=== PATIENT | female | born 1935 | race Caucasian/White ===

== ENCOUNTER 2017-03-20 20:10 | Emergency (ER) | payer OTHER, MEDICARE ==
[~2017-03-20] VITALS: Ht 152.4 cm; Wt 96.7 kg
[~2017-03-20 20:10] MED LIST: ASPI81TA28 PO; CARB100C2 PO; CARV25TA2 PO; CYAN10005 PO; FURO80TA63 PO; LOSA1TAB38 PO; METO5TAB25 PO; MULT-190 PO; NTRGSL/4 SL; ROSU5TAB PO; vit D3
[2017-03-20 20:16] VITALS: TEMP 36.7; Ht 152.4 cm; Wt 96.7 kg
[2017-03-20] MEDS ORDERED: MULT-610 PO (21:08)
[2017-03-20] MEDS ORDERED: COEN90TA PO (21:08)
[2017-03-20] MEDS ORDERED: BIOT1CAP4 PO (21:08)
--- NOTE | 2017-03-20 21:34 | DIAGNOSTIC IMAGING REPORT ---
RIGHT HUMERUS 2 VIEWS CLINICAL HISTORY: Unspecified trauma. FINDINGS: AP and lateral views of the right humerus are obtained. No prior studies are available for comparison at the time of dictation. The skeletal structures are osteopenic. There is no radiographic evidence of humeral fracture. 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 There is superior subluxation of the humeral head with loss of the subacromial space suggesting chronic rotator cuff injury. There is degenerative spurring along the humeral head. The elbow joint is grossly maintained. The overlying soft tissues are normal as imaged. IMPRESSION: Osteopenia and degenerative change as above. There is no radiographic evidence of right humeral fracture. Electronically signed by: Leo Trujillo M.D. 03/20/2017 9:32 PM Dictated Date/Time: 03/20/2017 9:31 PM
--- NOTE | 2017-03-20 21:38 | DIAGNOSTIC IMAGING REPORT ---
RIGHT KNEE 2 VIEWS CLINICAL HISTORY: Unspecified trauma. FINDINGS: AP and crosstable lateral views of the right knee are obtained. No prior studies are available for comparison at the time of dictation. The skeletal structures are osteopenic. No fracture is seen. A hinged right knee arthroplasty is in near anatomic alignment. No periprosthetic lucency is identified. There has been undersurface remodeling of the patella. No joint effusion is identified. Mild prepatellar soft tissue swelling is noted. IMPRESSION: Mild prepatellar soft tissue sign. No right knee fracture is identified. Electronically signed by: Leo Trujillo M.D. 03/20/2017 9:37 PM Dictated Date/Time: 03/20/2017 9:35 PM
--- NOTE | 2017-03-20 21:40 | DIAGNOSTIC IMAGING REPORT ---
LEFT SHOULDER 3 VIEWS CLINICAL HISTORY: Unspecified trauma. FINDINGS: 3 views of the left shoulder are obtained. No prior studies are available for comparison at the time of dictation. The skeletal structures are osteopenic. There is no radiographic evidence of fracture or dislocation. Advanced arthritic change is seen at the acromioclavicular joint as well as the glenohumeral joint. Large spurs arise from the humeral head. There is superior subluxation of the humeral head with near complete loss of the subacromial space suggesting chronic rotator cuff injury. The overlying soft tissues are within normal limits. Surgical clips are noted in the left axilla. The partially imaged left upper lobe lung parenchyma appears clear. There is advanced atherosclerotic calcification of the thoracic aorta. IMPRESSION: Osteopenia and advanced arthritic change as above. No fracture or dislocation is seen in the left shoulder. Electronically signed by: Leo Trujillo M.D. 03/20/2017 9:38 PM Dictated Date/Time: 03/20/2017 9:37 PM
[2017-03-20 22:52] VITALS: BP 153/88; PULSE 76; O2SAT 94
--- NOTE | 2017-03-20 23:01 | EMERGENCY ROOM VISIT NOTE ---
History Report prepared by Vinay: Alexandra Shaikh Under the Supervision of: Dr. Frank Rodriguez M.D. First contact with patient: 20:33 Chief Complaint: FALL Stated Complaint: FALL/ RT KNEE PAIN History of Present Illness The patient is an 81 year old female who presents to the Emergency Room with complaints of a fall EMERGENCY MEDICAL TECH. The patient went to sit on the toilet, but missed and fell forwards. She fell onto her right knee on the concrete floor and hit her right arm on a piece of furniture. She states that she just lost her balance and was not dizzy before the fall. She is having pain in her left shoulder. She denies any head injury or LOC. She denies any neck pain, chest pain, abdominal pain, or any bleeding. She has some SOB which is not new for her. She denies any recent illness. She has been eating well. She is not on any blood thinners. She lives at home with her and uses a walker to get around. She has a history of back pain which was not the cause of her fall today. She has a history of COPD, right knee replacement, and hypertension. She denies any history of heart problems. Source of History: patient Onset: EMERGENCY MEDICAL TECH Position: other (global) Quality: other (fall) Timing: other (episodic) Associated Symptoms: No LOC, No neck pain, No chest pain, No abdominal pain Note: Pt reports right knee pain, bilateral shoulder pain. Pt denies head injury, dizziness. Review of Systems See HPI for pertinent positives & negatives. A total of 10 systems reviewed and were otherwise negative. Past Medical & Surgical Medical Problems: (1) COPD (chronic obstructive pulmonary disease) Surgical Problems: (1) Status post right knee replacement Old medical records were reviewed. Nurse's notes were reviewed and I agree with. Family History Noncontributory secondary to age. Social History Smoking Status: Former Smoker Marital Status: Housing Status: lives with significant other Current/Historical Medications Scheduled Aspirin (Aspirin Ec), 81 MG PO DAILY Biotin (Biotin), 1 CAP PO DAILY Carvedilol (Coreg), 1 TAB PO BID Coenzyme Q10 (Ubidecarenone) (Co Q10), 1 TAB PO DAILY Cyanocobalamin (Vitamin B-12), 1,000 MCG PO DAILY Furosemide (Lasix), 1 TAB PO BID Losartan Potassium (Cozaar), 1 TAB PO DAILY Metolazone (Zaroxolyn), 5 MG PO DAILY Multiple Vitamins W/ Minerals (Centrum Adults), 1 TAB PO DAILY Nitroglycerin (Nitrostat), 1 TAB SL UD Ocuvite Preservision (Ocuvite Preservision), 1 TAB PO DAILY Rosuvastatin Calcium (Crestor), 1 TAB PO DAILY Miscellaneous Medications Carbamazepine (Tegretol), 100 MG PO Allergies Coded Allergies: Hydromorphone (Verified Allergy, Severe, SHORTNESS OF BREATH, 03/20/17) Physical Exam Vital Signs Date Time Temp Pulse Resp B/P (MAP) Pulse Ox O2 Delivery O2 Flow Rate FiO2 03/20/17 22:52 76 18 153/88 94 Room Air 03/20/17 21:55 61 18 137/50 93 Room Air 03/20/17 20:29 68 03/20/17 20:16 36.7 67 18 194/71 97 Room Air Physical Exam General: Non ill appearing older female in no acute distress. Well developed well nourished, breathing comfortably on room air. Normal speech HEENT: Normal cephalic atraumatic. Pupils are equal round and reactive to light. Sclerae anicteric. Extraocular movements are intact. Oropharynx is pink with moist mucous membranes. No swelling of the mouth lips or tongue. Neck: Supple with a midline trachea. No meningeal signs or stiffness, no JVD or bruits. No Stridor. Chest: Clear to auscultation bilaterally. No wheezes or rhonchi. No increased work of breathing. Heart: regular rate and rhythm. Abdomen: Soft nontender, nondistended without rebound guarding or rigidity. Extremities: Minimal pain in right humerus, but full ROM of shoulder and elbow. Pain with abduction of the left shoulder with some limitation, normal motor and sensory. Right knee able to flex and extend with a bruise that has pain with doing so. Spine/Back. Non tender to palpation. No CVA tenderness Skin: Good turgor without rashes. Neurologic exam: Cranial nerves two through 12 are intact. Motor and sensation are intact and symmetrical throughout. Medical Decision & Procedures ER Provider Diagnostic Interpretation: X-ray results as stated below per interpretation by me and the radiologist: RIGHT HUMERUS 2 VIEWS CLINICAL HISTORY: Unspecified trauma. FINDINGS: AP and lateral views of the right humerus are obtained. No prior studies are available for comparison at the time of dictation. The skeletal structures are osteopenic. There is no radiographic evidence of humeral fracture. 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 There is superior subluxation of the humeral head with loss of the subacromial space suggesting chronic rotator cuff injury. There is degenerative spurring along the humeral head. The elbow joint is grossly maintained. The overlying soft tissues are normal as imaged. IMPRESSION: Osteopenia and degenerative change as above. There is no radiographic evidence of right humeral fracture. Electronically signed by: Leo Trujillo M.D. 03/20/2017 9:32 PM Dictated Date/Time: 03/20/2017 9:31 PM RIGHT KNEE 2 VIEWS CLINICAL HISTORY: Unspecified trauma. FINDINGS: AP and crosstable lateral views of the right knee are obtained. No prior studies are available for comparison at the time of dictation. The skeletal structures are osteopenic. No fracture is seen. A hinged right knee arthroplasty is in near anatomic alignment. No periprosthetic lucency is identified. There has been undersurface remodeling of the patella. No joint effusion is identified. Mild prepatellar soft tissue swelling is noted. IMPRESSION: Mild prepatellar soft tissue sign. No right knee fracture is identified. Electronically signed by: Leo Trujillo M.D. 03/20/2017 9:37 PM Dictated Date/Time: 03/20/2017 9:35 PM LEFT SHOULDER 3 VIEWS CLINICAL HISTORY: Unspecified trauma. FINDINGS: 3 views of the left shoulder are obtained. No prior studies are available for comparison at the time of dictation. The skeletal structures are osteopenic. There is no radiographic evidence of fracture or dislocation. Advanced arthritic change is seen at the acromioclavicular joint as well as the glenohumeral joint. Large spurs arise from the humeral head. There is superior subluxation of the humeral head with near complete loss of the subacromial space suggesting chronic rotator cuff injury. The overlying soft tissues are within normal limits. Surgical clips are noted in the left axilla. The partially imaged left upper lobe lung parenchyma appears clear. There is advanced atherosclerotic calcification of the thoracic aorta. IMPRESSION: Osteopenia and advanced arthritic change as above. No fracture or dislocation is seen in the left shoulder. Electronically signed by: Leo Trujillo M.D. 03/20/2017 9:38 PM Dictated Date/Time: 03/20/2017 9:37 PM ED Course 2040: Past medical records reviewed. The patient was evaluated in room C3, and a complete history and physical examination were performed. 6: Upon reevaluation, the patient is resting comfortably. I discussed the results and treatment plan with her and her family. They verbalized agreement of the treatment plan. The patient was discharged home after ambulatory trial. Medical Decision Differentials include, but are not limited to; orthopedic injury, syncope, dislocation, contusion, fracture. This patient comes in as described above. She suffered mechanical fall and injured her right knee left shoulder and right humerus. She looks well otherwise there is no syncope. There is no head trauma. She's had no chest pain or shortness of breath. She's not any blood thinners. X-rays are obtained of the left shoulder as well as the right humerus and the right knee, there are no fractures or dislocations seen. She was able ambulate and feels up to going home. I did have an Burton wrap placed and she was encouraged to use her walker. Her left shoulder has some pain and limitation with abduction but does not appear to be dislocated. She could've had a rotator cuff injury. She does not feel she will do well with a sling given the walker use. She is going to use [id number] Tylenol and/or ibuprofen but do not exceed over-the- counter recommended dosages. She was encouraged to follow-up with her regular doctor tomorrow for recheck and return to ER if: increasing pain, worsening of symptoms, any new problems or concerns. She is happy with plan discharged to home. Medication Reconcilliation Current Medication List: was personally reviewed by me Blood Pressure Screening Patient's blood pressure: Elevated blood pressure Blood pressure disposition: Elevated BP felt to be situational Impression Primary Impression: Contusion of right knee Additional Impressions: Left shoulder strain Contusion of right arm Scribe Attestation The scribe's documentation has been prepared under my direction and personally reviewed by me in its entirety. I confirm that the note above accurately reflects all work, treatment, procedures, and medical decision making performed by me. Departure Information Dispostion Home / Self-Care Referrals Bettie Wyman D.O. (PCP) Forms HOME CARE DOCUMENTATION FORM, IMPORTANT VISIT INFORMATION Patient Instructions My [facility] Additional Instructions Rest. May use [id number] Tylenol and/or ibuprofen if needed. Do not exceed the [id number] recommended dosages Use Burton wrap if needed Use your walker when you are walking and getting up and down Return if: Increasing pain, worsening symptoms, fever or chills, any new problems or concerns Problem Qualifiers
== END 2017-03-20 23:07 | disposition home or self-care (01) ==
LOC: EDBD 20:10 → C.EDC 20:12
DX: S80.01XA Contusion of right knee, initial encounter (principal); S40.021A Contusion of right upper arm, initial encounter; S46.912A Strain of unspecified muscle, fascia and tendon at shoulder and upper arm level, left arm, initial encounter; W19.XXXA Unspecified fall, initial encounter; J44.9 Chronic obstructive pulmonary disease, unspecified; Z96.651 Presence of right artificial knee joint; Z87.891 Personal history of nicotine dependence; Z79.82 Long term (current) use of aspirin; Z79.899 Other long term (current) drug therapy; Z88.5 Allergy status to narcotic agent

== ENCOUNTER 2017-07-07 18:51 | Emergency (ER) | payer OTHER, MEDICARE ==
[~2017-07-07] VITALS: Ht 152.4 cm; Wt 97.0 kg
[~2017-07-07 18:51] MED LIST changes: +BIOT1CAP4 PO; +COEN90TA PO; +MULT-610 PO; -vit D3
[2017-07-07 18:55] VITALS: TEMP 37; Ht 152.4 cm; Wt 97.0 kg
[2017-07-07] MEDS ORDERED: OXYCODONE/ACETAMINOPHEN 5-325 TAB PO STA (19:11)
--- NOTE | 2017-07-07 19:35 | EMERGENCY ROOM VISIT NOTE ---
History First contact with patient: 18:53 Chief Complaint: LEG PAIN,LEG INJURY Stated Complaint: L KNEE PAIN History of Present Illness The patient is a 81 year old female who presents to the Emergency Room with complaints of left knee pain for approximately 1 month. The patient did sustain a mechanical fall and landed on the knee. She has had trouble with it since. She has tried Tylenol with no relief of the pain. She is having difficulty ambulating at home. She typically ambulates with a walker. She lives with her elderly . She denies any other injuries. No chest pain or difficulty breathing. Review of Systems 6 system review negative. Please see pertinent positives in the history of present illness section. Past Medical/Surgical History Medical Problems: (1) COPD (chronic obstructive pulmonary disease) Surgical Problems: (1) Status post right knee replacement Social History Smoking Status: Former Smoker Marital Status: Housing Status: lives with significant other Current/Historical Medications Scheduled Aspirin (Aspirin Ec), 81 MG PO HS Biotin (Biotin), 1 CAP PO DAILY Carbamazepine (Tegretol), 600 MG PO HS Carvedilol (Coreg), 1 TAB PO BID Cholecalciferol (Vitamin D3), 1,000 UNITS PO DAILY Coenzyme Q10 (Ubidecarenone) (Co Q-10), 200 MG PO QAM Cyanocobalamin (B-12), 2,500 MCG PO QAM Furosemide (Lasix), 80 TAB PO BID Losartan Potassium (Cozaar), 1 TAB PO DAILY Multiple Vitamins W/ Minerals (Centrum Adults), 1 TAB PO DAILY Ocuvite Preservision (Ocuvite Preservision), 1 TAB PO DAILY Rosuvastatin Calcium (Crestor), 1 TAB PO DAILY Sertraline (Zoloft), 25 MG PO QAM Scheduled PRN Nitroglycerin (Nitrostat), 1 TAB SL UD PRN for Chest Pain Oxycodone/Acetaminophen 5MG/325MG (Percocet 5MG/325MG), 1 TAB PO Q4H PRN for Pain Physical Exam Vital Signs Date Time Temp Pulse Resp B/P (MAP) Pulse Ox O2 Delivery O2 Flow Rate FiO2 07/07/17 20:48 58 18 159/64 94 Room Air 07/07/17 18:55 37.0 59 18 176/67 95 Room Air Physical Exam GENERAL: 81-year-old female, in no acute distress, nondiaphoretic, well- developed well-nourished. SKIN: The skin was HEAD: Normocephalic atraumatic. MUSCULOSKELETAL: LEFT LEG: Soft tissue swelling noted to the left knee. Flexion is limited secondary to pain. No ligamentous instability appreciated. Well-healed incisional scar over the patella noted. DP pulses +2 bilaterally. NEURO: Patient was alert and oriented to person place and time. Normal sensation to touch. No focal neurological deficits. Medical Decision & Procedures ER Provider Diagnostic Interpretation: Left knee x-ray IMPRESSION: 1. Small knee joint effusion without acute fracture or dislocation. 2. Left knee arthroplasty and prior patellar resurfacing without evidence of hardware complication. The above report was generated using voice recognition software. It may contain grammatical, syntax or spelling errors. Electronically signed by: Carlos Lewis M.D. 07/07/2017 8:19 PM Dictated Date/Time: 07/07/2017 8:18 PM The status of this report is Signed. Draft = Not yet reviewed or approved by Radiologist. Signed = Reviewed and approved by Radiologist. <AttendingPhy></AttendingPhy> <FamilyPhy>Bettie Wyman D.O.</FamilyPhy> < PrimaryPhy>Bettie Wyman D.O.</PrimaryPhy> <UnitNumber>[id number]</UnitNumber> <VisitNumber>[id number]</VisitNumber> Medications Administered Medications (Trade) Dose Ordered Sig/Tony Route Start Time Stop Time Status Last Admin Dose Admin Oxycodone/ Acetaminophen (Percocet 5-325mg Tab) 1 tab NOW STAT PO 07/07/17 19:11 07/07/17 19:12 DC 07/07/17 19:32 1 TAB ED Course The patient was seen and examined She was given 1 Percocet for pain Imaging was performed and reviewed The patient was reassessed. She was much more comfortable. We discussed the results of her x-rays. She was understanding. The patient was also seen and examined by myself supervising physician who is in agreement with my plan. She was given a knee immobilizer. She ambulated with a walker. Discharge instructions were reviewed, and she was discharged in good condition Medical Decision Differential diagnosis: Contusion, effusion, ligamentous injury, fracture This patient is an 81-year-old female that presents to emergency department with left knee pain after a mechanical fall approximately 1 month ago. On exam , she did have soft tissue swelling. She had limited range of motion of the knee. An x-ray shows a small joint effusion. No fracture. We discussed disposition options. She was offered a stay at [facility]. The patient was concerned about her demented at home. She would like to be discharged home. She was given information about home health. She was also given a prescription for Percocet as this helped with her pain. She was encouraged to return to the emergency department with any worsening symptoms or new concerns. She was in agreement with this plan. This chart was completed in part utilizing [employer] Speech Voice Recognition software. Attempts were made to minimize the grammatical errors, random word insertions, pronoun errors and incomplete sentences. Any formal questions or concerns about the content, text or information contained within the body of this dictation should be directly addressed to the provider for clarification. Medication Reconcilliation Current Medication List: was personally reviewed by me Blood Pressure Screening Patient's blood pressure: Elevated blood pressure Blood pressure disposition: Did not require urgent referral Impression Primary Impression: Left knee pain Departure Information Dispostion Home / Self-Care Condition GOOD Prescriptions Oxycodone/Acetaminophen 5MG/325MG (PERCOCET 5MG/325MG) Tab 1 TAB PO Q4H Y for Pain, #15 TAB For Initial Treatment Prov: Sarah Garcia PA-C 07/07/17 Referrals Bettie Wyman D.O. (PCP) Manuel Alcantara D.O. Patient Instructions My [facility] Additional Instructions You were evaluated in the emergency department for knee pain. There is a small amount of fluid on the knee consistent with an injury. No fractures were seen on the x-ray. Please use the knee immobilizer and a walker while up moving around. Please elevate the leg and apply ice for 20 minute intervals Please take one Percocet every 4 hours as needed for pain. Do not drink alcohol or drive with taking this medication. Please take a stool softener such as Colace with this medication as it may cause constipation. Please follow-up with your primary care physician this week for a recheck. Of note, your blood pressure was elevated at this visit. It should be rechecked. If this is not improving, please see an orthopedic doctor. A number has been provided for Dr. Alcantara Do not hesitate to return to the emergency department with any new or concerning symptoms
--- NOTE | 2017-07-07 20:21 | DIAGNOSTIC IMAGING REPORT ---
L KNEE 3 VIEWS HISTORY: 81 years-old Female l knee pain acute left knee pain with recent fall COMPARISON: None available TECHNIQUE: AP, lateral and sunrise views of the left knee FINDINGS: Left knee arthroplasty with prior patellar resurfacing noted. Bones are mildly demineralized. No evidence of hardware complication. No acute fracture or dislocation identified. Small knee joint effusion. Patella is well seated within the trochlear groove. Prominent marginal spurring of the patella. IMPRESSION: 1. Small knee joint effusion without acute fracture or dislocation. 2. Left knee arthroplasty and prior patellar resurfacing without evidence of hardware complication. The above report was generated using voice recognition software. It may contain grammatical, syntax or spelling errors. Electronically signed by: Carlos Lewis M.D. 07/07/2017 8:19 PM Dictated Date/Time: 07/07/2017 8:18 PM
--- NOTE | 2017-07-07 20:34 | EMERGENCY ROOM VISIT NOTE ---
ED Visit Note First contact with patient: 18:53 This Patient was discussed with the physician Tow Motor Driver, Sarah Garcia PA-C. The pertinent historical and physical exam findings were confirmed. I agree with the studies ordered and with the interpretations of these studies. I agree with the disposition and care plan.
[2017-07-07] MEDS ORDERED: CARB200T PO (20:42)
[2017-07-07] MEDS ORDERED: CHOL1000 PO (20:42)
[2017-07-07] MEDS ORDERED: COEN1CAP37 PO (20:42)
[2017-07-07] MEDS ORDERED: SERT25TA PO (20:42)
[2017-07-07] MEDS ORDERED: CYAN1TAB17 PO (20:42)
[2017-07-07] MEDS ORDERED: OXYC-57 PO (20:47)
[2017-07-07 21:40] VITALS: BP 158/61; PULSE 58; O2SAT 92
== END 2017-07-07 21:40 | disposition home or self-care (01) ==
LOC: C.EDC 18:51 → EDBD 18:51 → C.EDC 21:40
DX: M25.562 Pain in left knee (principal); J44.9 Chronic obstructive pulmonary disease, unspecified; Z91.81 History of falling; Z96.651 Presence of right artificial knee joint; Z87.891 Personal history of nicotine dependence; Z79.82 Long term (current) use of aspirin

== ENCOUNTER 2018-02-26 17:04 | Emergency (ER) | payer OTHER, MEDICARE ==
[~2018-02-26] VITALS: Ht 152.4 cm; Wt 82.0 kg
[~2018-02-26 17:04] MED LIST changes: -CARB100C2 PO; +CARB200T PO; +CHOL1000 PO; +COEN1CAP37 PO; -COEN90TA PO; -CYAN10005 PO; +CYAN1TAB17 PO; -METO5TAB25 PO; +SERT25TA PO
[2018-02-26 17:06] VITALS: TEMP 37; Ht 152.4 cm; Wt 82.0 kg
[2018-02-26] MEDS ORDERED: OXYCODONE/ACETAMINOPHEN 5-325 TAB PO STA (17:21)
--- NOTE | 2018-02-26 18:32 | DIAGNOSTIC IMAGING REPORT ---
ULTRASOUND L VENOUS DOPP LOWER EXT UNILAT CLINICAL HISTORY: Left leg pain COMPARISON STUDY: No previous studies for comparison. FINDINGS: Real-time and color flow Doppler imaging were performed. Flow was seen within the femoral, popliteal and calf veins with no intraluminal thrombus demonstrated. The saphenous vein is patent. IMPRESSION: No evidence of left lower extremity DVT. Electronically signed by: Gilles Walters M.D. 02/26/2018 6:31 PM Dictated Date/Time: 02/26/2018 6:31 PM
--- NOTE | 2018-02-26 18:43 | EMERGENCY ROOM VISIT NOTE ---
History First contact with patient: 17:13 Chief Complaint: BACK PAIN Stated Complaint: SCIATIC PAIN History of Present Illness The patient is a 82 year old female who presents to the Emergency Room via private vehicle accompanied by male with complaints of "sciatic pain". The patient states he has a history of sciatica. She notes that it originates in the left buttock region and extends down to her left leg. She is felt this way numerous times before and usually is alleviated by an injection in this region by Dr. Evans. Patient states that she came here today with the hope she would have an injection in this region. She denies any dysuria, chest pain, shortness of breath, fever, falls or trauma to the injury. Her pain is a 10/ 10. It is worse with sitting or movements. No abdominal pain. No lower extremity weakness, bowel or bladder incontinence, numbness or tingling in the genital region. Review of Systems A complete 10-point Review of Systems was discussed with the patient, with pertinent positives and negatives listed in the History of Present Illness. All remaining Review of Systems questions can be considered negative unless otherwise specified. Past Medical/Surgical History Medical Problems: (1) COPD (chronic obstructive pulmonary disease) Surgical Problems: (1) Status post right knee replacement Social History Smoking Status: Former Smoker Marital Status: Housing Status: lives with significant other Current/Historical Medications Scheduled Aspirin (Aspirin Ec), 81 MG PO HS Biotin (Biotin), 1 CAP PO DAILY Carbamazepine (Tegretol), 600 MG PO HS Carvedilol (Coreg), 1 TAB PO BID Cholecalciferol (Vitamin D3), 1,000 UNITS PO DAILY Coenzyme Q10 (Ubidecarenone) (Co Q-10), 200 MG PO QAM Cyanocobalamin (B-12), 2,500 MCG PO QAM Furosemide (Lasix), 80 TAB PO BID Losartan Potassium (Cozaar), 1 TAB PO DAILY Multiple Vitamins W/ Minerals (Centrum Adults), 1 TAB PO DAILY Ocuvite Preservision (Ocuvite Preservision), 1 TAB PO DAILY Rosuvastatin Calcium (Crestor), 1 TAB PO DAILY Sertraline (Zoloft), 25 MG PO QAM Scheduled PRN Nitroglycerin (Nitrostat), 1 TAB SL UD PRN for Chest Pain Oxycodone Ir (Roxicodone Ir), 1 TAB PO Q8 PRN for Pain Physical Exam Vital Signs Date Time Temp Pulse Resp B/P (MAP) Pulse Ox O2 Delivery O2 Flow Rate FiO2 02/26/18 20:16 80 20 186/67 98 02/26/18 18:44 54 18 170/57 99 Room Air 02/26/18 17:06 37.0 68 20 176/73 95 Room Air Physical Exam VITAL SIGNS - Vital signs and nursing notes were reviewed. Stable. Afebrile. Hypertensive. GENERAL -82-year-old female appearing her stated age who is in no acute distress. Communicates well with provider and answers questions appropriately. SKIN - Without rashes. No meningeal or petechial rash. Left lower extremity unremarkable to inspection. HEAD - NC/AT. EYES - PERRL with EOMI bilaterally. Sclera anicteric. Palpebral conjunctiva pink and moist with no injection noted. CARDIAC - RRR with S1/S2. No murmur, rubs, or gallops appreciated. ABDOMEN - Abdominal contour normal without pulsations or visible masses. BS normoactive all four quadrants. No tenderness, palpable masses, hepatosplenomegaly, or ascites noted. EXTREMITIES - No clubbing or peripheral cyanosis. No pretibial edema present. Tenderness of the left gluteal region extending down to the left foot. +5/5 strength noted in UE/LE bilaterally. NEUROLOGIC - Cranial nerves II through XII grossly intact. Sensory intact to light touch throughout. She is neurovascularly intact in left lower extremity. No bony tenderness. PSYCH - A&O, and cooperates fully with examiner. Pt is very pleasant and interacts well with examiner. Medical Decision & Procedures ER Provider Diagnostic Interpretation: ULTRASOUND L VENOUS DOPP LOWER EXT UNILAT CLINICAL HISTORY: Left leg pain COMPARISON STUDY: No previous studies for comparison. FINDINGS: Real-time and color flow Doppler imaging were performed. Flow was seen within the femoral, popliteal and calf veins with no intraluminal thrombus demonstrated. The saphenous vein is patent. IMPRESSION: No evidence of left lower extremity DVT. Electronically signed by: Gilles Walters M.D. 02/26/2018 6:31 PM Dictated Date/Time: 02/26/2018 6:31 PM LUMBAR SPINE for VIEWS CLINICAL HISTORY: Back pain with left leg radiculopathy. COMPARISON STUDY: No previous studies for comparison. FINDINGS: There is a mild spinal curvature convex to the left. There are postsurgical changes from right hip arthroplasty. 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 The study is limited from a technical standpoint. A true lateral view was not obtained. There are multilevel degenerative changes. No acute fractures are visualized. IMPRESSION: 1. Moderately limited study from a technical standpoint 2. Multilevel degenerative change. No acute fractures identified. Electronically signed by: Gilles Walters M.D. 02/26/2018 7:18 PM Dictated Date/Time: 02/26/2018 7:16 PM Medications Administered Medications (Trade) Dose Ordered Sig/Tony Route Start Time Stop Time Status Last Admin Dose Admin Oxycodone/ Acetaminophen (Percocet 5-325mg Tab) 1 tab NOW STAT PO 02/26/18 17:21 02/26/18 17:24 DC 02/26/18 17:53 1 TAB Oxycodone HCl (Roxicodone Immediate Rel Tab) 5 mg NOW STAT PO 02/26/18 18:51 02/26/18 18:53 DC 02/26/18 18:57 5 MG Medical Decision Patient was seen and evaluated as above in room D9. Review was performed of nursing notes and vital signs. After obtaining a thorough history and physical examination the above work up was performed. She presents to us today with left lower extremity pain. She has had this before. She came here with hopes of receiving an injection in this region of which she is received in the past by Dr. Evans. I informed her that the emergency department here does not perform anesthetic type injections into the specific regions. I did offer her though however imaging of the back and ultrasound of the lower extremity to rule out DVT. These were both negative with results as above. No fracture or dislocation. She was given Percocet here as she has had this before as well as an oxycodone tablet. She is reevaluated and feeling slightly better. I did enlist the help of our case management team to help establish a follow-up as soon as possible with Dr. evans so she could have the injection. Patient seemed very happy about this. I also informed her she could use lidocaine patches. At this time I suspect this truly is sciatic nerve pain and do not suspect any fracture, dislocation, abdominal injury or emergent process. Vital signs are stable. She is hypertensive I believe secondary to her amount of pain. She will be given a short prescription of oxycodone, as I was going to provide her Moira but the Tylenol will interact with her other meds. She was thoroughly educated upon risk of this medication. She already ambulates at home with a walker. The patient was educated upon management, had questions answered prior to discharge, and was discharged home in good condition. No red flags in the [place] drug monitoring system. Case was discussed with the attending physician. I attest that I have personally reviewed the patient medication list. I attest that I have reviewed the patient's blood pressure and it was found to be likely elevated secondary to situation In the evaluation and treatment of this patient the following differential diagnoses were entertained: Fracture, dislocation, cauda equina syndrome, UTI, acute abdominal process, DVT, among others. Impression Primary Impression: Sciatica Departure Information Dispostion Home / Self-Care Condition GOOD Prescriptions Oxycodone Ir (Roxicodone Ir) 5 Mg Tab 1 TAB PO Q8 Y for Pain, #9 TAB For Initial Treatment Prov: Homero Hoffman PA-C 02/26/18 Referrals Bettie Wyman D.O. (PCP) Patient Instructions My [facility] Additional Instructions You have been treated in the Emergency Department for Back Pain. You have received pain medicine in the emergency department which impairs your ability to operate a vehicle. It is illegal for you to drive after receiving these medicines. You have been prescribed oxycodone immediate release to be used for pain control. Please only take this for severe pain. This is a narcotic medication. You cannot drive or consume alcohol while on this medicine. This medicine should only be used for pain that cannot be controlled with over-the- counter pain medicines. If this is an acute injury, ice can be applied to the area of pain for the first 3 days to help decrease pain and inflammation. After the first 3 days, a heating pad can be used over the area for continued soothing relief. You should schedule a follow-up appointment in 2-3 days with your Primary Care Provider for further evaluation and treatment of your back pain. Please expect a phone call from Dr. pulido's office or from here regarding follow-up with Dr. evans. Return to the Emergency Department if your current symptoms worsen despite treatment course outlined above, or if you develop any of the following symptoms : intractable pain despite aforementioned treatment course, loss of control of your bowel or bladder, numbness or tingling in your groin, or development of a fever.
[2018-02-26] MEDS ORDERED: OXYCODONE HCL IR 5 MG TAB (IMMEDIATE RELEASE) PO STA (18:51)
--- NOTE | 2018-02-26 19:19 | DIAGNOSTIC IMAGING REPORT ---
LUMBAR SPINE for VIEWS CLINICAL HISTORY: Back pain with left leg radiculopathy. COMPARISON STUDY: No previous studies for comparison. FINDINGS: There is a mild spinal curvature convex to the left. There are postsurgical changes from right hip arthroplasty. 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 The study is limited from a technical standpoint. A true lateral view was not obtained. There are multilevel degenerative changes. No acute fractures are visualized. IMPRESSION: 1. Moderately limited study from a technical standpoint 2. Multilevel degenerative change. No acute fractures identified. Electronically signed by: Gilles Walters M.D. 02/26/2018 7:18 PM Dictated Date/Time: 02/26/2018 7:16 PM
[2018-02-26] MEDS ORDERED: OXYC-90 PO (19:57)
[2018-02-26 20:16] VITALS: BP 186/67; PULSE 80; O2SAT 98
== END 2018-02-26 20:18 | disposition home or self-care (01) ==
LOC: C.EDB 17:06 → C.EDD 20:18
DX: M54.32 Sciatica, left side (principal); J44.9 Chronic obstructive pulmonary disease, unspecified; Z87.891 Personal history of nicotine dependence; Z79.82 Long term (current) use of aspirin; Z79.899 Other long term (current) drug therapy

== ENCOUNTER 2019-02-25 08:49 | Inpatient (IN) ==
[2019-02-25] MEDS ORDERED: ACETAMINOPHEN 1,000 MG/100 ML VIAL IV STA (09:19)
[2019-02-25] MEDS ORDERED: SODIUM CHLORIDE 0.9% 500 ML IV SCH (09:30)
[2019-02-25 09:52] LABS: Basophils # (auto) 0.02 K/uL (0-0.2); Basophils % (auto) 0.2 %; Hematocrit (blood only) 41.8 % (37-47); Immature Granulocytes # (auto) 0.03 K/uL (0.00-0.02); Immature Granulocytes % (auto) 0.2 %; Lymphocytes # (auto) 2.08 K/uL (1.2-3.4); Lymphocytes % (auto) 17.1 %; Mean Corpuscular Hgb Conc 33.5 g/dL (32-36); Mean Corpuscular Volume 89.3 fL (80-100); Mean Platelet Volume 9.6 fL (7.4-10.4); Monocytes # (auto) 0.92 K/uL (0.11-0.59); Monocytes % (auto) 7.6 %; Neutrophils # (auto) 9.13 K/uL (1.4-6.5); Neutrophils % (auto) 74.9 %; Platelet Count 228 K/uL (130-400); RDW Coefficient of Variation 16.7 % (11.5-14.5); RDW Standard Deviation 54.5 fL (36.4-46.3); Red Blood Count 4.68 M/uL (4.2-5.4); White Blood Count 12.18 K/uL (4.8-10.8)
[2019-02-25 09:59] LABS: Alanine Aminotransferase 23 U/L (12-78); Albumin Level 3.8 gm/dl (3.4-5.0); Aspartate Aminotransferase 48 U/L (15-37); BUN Creatinine Ratio 23.9 (10-20); Bilirubin Direct < 0.1 mg/dl (0-0.2); Blood Urea Nitrogen 18 mg/dl (7-18); Calcium 9.4 mg/dl (8.5-10.1); Carbon Dioxide 29 mmol/L (21-32); Chloride 105 mmol/L (98-107); Est GFR (African American) 83.5; Glucose 101 mg/dl (70-99); Magnesium 2.2 mg/dl (1.8-2.4); Potassium 3.1 mmol/L (3.5-5.1); Sodium 142 mmol/L (136-145)
--- NOTE | 2019-02-25 10:04 | XRay Report ---
XR chest 1V portable CLINICAL HISTORY: Atypical chest pain COMPARISON STUDY: 01/26/2019 FINDINGS: The cardiac and mediastinal contours are normal. There is no evidence of focal pulmonary co nsolidation. There is no evidence of failure. No pleural effusions are visualized.[Advanced arthritic changes are present within the shoulders with evidence of bilateral rotator cuff tear. IMPRESSION: No active disease in the chest. Electronically signed by: Gilles Walters M.D. 02/25/2019 10:02 AM
--- NOTE | 2019-02-25 10:05 | XRay Report ---
XR knee LT 3V, XR tibia fibula LT 2V HISTORY: 83 years-old Female pain fall,down 24hrs acute left lower extremity pain status post fall COMPARISON: None available TECHNIQUE: 3 views of the left knee and 2 views of the left tibia and fibula FINDINGS: KNEE: Demineralized appearance of the bones. Total joint arthroplasty and patellar resurfacing. No acute fr acture, dislocation or evidence of hardware complication. Patellar bernadine. TIBIA/FIBULA: Soft tissue prominence of the mid to lower leg and ankle. Degenerative changes of the tibiotalar join t without acute fracture, dislocation or opaque foreign body identified. Peripheral arterial calcific ations are noted. Ill-defined sclerosis about the calcaneal body. IMPRESSION: Soft tissue swelling without acute fracture or dislocation identified. The above report was generated using voice recognition software. It may contain grammatical, syntax o r spelling errors. Electronically signed by: Carlos Lewis M.D. 02/25/2019 10:04 AM
[2019-02-25 10:14] LABS: INR 1.1 (0.9-1.1); Prothrombin Time 11.2 Seconds (9.0-12.0)
[2019-02-25 10:21] LABS: Albumin Globulin Ratio 0.8 (0.9-2); Alkaline Phosphatase 134 U/L (45-117); Bilirubin,Total 0.6 mg/dl (0.2-1); Creatine Kinase 1028 U/L (26-192); Globulin 4.8 gm/dl (2.5-4.0); Phosphorus 3.8 mg/dl (2.5-4.9); Total Protein 8.6 gm/dl (6.4-8.2); Troponin I 0.097 ng/ml (0-0.045)
--- NOTE | 2019-02-25 11:46 | Emergency Department Note ---
Entered by Pao Menjivar acting as a scribe for Blake Castillo MD History of Present Illness General Chief complaint: Fall Stated complaint: Fall. Prolonged down time. Time Seen by Provider: 02/25/19 08:53 Source: patient History of Present Illness Onset (ago): day(s) (yesterday) Location: head Pain Consistency: + other (episode) Quality: + other (fall) Associated symptoms: + denies other symptoms (fever, chills, cough, congestion, nausea, or vomiting) and + other (left leg pain, intermittent diarrhea) The patient is a 83 year old female that is presenting to the Emergency Room with complaints of an episode of a fall that occurred yesterday around 1030. The patient states that she lost her balance and fell onto to her bottom. She reports that she rolled onto her back to lie down. She denies any head trauma. She states that she was unable to stand up on her own. The patient reports that she uses a walker at baseline but notes that she was not using the walker when she fell. She notes that she was standing beside her walker and was able to push it out of the way during the fall. She denies any pain currently. She states that she was on the floor for 22 hours until she was found by her visiting nurse aide this morning. She notes that her nurse visits 3 days a week. The patient reports some left leg pain following the fall. She notes that her left ankle is turned inwards at baseline. She states that she has a wound on her left heel and notes that the dressing is changed by her nurse aide. She denies any fever, chills, cough, congestion, nausea, or vomiting. She notes that she has had diarrhea once or twice recently. She denies any other recent illnesses. Home Medications Home Medications Medication Instructions Recorded Confirmed Type Breo Ellipta 1 inh INHALATION HS 09/22/18 02/25/19 History Centrum 1 tab PO QAM 09/22/18 02/25/19 History Ocuvite with Lutein 1 tab PO QAM 09/22/18 02/25/19 History aspirin [Aspir-81] 81 mg PO HS 09/22/18 02/25/19 History biotin 1 mg PO PM 09/22/18 02/25/19 History carbamazepine [Tegretol] 600 mg PO HS 09/22/18 02/25/19 History cholecalciferol (vitamin D3) 1,000 unit PO PM 09/22/18 02/25/19 History [Vitamin D3] coQ10 (ubiquinol) 200 mg PO QAM 09/22/18 02/25/19 History cyanocobalamin (vitamin B-12) 2,000 mcg PO QAM 09/22/18 02/25/19 History [Vitamin B-12] gabapentin 100 mg PO BID 09/22/18 02/25/19 History losartan 100 mg PO QAM 09/22/18 02/25/19 History nitroglycerin [Nitrostat] 0.4 mg SUBLINGUAL DIRECTED PRN 09/22/18 02/25/19 History rosuvastatin [Crestor] 5 mg PO QPM 09/22/18 02/25/19 History acetaminophen [Tylenol] 650 mg PO HS 01/26/19 02/25/19 History donepezil 5 mg PO QAM 01/26/19 02/25/19 History furosemide 80 mg PO BID 01/26/19 02/25/19 History sertraline 150 mg PO QAM 01/26/19 02/25/19 History carvedilol 12.5 mg tablet 12.5 mg PO BID 02/16/19 02/25/19 History lorazepam 0.5 mg PO HS PRN 02/25/19 02/25/19 History Allergies Allergy/AdvReac Type Severity Reaction Status Date / Time hydromorphone Allergy Severe SHORTNESS Verified 02/16/19 10:27 OF BREATH Past Med/Surg History Medical History COPD (chronic obstructive pulmonary disease) (Chronic) Chronic diastolic heart failure Chronic pulmonary hypertension Depression Epilepsy Macular degeneration Obstructive sleep apnea Rheumatoid arthritis Arthritis (Chronic) COPD (chronic obstructive pulmonary disease) (Chronic) Depression (Chronic) HTN (hypertension) (Chronic) H/O: hysterectomy Surgical History Status post right knee replacement (Chronic) Status post Achilles tendon repair Status post appendectomy Status post cholecystectomy Status post hysterectomy History of S/P hip replacement Family History Father Hypertension Mother Breast cancer Other Family history non-contributory Social History Preferred Language: Northern Irish Communication Ability: Effective Precast Molder Required: No Beliefs That Will Affect Care: None marital status: Current Living Situation: Alone current occupational status: retired Other Information That Helps Us Care for You: No Feels Safe at Home: Yes Safety Concerns: Feels Safe At This Time Smoking Status: Former smoker Cigarettes Per Day: 40 Second Hand Exposure: No Tobacco Cessation Education Requested by Patient: No Hx Alcohol Use: Yes Alcohol type: wine Hx Substance Use: No Review of Systems See HPI for pertinent positives & negatives. and A total of 10 systems reviewed and were otherwise negative Physical Exam Vital Signs Vital Signs - 24 hr 02/25/19 08:45 02/25/19 11:22 Temperature 36.8 C Temperature Source Oral Sepsis Recent Fever Within 48 Hours No Sepsis New/Unexplained Change in Mental Status No Sepsis Action Taken by Nursing No Action Required Pulse Rate 75 Pulse Rate [Right Finger] 64 Respiratory Rate 18 19 Respiratory Effort / Characteristics Non-Labored Respiratory Depth Normal Respiratory Pattern Regular Blood Pressure 132/76 Blood Pressure [Right Arm] 148/56 H Blood Pressure Mean 94 Blood Pressure Mean [Right Arm] 86 Blood Pressure Position Sitting Pulse Oximetry 96 96 Oxygen Delivery Method Room Air Room Air GENERAL: Awake, alert, chronically ill-appearing, in no distress HENT: Normocephalic, atraumatic. Oropharynx with dry mucous membranes and otherwise unremarkable. EYES: Normal conjunctiva. Sclera non-icteric. EOMI. No nystamgus. PEARRL. NECK: Supple. No nuchal rigidity. FROM. No JVD. RESPIRATORY: Clear to auscultation bilaterally. CARDIAC: Regular rate, normal rhythm. Extremities warm and well perfused. Pulses equal. ABDOMEN: Soft, non-distended. No tenderness to palpation. No rebound or guarding. No masses. RECTAL: Deferred. MUSCULOSKELETAL: Chest examination reveals no tenderness. The back is symmetrical on inspection without obvious abnormality. There is no CVA tenderness to palpation. No joint edema. LOWER EXTREMITIES: Calves are equal size bilaterally. No edema. No discoloration. Tenderness to left lower leg with mild pre-tibial ecchymosis. No bony crepitus. Pain with ROM of left hip and knee active > passive. Distal PMS intact. Left ankle with chronic medial ankle rotation and chronic lateral heel ulcer underneath dressing. NEURO: Normal sensorium. No sensory or motor deficits noted. SKIN: No rash or jaundice noted. Course 0910:The patient was evaluated in room B07. A complete history and physical examination was performed. 1248: I discussed the patient's case with Markus Michel, who will evaluate the patient for further management and care. 1250: Upon reevaluation, the patient is resting comfortably. I discussed laboratory and radiographic results with the patient. She verbalized agreement of the treatment plan. The patient will be evaluated for further management and care. Consultations Consultation #1: I discussed the patient's case with Markus Michel, who will evaluate the patient for further management and care. Time: 12:48 Administered Medications Aspirin (Ecotrin Ectab) 81 mg PO HS MIKE Stop: 03/27/19 20:59 Last Admin: 02/25/19 20:53 Dose: 81 mg Documented by: [id number] Carbamazepine (Tegretol) 600 mg PO HS MIKE Stop: 03/27/19 20:59 Last Admin: 02/25/19 20:53 Dose: 600 mg Documented by: [id number] Carvedilol (Coreg) 12.5 mg PO BID MIKE Stop: 03/27/19 20:59 Last Admin: 02/25/19 20:54 Dose: 12.5 mg Documented by: [id number] Gabapentin (Neurontin) 100 mg PO BID MIKE Stop: 03/27/19 20:59 Last Admin: 02/25/19 20:53 Dose: 100 mg Documented by: [id number] Sodium Chloride (Nss 1000ml) 1,000 mls @ 125 mls/hr IV .Q8H MIKE Stop: 02/25/19 22:40 Last Admin: 02/25/19 15:17 Dose: 125 mls/hr Documented by: [id number] Ioversol (Optiray 320 100ml) 94 ml IV ONCE PRN PRN Reason: Interaction Checking Stop: 03/01/19 12:12 Last Admin: 02/25/19 12:14 Dose: 94 ml Documented by: [id number] Miscellaneous (Order Awaiting Action) 1 ea N/A QS MIKE Stop: 03/27/19 15:59 Last Admin: 02/25/19 15:39 Dose: Not Given Documented by: [id number] Sertraline HCl (Zoloft) 150 mg PO QAM MIKE Stop: 03/27/19 14:34 Last Admin: 02/25/19 16:16 Dose: 150 mg Documented by: [id number] Vitamin D (Vitamin D3) 1,000 units PO QPM MIKE Stop: 03/27/19 20:59 Last Admin: 02/25/19 20:54 Dose: 1,000 units Documented by: [id number] Discontinued Medications Sodium Chloride (Nss) 500 mls @ 999 mls/hr IV .Q31M MIKE Stop: 02/25/19 10:00 Last Infusion: 02/25/19 10:52 Dose: 0 mls/hr Documented by: [id number] Admin: 02/25/19 09:42 Dose: 999 mls/hr Documented by: [id number] Acetaminophen (Ofirmev) 1,000 mg in 100 mls @ 400 mls/hr IV NOW STA Stop: 02/25/19 09:33 Last Infusion: 02/25/19 10:52 Dose: 0 mls/hr Documented by: [id number] Admin: 02/25/19 09:48 Dose: 400 mls/hr Documented by: [id number] Potassium Chloride (Klor-Con M20) 40 meq PO NOW ONE Stop: 02/25/19 21:01 Last Admin: 02/25/19 20:52 Dose: 40 meq Documented by: [id number] Medical Decision Making Differential Diagnosis Differential diagnosis: Etiologies such as fracture, dislocation, intra-abdominal, pneumothorax, intrathoracic , intracranial, neurologic, as well as other traumatic pathologies were entertained. Medical Records Attestation: I reviewed the patient's medical records. Home Medications Current Medication List: was personally reviewed by me Laboratory Data Attestation: I reviewed the patient's lab results. Result diagrams: 02/25/19 09:13 02/25/19 09:13 Lab Results 02/25/19 02/25/19 02/25/19 Range/Units 09:13 09:13 09:13 WBC 12.18 H (4.8-10.8) K/uL RBC 4.68 (4.2-5.4) M/uL Hgb 14.0 (12.0-16.0) g/dL Hct 41.8 (37-47) % MCV 89.3 (80-100) fL MCH 29.9 (25-34) pg MCHC 33.5 (32-36) g/dL RDW Std Deviation 54.5 H (36.4-46.3) fL RDW Coeff of Marco 16.7 H (11.5-14.5) % Plt Count 228 (130-400) K/uL MPV 9.6 (7.4-10.4) fL Immature Gran % (Auto) 0.2 % Neut % (Auto) 74.9 % Lymph % (Auto) 17.1 % [place] % (Auto) 7.6 % Eos % (Auto) 0.0 % Baso % (Auto) 0.2 % Immature Gran # (Auto) 0.03 H (0.00-0.02) K/uL Neut # (Auto) 9.13 H (1.4-6.5) K/uL Lymph # (Auto) 2.08 (1.2-3.4) K/uL [place] # (Auto) 0.92 H (0.11-0.59) K/uL Eos # (Auto) 0.00 (0-0.5) K/uL Baso # (Auto) 0.02 (0-0.2) K/uL PT 11.2 (9.0-12.0) Seconds INR 1.1 (0.9-1.1) Sodium 142 (136-145) mmol/L Potassium 3.1 L (3.5-5.1) mmol/L Chloride 105 (98-107) mmol/L Carbon Dioxide 29 (21-32) mmol/L Anion Gap 8.0 (3-11) BUN 18 (7-18) mg/dl Creatinine 0.76 (0.6-1.2) mg/dl Est Cr Clr Drug Dosing Not Reportable Est GFR ( Amer) 83.5 Est GFR (Non-Af Amer) 72.0 BUN/Creatinine Ratio 23.9 H (10-20) Glucose 101 H (70-99) mg/dl Calcium 9.4 (8.5-10.1) mg/dl Phosphorus 3.8 (2.5-4.9) mg/dl Magnesium 2.2 (1.8-2.4) mg/dl Total Bilirubin 0.6 (0.2-1) mg/dl Direct Bilirubin < 0.1 (0-0.2) mg/dl AST 48 H (15-37) U/L ALT 23 (12-78) U/L Alkaline Phosphatase 134 H (45-117) U/L Total Creatine Kinase 1028 H (26-192) U/L Troponin I 0.097 H* (0-0.045) ng/ml Total Protein 8.6 H (6.4-8.2) gm/dl Albumin 3.8 (3.4-5.0) gm/dl Globulin 4.8 H (2.5-4.0) gm/dl Albumin/Globulin Ratio 0.8 L (0.9-2) Lipase 69 L (73-393) U/L Imaging Data Radiologist's Impression: Radiology results as stated below per my review and the radiologist's interpretation: XR chest 1V portable CLINICAL HISTORY: Atypical chest pain COMPARISON STUDY: 01/26/2019 FINDINGS: The cardiac and mediastinal contours are normal. There is no evidence of focal pulmonary consolidation. There is no evidence of failure. No pleural effusions are visualized.[Advanced arthritic changes are present within the shoulders with evidence of bilateral rotator cuff tear. IMPRESSION: No active disease in the chest. Electronically signed by: Gilles Walters M.D. 02/25/2019 10:02 AM XR knee LT 3V, XR tibia fibula LT 2V HISTORY: 83 years-old Female pain fall,down 24hrs acute left lower extremity pain status post fall COMPARISON: None available TECHNIQUE: 3 views of the left knee and 2 views of the left tibia and fibula FINDINGS: KNEE: Demineralized appearance of the bones. Total joint arthroplasty and patellar resurfacing. No acute fracture, dislocation or evidence of hardware complication. Patellar bernadine. TIBIA/FIBULA: Soft tissue prominence of the mid to lower leg and ankle. Degenerative changes of the tibiotalar joint without acute fracture, dislocation or opaque foreign body identified. Peripheral arterial calcifications are noted. Ill-defined sclerosis about the calcaneal body. IMPRESSION: Soft tissue swelling without acute fracture or dislocation identified. The above report was generated using voice recognition software. It may contain grammatical, syntax or spelling errors. Electronically signed by: Carlos Lewis M.D. 02/25/2019 10:04 AM ABDOMEN AND PELVIS CT WITH IV CONTRAST HISTORY: Acute generalized abdominal pain status post fall pain fall,down 24hrs TECHNIQUE: Multiaxial CT images of the abdomen and pelvis were performed following the use of intravenous contrast. A dose lowering technique was utilized adhering to the principles of ALARA. COMPARISON STUDY: Chest CT of same day, CTA abdomen and pelvis 12/18/2018 FINDINGS: The lung bases are generally clear. No pneumatosis or pneumoperitoneum. Imaged inferior cardiac chambers are upper limits of normal in size. Trace pericardial effusion. Liver is unremarkable. Cholecystectomy. Indeterminate 4 mm hypodense lesion of the inferior spleen, too small to characterize. Mild generalized pancreatic atro phy. Enlargement of the bilateral adrenal glands suggestive of hyperplastic changes, left greater than right. There are a few subcentimeter hypodense foci about the bilateral kidneys suggestive of probable cysts. No renal or ureteral calculi or obstructive uropathy identified. Ureters and urinary bladder are unremarkable. Uterus appears surgically absent. No adnexal mass lesions. Extensive calcified plaque of the abdominal aorta and branch vessels with bilateral renal arterial stenosis. Complete occlusion of the right common iliac artery with reconstitution of flow about the right external iliac artery redemonstrated. Multifocal areas of stenoses again noted about the left common iliac artery. Multifocal stenoses about the right common femoral artery. There is no adenopathy identified. Small hiatal hernia. Mild nonspecific wall thickening about the distal stomach. 7 mm fatty attenuating focus of the gastric lumen compatible with lipoma. No bowel obstruction. Mild nonspecific wall thickening about the rectum. Colonic diverticulosis without acute diverticulitis. Terminal ileum is unremarkable. Postoperative changes about the anterior abdominal wall. Atrophy of the rectus musculature. Streak artifact from right hip total joint arthroplasty. Grade 1 anterolisthesis L4 on L5, likely degenerative. No acute fracture or subluxation identified. Lumbar levoscoliosis. IMPRESSION: 1. No evidence of acute posttraumatic solid organ injury or acute fracture. 2. Mild nonspecific wall thickening about the distal stomach and rectum. 3. Colonic diverticulosis without acute diverticulitis. 4. Extensive calcified plaque about the abdominal aorta with multifocal luminal narrowing redemonstrated. Complete occlusion of the right common iliac artery with reconstitution of flow within the right external iliac artery is again noted. 5. Additional findings as above. Electronically signed by: Carlos Lewis M.D. 02/25/2019 12:[address] DOSE: 362.78 mGycm HISTORY: Neck pain fall,down 24hrs TECHNIQUE: Multiaxial CT images of the cervical spine were performed and reformatted in the sagittal and coronal plane without the use of contrast. A dose lowering technique was utilized adhering to the principles of ALARA. COMPARISON: None. FINDINGS: No fractures. No subluxation. Prevertebral soft tissues and the C1-C2 interval are intact. No pneumothorax. A few small bilateral thyroid nodules. Posterior fusion defect at C1. Moderate disc space narrowing at C5-C6. Severe disc space narrowing at C3-C4 and C4-C5 with endplate osteophytes. Moderate facet degenerative changes throughout the cervical spine. There is straightening of the cervical spine. IMPRESSION: No fractures within the cervical spine. Electronically signed by: Esvin Cardenas M.D. 02/25/2019 12:[address] OF THE CHEST WITH IV CONTRAST CLINICAL HISTORY: Chest pain status post trauma COMPARISON STUDY: No previous studies for comparison. TECHNIQUE: Following the IV administration of 94 mL of Optiray-320, CT of the thorax was performed from the thoracic inlet to the lung bases. Images are reviewed in the axial, sagittal, and coronal planes. IV contrast was administered without complication. A dose lowering technique was utilized adhering to the principles of ALARA. CT DOSE: 1015.59 mGycm FINDINGS: Thyroid: There is an 8 mm left lobe thyroid nodule. Thoracic aorta: There are no findings to indicate acute thoracic aortic injury descending thoracic aorta measures 35 mm. Pulmonary vasculature: The pulmonary trunk is normal in caliber. There are no central filling defects identified to suggest pulmonary embolus. Note that this examination was not protocoled for the evaluation of pulmonary emboli. HEART: The heart is borderline enlarged. There are mild coronary artery calcifications. Lungs and pleural spaces: There is no pneumothorax. There are no pleural effusions. There are mild dependent atelectatic changes. There is no focal pulmonary consolidation. There is an irregular marginated 6 mm left upper lobe pulmonary nodule (image #[id number]). There is a solid 10 mm left upper lobe pulmonary nodule (image #[id number]). Mediastinum: There is no mediastinal lymphadenopathy. Leelee: There is no evidence of pathologic hilar adenopathy Axilla: There is no evidence pathologic axillary lymphadenopathy Upper abdomen: There is bilateral low density adrenal thickening likely second lupe to adrenal hyperplasia. Skeletal structures: No acute fractures are visualized. There are multilevel degenerative changes present within the spine. There is bridging calcification of the anterior longitudinal ligament. There are advanced arthritic changes present within the shoulders. IMPRESSION: 1. No evidence of acute intrathoracic injury 2. 10 mm and 6 mm left upper lobe pulmonary nodules. A 3 month follow-up CT scan is recommended. Please refer to below summary of Fleischner criteria recommendations for follow- up of incidental CT nodules (Laura Ardon, Guidelines for management of small pulmonary nodules detected on CT scans: A statement from the Fleischner Society, Radiology 237: [phone].) SOLID NODULES Solitary nodule size: <6 mm * low risk patients: no follow-up needed * high risk patients: optional CT at 12 months Solitary nodule size: 6-8 mm * low risk patients: follow-up at 6-12 months, then consider further follow-up at 18-24 months * high risk patients: initial follow-up CT at 6-12 months and then at 18-24 months if no change Solitary nodule size: >8 mm * either low or high risk patients - consider follow-up CT at 3 months, and/or CT-PET, and/or biopsy Multiple nodules size: <6 mm * low risk patients: no routine follow-up * high risk patients: optional CT at 12 months Multiple nodules size: 6-8 mm * low risk patients: follow-up at 3-6 months, then consider further follow-up at 18-24 months * high risk patients: follow-up at 3-6 months, then at 18-24 months if no change Multiple nodules size: >8 mm * low risk patients: follow-up at 3-6 months, then consider further follow-up at 18-24 months * high risk patients: follow-up at 3-6 months, then at 18-24 months if no change Note: newly detected indeterminate nodule in persons 35 years of age or older. * low risk patients: minimal or absent history of smoking and/or other known risk factors * high risk patients: history of smoking or of other known risk factors (e.g. first degree relative with lung cancer, or exposure to asbestos, radon, uranium) * if a nodule up to 8 mm is partly solid or is ground glass further follow-up is required after 24 months to exclude possible slow growing adenocarcinoma (VARGAS) SUBSOLID NODULES Solitary pure ground-glass nodule * nodule size <6 mm - no CT follow-up required * nodule size >=6 mm - follow-up CT at 6-12 months, then every 2 years until 5 years Solitary part-solid nodule * nodule size <6 mm - no CT follow-up required * nodule size >=6 mm - follow-up CT at 3-6 months. If unchanged, and solid component remains <6 mm, then annual follow-up for 5 years Multiple subsolid nodules * nodule size <6 mm - follow-up CT at 3-6 months, consider further follow-up at 2 and 4 years if stable * nodule size >=6 mm - follow-up CT at 3-6 months, subsequent management based on the most suspicious nodule(s) Electronically signed by: Gilles Walters M.D. 02/25/2019 12:[address] head/brain wo con CLINICAL HISTORY: 83 years-old Female with pain fall,down 24hrs. Acute head injury status post fall TECHNIQUE: Multiple axial CT images of the head were obtained without contrast. A dose lowering technique was utilized adhering to the principles of ALARA. CT DOSE: 638.56 mGycm COMPARISON: CT cervical spine of same day FINDINGS: No acute intracranial hemorrhage, midline shift, intracranial mass, hydrocephalus, territorial ischemia or abnormal extra-axial collection. Mild age-related involutional changes. Patchy white matter hypodensities are paige ggestive of chronic microvascular ischemic disease. Cerebral vascular calcifications are also noted. The calvarium is intact. The paranasal sinuses, mastoid air cells, and middle ear cavities are clear. IMPRESSION: No acute intracranial abnormality or calvarial fracture. The above report was generated using voice recognition software. It may contain grammatical, syntax or spelling errors. Electronically signed by: Carlos Lewis M.D. 02/25/2019 12:20 PM ECG Data Attestation: I personally reviewed and interpreted this ECG as follows: Indication: weakness Rate (beats per minute): 61 Rhythm: normal sinus Findings: + other (normal axis); no ST depression, no ST elevation and no acute ischemic change Blood Pressure Blood Pressure Findings: Normal blood pressure MDM Narrative The patient is a pleasant 83-year-old woman with a past medical history of dementia, diastolic heart failure, hypertension, PAD, MARION, hypertension, COPD who presents emergency department after having a mechanical fall yesterday when she let go of her walker and was on the ground for almost 24 hours per hpi. On arrival the patient is in no acute distress, afebrile stable vital signs. On exam patient has mild tenderness of her left lower leg with mild ecchymosis but no bony crepitus. Patient has no for focal neurologic deficits. EKG without overt acute ischemia. Troponin slightly elevated at 0.097 which may be related to demand secondary to her fall. CPK 1000. However, creatinine within normal limits. Chemistry without acidosis. LFTs unremarkable. WBC 12, nonspecific. H/H and platelets within normal limits. Plain films of the left knee and tib-fi b negative for acute fracture. Chest x-ray negative for acute process. CT head, C-spine, chest, abdomen pelvis performed given prolonged down time and unreliable exam given patient's dementia and was negative for acute traumatic findings. Previous findings PAD of aorta and right common iliac are again seen. Considering the patient's mild rhabdomyolysis in the setting of her mechanical fall with prolonged downtime reasonable to admit this elderly patient for further management. Case was discussed with Dr. Cotto, [facility] hospitalist, who will evaluate the patient for admission. Impression & Plan Rhabdomyolysis, Elevated troponin, Contusion of left lower leg Discharge Plan Visit Data *Final* Discharge Date/Time: 02/25/19 13:52 Chief Complaint: Fall Stated Complaint: Fall. Prolonged down time. ED Provider: Blake Castillo Discharge Problem: Rhabdomyolysis, Elevated troponin, Contusion of left lower leg Patient Disposition: Admitted As Inpatient Discharge Instructions Interventions: ED Discharge Assessment Last Done: 02/25/19 13:52 The scribe's documentation has been prepared under my direction and personally reviewed by me in its entirety. I confirm that the note above accurately reflects all work, treatment, procedures, and medical decision making performed by me.
[2019-02-25] MEDS ORDERED: IOVERSOL 100ml IV PRN (12:13)
--- NOTE | 2019-02-25 12:21 | CT Scan Report ---
CT head/brain wo con CLINICAL HISTORY: 83 years-old Female with pain fall,down 24hrs. Acute head injury status post fall TECHNIQUE: Multiple axial CT images of the head were obtained without contrast. A dose lowering tech nique was utilized adhering to the principles of ALARA. CT DOSE: 638.56 mGycm COMPARISON: CT cervical spine of same day FINDINGS: No acute intracranial hemorrhage, midline shift, intracranial mass, hydrocephalus, territorial ischem ia or abnormal extra-axial collection. Mild age-related involutional changes. Patchy white matter hyp odensities are suggestive of chronic microvascular ischemic disease. Cerebral vascular calcifications are also noted. The calvarium is intact. The paranasal sinuses, mastoid air cells, and middle ear cavities are clear . IMPRESSION: No acute intracranial abnormality or calvarial fracture. The above report was generated using voice recognition software. It may contain grammatical, syntax o r spelling errors. Electronically signed by: Carlos Lewis M.D. 02/25/2019 12:20 PM
--- NOTE | 2019-02-25 12:37 | CT Scan Report ---
CT OF THE CHEST WITH IV CONTRAST CLINICAL HISTORY: Chest pain status post trauma COMPARISON STUDY: No previous studies for comparison. TECHNIQUE: Following the IV administration of 94 mL of Optiray-320, CT of the thorax was performed f rom the thoracic inlet to the lung bases. Images are reviewed in the axial, sagittal, and coronal melita jackeline. IV contrast was administered without complication. A dose lowering technique was utilized adher ing to the principles of ALARA. CT DOSE: 1015.59 mGycm FINDINGS: Thyroid: There is an 8 mm left lobe thyroid nodule. Thoracic aorta: There are no findings to indicate acute thoracic aortic injury descending thoracic ao rta measures 35 mm. Pulmonary vasculature: The pulmonary trunk is normal in caliber. There are no central filling defects identified to suggest pulmonary embolus. Note that this examination was not protocoled for the evalu ation of pulmonary emboli. HEART: The heart is borderline enlarged. There are mild coronary artery calcifications. Lungs and pleural spaces: There is no pneumothorax. There are no pleural effusions. There are mild de pendent atelectatic changes. There is no focal pulmonary consolidation. There is an irregular margina carly 6 mm left upper lobe pulmonary nodule (image #[id number]). There is a solid 10 mm left upper lobe pul monary nodule (image #[id number]). Mediastinum: There is no mediastinal lymphadenopathy. Leelee: There is no evidence of pathologic hilar adenopathy Axilla: There is no evidence pathologic axillary lymphadenopathy Upper abdomen: There is bilateral low density adrenal thickening likely secondary to adrenal hyperpl moses. Skeletal structures: No acute fractures are visualized. There are multilevel degenerative changes pre sent within the spine. There is bridging calcification of the anterior longitudinal ligament. There a re advanced arthritic changes present within the shoulders. IMPRESSION: 1. No evidence of acute intrathoracic injury 2. 10 mm and 6 mm left upper lobe pulmonary nodules. A 3 month follow-up CT scan is recommended. Please refer to below summary of Fleischner criteria recommendations for follow-up of incidental CT n odules (Laura Ardon, Guidelines for management of small pulmonary nodules detected on CT scans: A sta tement from the Fleischner Society, Radiology 237: [phone].) SOLID NODULES Solitary nodule size: <6 mm * low risk patients: no follow-up needed * high risk patients: optional CT at 12 months Solitary nodule size: 6-8 mm * low risk patients: follow-up at 6-12 months, then consider further follow-up at 18-24 months * high risk patients: initial follow-up CT at 6-12 months and then at 18-24 months if no change Solitary nodule size: >8 mm * either low or high risk patients - consider follow-up CT at 3 months, and/or CT-PET, and/or biopsy Multiple nodules size: <6 mm * low risk patients: no routine follow-up * high risk patients: optional CT at 12 months Multiple nodules size: 6-8 mm * low risk patients: follow-up at 3-6 months, then consider further follow-up at 18-24 months * high risk patients: follow-up at 3-6 months, then at 18-24 months if no change Multiple nodules size: >8 mm * low risk patients: follow-up at 3-6 months, then consider further follow-up at 18-24 months * high risk patients: follow-up at 3-6 months, then at 18-24 months if no change Note: newly detected indeterminate nodule in persons 35 years of age or older. * low risk patients: minimal or absent history of smoking and/or other known risk factors * high risk patients: history of smoking or of other known risk factors (e.g. first degree relative with lung cancer, or exposure to asbestos, radon, uranium) * if a nodule up to 8 mm is partly solid or is ground glass further follow-up is required after 24 m onths to exclude possible slow growing adenocarcinoma (VARGAS) SUBSOLID NODULES Solitary pure ground-glass nodule * nodule size <6 mm - no CT follow-up required * nodule size >=6 mm - follow-up CT at 6-12 months, then every 2 years until 5 years Solitary part-solid nodule * nodule size <6 mm - no CT follow-up required * nodule size >=6 mm - follow-up CT at 3-6 months. If unchanged, and solid component remains <6 mm, then annual follow-up for 5 years Multiple subsolid nodules * nodule size <6 mm - follow-up CT at 3-6 months, consider further follow-up at 2 and 4 years if sta ble * nodule size >=6 mm - follow-up CT at 3-6 months, subsequent management based on the most suspiciou s nodule(s) Electronically signed by: Gilles Walters M.D. 02/25/2019 12:35 PM
--- NOTE | 2019-02-25 12:37 | CT Scan Report ---
CERVICAL SPINE CT CT DOSE: 362.78 mGycm HISTORY: Neck pain fall,down 24hrs TECHNIQUE: Multiaxial CT images of the cervical spine were performed and reformatted in the sagittal and coronal plane without the use of contrast. A dose lowering technique was utilized adhering to th e principles of ALARA. COMPARISON: None. FINDINGS: No fractures. No subluxation. Prevertebral soft tissues and the C1-C2 interval are intact. No pneumothorax. A few small bilateral thyroid nodules. Posterior fusion defect at C1. Moderate disc space narrowing at C5-C6. Severe disc space narrowing at C3-C4 and C4-C5 with endplate osteophytes. M oderate facet degenerative changes throughout the cervical spine. There is straightening of the cervi daryl spine. IMPRESSION: No fractures within the cervical spine. Electronically signed by: Esvin Cardenas M.D. 02/25/2019 12:35 PM
--- NOTE | 2019-02-25 12:40 | CT Scan Report ---
ABDOMEN AND PELVIS CT WITH IV CONTRAST HISTORY: Acute generalized abdominal pain status post fall pain fall,down 24hrs TECHNIQUE: Multiaxial CT images of the abdomen and pelvis were performed following the use of intrave nous contrast. A dose lowering technique was utilized adhering to the principles of ALARA. COMPARISON STUDY: Chest CT of same day, CTA abdomen and pelvis 12/18/2018 FINDINGS: The lung bases are generally clear. No pneumatosis or pneumoperitoneum. Imaged inferior cardiac chamb ers are upper limits of normal in size. Trace pericardial effusion. Liver is unremarkable. Cholecystectomy. Indeterminate 4 mm hypodense lesion of the inferior spleen, t oo small to characterize. Mild generalized pancreatic atrophy. Enlargement of the bilateral adrenal g lands suggestive of hyperplastic changes, left greater than right. There are a few subcentimeter hypo dense foci about the bilateral kidneys suggestive of probable cysts. No renal or ureteral calculi or obstructive uropathy identified. Ureters and urinary bladder are unremarkable. Uterus appears surgica lly absent. No adnexal mass lesions. Extensive calcified plaque of the abdominal aorta and branch ves sels with bilateral renal arterial stenosis. Complete occlusion of the right common iliac artery with reconstitution of flow about the right external iliac artery redemonstrated. Multifocal areas of kristie noses again noted about the left common iliac artery. Multifocal stenoses about the right common femo ral artery. There is no adenopathy identified. Small hiatal hernia. Mild nonspecific wall thickening about the distal stomach. 7 mm fatty attenuatin g focus of the gastric lumen compatible with lipoma. No bowel obstruction. Mild nonspecific wall thic kening about the rectum. Colonic diverticulosis without acute diverticulitis. Terminal ileum is unrem arkable. Postoperative changes about the anterior abdominal wall. Atrophy of the rectus musculature. Streak artifact from right hip total joint arthroplasty. Grade 1 anterolisthesis L4 on L5, likely deg enerative. No acute fracture or subluxation identified. Lumbar levoscoliosis. IMPRESSION: 1. No evidence of acute posttraumatic solid organ injury or acute fracture. 2. Mild nonspecific wall thickening about the distal stomach and rectum. 3. Colonic diverticulosis without acute diverticulitis. 4. Extensive calcified plaque about the abdominal aorta with multifocal luminal narrowing redemonstra carly. Complete occlusion of the right common iliac artery with reconstitution of flow within the right external iliac artery is again noted. 5. Additional findings as above. Electronically signed by: Carlos Lewis M.D. 02/25/2019 12:39 PM
--- NOTE | 2019-02-25 13:14 | History & Physical Report ---
Date of Service February 25, 2019 Assessment & Plan (1) Status post fall: 2/2 ambulatory dysfunction and tripping, no subsequent fracture seen on initial workup in ER. PT/OT to evaluate for safety to return home. (2) Rhabdomyolysis: Elevated CK 2/2 prolonged immobilization. 1L IVF now and then hold further IVF in setting of chronic diastolic heart failure. Cont good unrestricted PO intake and encouraged oral hydration. Hold diuretics at this ti me. Trend CK. (3) Elevated troponin: Likely 2/2 elevated CK above. Trend, consider TTE. No chest pain at this time and EKG reveals no evidence of active ischemia. (4) Ambulatory dysfunction: PT/OT to assess her safety to return home. Ambulates with a walker at baseline. (5) Epilepsy: chronic, stable, no seizure activity since age 47. Cont AEDs. (6) Chronic diastolic heart failure: euvolemic on exam. Holding diuretics as above. (7) Abnormal CT of the abdomen: Nonspecific gastric thickening and rectal wall changes. Appreciate GI recommendations for further workup of this if indicated. (8) HTN (hypertension): stable, cont home meds. (9) Dementia: Present, some hallucinations per daughter this morning, which is expected. May become more disoriented as hospitalization continues. Cont good day/night cycles and early ambulation. Minimize sedating medications or narcotics. Cont Namenda and Aricept. (10) Pulmonary nodule: Repeat CT scan in 3 months. (11) DVT prophylaxis: Lovenox Full Code confirmed on admission with daughter present for the conversation. Dispo-to floor Radha Cotto DO [facility] Hospitalist History of Present Illness Chief Complaint: Fall at home with prolonged immobilization Primary Care Provider: Bettie Wyman DO 83-year-old female with dementia who ambulates with a walker at baseline tripped and fell at home while doing laundry. She remembers the fall and denies hitting her head but was unable to get up and seek help via phone or other method. She subsequently laid on the floor for approximately 22 hours before being found by nurses aide. She reports no pain at this time, and daughter is at the bedside and states that she has a small red chantel on her back. This was evaluated and there was no tenderness to palpation or open sore. She denies any recent infection. She denies any chest pain, shortness of breath, abdominal pain. She reports increased frequency of urination with her diuretics, but denies any urinary tract infection symptoms such as dysuria, incomplete voiding, flank pain or other fevers or chills or other symptoms. Daughter is present at the bedside and confirms medications and the patient's story. Daughter separately told me she feels like her mother's mental status is somewhat off from her baseline as she has been asking why her late was not helping her get off the floor last night. Allergies Allergy/AdvReac Type Severity Reaction Status Date / Time hydromorphone Allergy Severe SHORTNESS Verified 02/16/19 10:27 OF BREATH Home Medications Home Medications Medication Instructions Recorded Confirmed Type Breo Ellipta 1 inh INHALATION HS 09/22/18 02/25/19 History Centrum 1 tab PO QAM 09/22/18 02/25/19 History Ocuvite with Lutein 1 tab PO QAM 09/22/18 02/25/19 History aspirin [Aspir-81] 81 mg PO HS 09/22/18 02/25/19 History biotin 1 mg PO PM 09/22/18 02/25/19 History carbamazepine [Tegretol] 600 mg PO HS 09/22/18 02/25/19 History cholecalciferol (vitamin D3) 1,000 unit PO PM 09/22/18 02/25/19 History [Vitamin D3] coQ10 (ubiquinol) 200 mg PO QAM 09/22/18 02/25/19 History cyanocobalamin (vitamin B-12) 2,000 mcg PO QAM 09/22/18 02/25/19 History [Vitamin B-12] gabapentin 100 mg PO BID 09/22/18 02/25/19 History losartan 100 mg PO QAM 09/22/18 02/25/19 History nitroglycerin [Nitrostat] 0.4 mg SUBLINGUAL DIRECTED PRN 09/22/18 02/25/19 History rosuvastatin [Crestor] 5 mg PO QPM 09/22/18 02/25/19 History acetaminophen [Tylenol] 650 mg PO HS 01/26/19 02/25/19 History donepezil 5 mg PO QAM 01/26/19 02/25/19 History furosemide 80 mg PO BID 01/26/19 02/25/19 History sertraline 150 mg PO QAM 01/26/19 02/25/19 History carvedilol 12.5 mg tablet 12.5 mg PO BID 02/16/19 02/25/19 History lorazepam 0.5 mg PO HS PRN 02/25/19 02/25/19 History Past Med/Surg History Medical History COPD (chronic obstructive pulmonary disease) (Chronic) Chronic diastolic heart failure Chronic pulmonary hypertension Depression Epilepsy Macular degeneration Obstructive sleep apnea Rheumatoid arthritis Arthritis (Chronic) COPD (chronic obstructive pulmonary disease) (Chronic) Depression (Chronic) HTN (hypertension) (Chronic) H/O: hysterectomy Surgical History Status post right knee replacement (Chronic) Status post Achilles tendon repair Status post appendectomy Status post cholecystectomy Status post hysterectomy History of S/P hip replacement Family History Father Hypertension Mother Breast cancer Other Family history non-contributory Social History Preferred Language: Dominican Communication Ability: Effective 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 Beliefs That Will Affect Care: None marital status: Current Living Situation: Alone current occupational status: retired Other Information That Helps Us Care for You: No Feels Safe at Home: Yes Safety Concerns: Feels Safe At This Time Smoking Status: Former smoker Cigarettes Per Day: 40 Second Hand Exposure: No Tobacco Cessation Education Requested by Patient: No Hx Alcohol Use: Yes Alcohol type: wine Hx Substance Use: No Review of Systems Review of Systems: All systems reviewed & are unremarkable except as noted in HPI & below Physical Exam Physical Exam: CONSTITUTIONAL: WNWD, vitals as above, generally well- appearing EYES: EOMI bilaterally, PERRL, normal conjunctivae, no scleral icterus ENT: MMM, lips are chapped RESPIRATORY: clear to auscultation bilaterally, no crackles, rales or wheezes, normal respiratory effort CARDIOVASCULAR: regular rate and rhythm, S1 and 2 heard without murmurs, gallops or rubs, no JVD, no peripheral edema, no carotid bruits, +abdominal bruit on L GASTROINTESTINAL: normal bowel sounds, soft, nontender, nondistended MUSCULOSKELETAL: strength 5/5 throughout, head is normocephalic and atraumatic SKIN: warm and dry NEUROLOGIC: No facial palsy, no dysarthria. CN 2-12 grossly intact, no sensory deficit, normal cognition, normal speech, no tremor, no gross focal deficits. PSYCHIATRIC: alert cooperative Results & Data Vital Signs (Past 12 Hours) Vital Signs Temp Pulse Pulse Resp BP BP Pulse Ox 02/25/19 11:22 64 19 148/56 H 96 02/25/19 08:45 36.8 C 75 18 132/76 96 Laboratory Results Short CBC 02/25/19 Range/Units 09:13 WBC 12.18 H (4.8-10.8) K/uL Hgb 14.0 (12.0-16.0) g/dL Hct 41.8 (37-47) % Plt Count 228 (130-400) K/uL BMP 02/25/19 09:13 Sodium 142 Potassium 3.1 L Chloride 105 Carbon Dioxide 29 BUN 18 Creatinine 0.76 Glucose 101 H Calcium 9.4 Cardiac Enzymes 02/25/19 Range/Units 09:13 Total Creatine Kinase 1028 H (26-192) U/L Troponin I 0.097 H* (0-0.045) ng/ml Liver Function 02/25/19 Range/Units 09:13 Total Bilirubin 0.6 (0.2-1) mg/dl Direct Bilirubin < 0.1 (0-0.2) mg/dl AST 48 H (15-37) U/L ALT 23 (12-78) U/L Alkaline Phosphatase 134 H (45-117) U/L Albumin 3.8 (3.4-5.0) gm/dl Medications Administered Current Inpatient Medications Ioversol (Optiray 320 100ml) 94 ml IV ONCE PRN PRN Reason: Interaction Checking Stop: 03/01/19 12:12 Last Admin: 02/25/19 12:14 Dose: 94 ml Documented by: Code Status & VTE Plan Code Status Full VTE Prophylaxis Plan VTE Prophylaxis will be ordered: Yes (1) Rhabdomyolysis Rhabdomyolysis type: non-traumatic Qualified Code(s): M62.82 - Rhabdomyolysis
[2019-02-25] MEDS ORDERED: NITROGLYCERIN SL 0.4 MG/TAB TAB SL PRN (14:33)
[2019-02-25] MEDS ORDERED: POLYETHYLENE (MIRALAX) 17 GM PACK PO PRN (14:41)
[2019-02-25] MEDS ORDERED: ONDANSETRON INJ 2 MG/ML 2 ML VIAL IV PRN (14:41)
[2019-02-25] MEDS ORDERED: SODIUM CHLORIDE 0.9% 1000ML 1,000 ML IV SCH (14:41)
[2019-02-25] MEDS ORDERED: PATIENT'S HEIGHT AND/OR WEIGHT NEEDED SCH (15:00)
[2019-02-25] MEDS ORDERED: POTASSIUM CHLORIDE 20 MEQ TABCR PO SCH (15:45)
[2019-02-25] MEDS: SERTRALINE HCL 50 MG TABLET PO SCH (16:16)
[2019-02-25] MEDS: GABAPENTIN 100 MG CAP PO SCH (20:53)
[2019-02-25] MEDS: ASPIRIN 81 MG ECTAB PO SCH (20:53)
[2019-02-25] MEDS: carBAMazepine 200 MG TABLET PO SCH (20:53)
[2019-02-25] MEDS: CARVEDILOL 12.5 MG TAB PO SCH (20:54)
[2019-02-25] MEDS: CHOLECALCIFEROL 1,000 UNITS TAB PO SCH (20:54)
[2019-02-25] MEDS ORDERED: POTASSIUM CHLORIDE 20 MEQ TABCR PO ONE (21:00)
[2019-02-26 06:17] LABS: Hematocrit (blood only) 35.7 % (37-47); Hemoglobin 11.3 g/dL (12.0-16.0); Mean Corpuscular Hgb Conc 31.7 g/dL (32-36); Mean Corpuscular Volume 90.4 fL (80-100); Mean Platelet Volume 9.3 fL (7.4-10.4); Platelet Count 183 K/uL (130-400); RDW Coefficient of Variation 17.3 % (11.5-14.5); RDW Standard Deviation 57.5 fL (36.4-46.3); Red Blood Count 3.95 M/uL (4.2-5.4); White Blood Count 7.99 K/uL (4.8-10.8)
[2019-02-26 06:54] LABS: BUN Creatinine Ratio 23.6 (10-20); Calcium 8.2 mg/dl (8.5-10.1); Creatinine Clr Calc Pharmacy 64.4 ml/min; Est GFR (African American) 98.1; Est GFR (Non-African American) 84.6; Potassium 3.3 mmol/L (3.5-5.1)
[2019-02-26] MEDS: DONEPEZIL HCL 5 MG TAB PO SCH (09:07)
[2019-02-26] MEDS: GABAPENTIN 100 MG CAP PO SCH ×2 (09:08→20:57)
[2019-02-26] MEDS: ACETAMINOPHEN 325 MG TAB PO PRN (09:08)
[2019-02-26] MEDS: SERTRALINE HCL 50 MG TABLET PO SCH (09:09)
[2019-02-26] MEDS: CARVEDILOL 12.5 MG TAB PO SCH ×2 (09:10→20:57)
[2019-02-26] MEDS: ENOXAPARIN INJ 40 MG/0.4 ML SYR SQ SCH (09:10)
--- NOTE | 2019-02-26 11:36 | Gastrointestinal Consultation ---
Date of Consultation February 26, 2019 Assessment & Plan (1) Abnormal CT of the abdomen: Patient has very mild epigastric tenderness on physical exam, but no complaints of abdominal pain without palpation. She has had diarrhea over the past month, but with BMs only 1-2 times daily and this has been since she started eating a lot more fresh fruit at home. I am not sure I would put her through any endoscopic procedures at this time, and she would prefer not to have any endoscopic intervention. Recommend a once daily fiber supplement and trial of a small amount of Imodium, if needed additionally. If diarrhea does not improve, or if epigastric discomfort progresses, would consider further work up. Supervising Physician Co-Signing Physician Notes I have seen and examined the patient with Bainca Almendarez PA-C whose note reflects our findings and plan. Patient admitted s/p fall and period of time on the ground resulting in rhabdo. On trauma CT found to have mild gastric and rectal thickening. Some loose stool over the past few weeks. Mild epig tenderness since the fall. WOuld defer any endoscopic evaluation for several weeks as an outpatient. Exam is benign. History of Present Illness Reason for Consultation: Gastric/rectal thickening on imaging Requesting Physician: Radha Cotto DO Attending Physician: Radha Cotto DO History of Present Illness 83 year old female with a hx of HTN, diastolic heart failure, PAD, COPD, epilepsy, and dementia, with others listed below, admitted following a fall at home, where she was down approximately 22 hrs before being found. She has evidence of rhabdomyolosis and an elevated troponin. We have been asked to see her for recommendations, as imaging showed thickening of the gastric wall and the rectum. She denies any abdominal pain, n/v, heartburn. Does not take any PPI or H2 carter at home. Bowels moving 1-2 times daily with liquid stool for the past month, but she feels this is secondary to eating a lot of fresh fruit at home. She states that her bowel pattern has not changed in the recent past. Denies any BRB or melena. Labs as below. She has not ever had an EGD or colonoscopy in the past. No known family hx of GI issues. Allergies Allergy/AdvReac Type Severity Reaction Status Date / Time hydromorphone Allergy Severe SHORTNESS Verified 02/16/19 10:27 OF BREATH Home Medications Home Medications Medication Instructions Recorded Confirmed Type Breo Ellipta 1 inh INHALATION HS 09/22/18 02/25/19 History Centrum 1 tab PO QAM 09/22/18 02/25/19 History Ocuvite with Lutein 1 tab PO QAM 09/22/18 02/25/19 History aspirin [Aspir-81] 81 mg PO HS 09/22/18 02/25/19 History biotin 1 mg PO PM 09/22/18 02/25/19 History carbamazepine [Tegretol] 600 mg PO HS 09/22/18 02/25/19 History cholecalciferol (vitamin D3) 1,000 unit PO PM 09/22/18 02/25/19 History [Vitamin D3] coQ10 (ubiquinol) 200 mg PO QAM 09/22/18 02/25/19 History cyanocobalamin (vitamin B-12) 2,000 mcg PO QAM 09/22/18 02/25/19 History [Vitamin B-12] gabapentin 100 mg PO BID 09/22/18 02/25/19 History losartan 100 mg PO QAM 09/22/18 02/25/19 History nitroglycerin [Nitrostat] 0.4 mg SUBLINGUAL DIRECTED PRN 09/22/18 02/25/19 History rosuvastatin [Crestor] 5 mg PO QPM 09/22/18 02/25/19 History acetaminophen [Tylenol] 650 mg PO HS 01/26/19 02/25/19 History donepezil 5 mg PO QAM 01/26/19 02/25/19 History furosemide 80 mg PO BID 01/26/19 02/25/19 History sertraline 150 mg PO QAM 01/26/19 02/25/19 History carvedilol 12.5 mg tablet 12.5 mg PO BID 02/16/19 02/25/19 History lorazepam 0.5 mg PO HS PRN 02/25/19 02/25/19 History Patient History Medical History COPD (chronic obstructive pulmonary disease) (Chronic) Chronic diastolic heart failure Chronic pulmonary hypertension Depression Epilepsy Macular degeneration Obstructive sleep apnea Rheumatoid arthritis Arthritis (Chronic) COPD (chronic obstructive pulmonary disease) (Chronic) Depression (Chronic) HTN (hypertension) (Chronic) H/O: hysterectomy Surgical History Status post right knee replacement (Chronic) Status post Achilles tendon repair Status post appendectomy Status post cholecystectomy Status post hysterectomy History of S/P hip replacement Family History Father Hypertension Mother Breast cancer Other Family history non-contributory Social History Preferred Language: Indonesian Communication Ability: Effective Histotechnologist Required: No Beliefs That Will Affect Care: None marital status: Current Living Situation: Alone current occupational status: retired Other Information That Helps Us Care for You: No Feels Safe at Home: Yes Safety Concerns: Feels Safe At This Time Smoking Status: Former smoker Cigarettes Per Day: 40 Second Hand Exposure: No Tobacco Cessation Education Requested by Patient: No Hx Alcohol Use: Yes Alcohol type: wine Hx Substance Use: No Review of Systems Constitutional: no fever, no chills, no fatigue and no weight loss Eyes: no eye pain and no worsening vision Ear, Nose, Mouth, Throat: no ear pain, no hearing loss, no nasal congestion and no sore throat Respiratory: + dyspnea and + dyspnea on exertion; no cough, no chest congestion and no wheezing Cardiovascular: no chest pain Gastrointestinal: as per Subjective / HPI Genitourinary: no dysuria and no urinary incontinence Musculoskeletal: + back pain Integumentary: no rash and no pruritus Neurologic: no tingling, no numbness and no dizziness Psychiatric: no suicidal ideation and no confusion Endocrine: no cold intolerance and no heat intolerance Hematologic / Lymphatic: no easy bleeding and no easy bruising Allergy / Immunological: no problem reported Physical Exam Constitutional: no acute distress Eyes: + anicteric sclerae ENMT: external ear and nose normal, oropharynx normal Neck: normal visual inspection Respiratory: normal respiratory effort, lungs clear to auscultation Cardiovascular: Rate/Rhythm: regular rate and regular rhythm Gastrointestinal (Abdomen): Inspection/Auscultation: normal bowel sounds; abdomen not distended Percussion/Palpation: + abdomen tender (mild epigastric tenderness) and abdomen soft Musculoskeletal: Head/Neck/Chest: normocephalic and head atraumatic Skin: no rashes, warm and dry Neurologic: moves all extremities; no focal motor deficits Psychiatric: Orientation: alert and oriented x 3 Results & Data Vital Signs (Past 12 Hours) Vital Signs Temp Pulse Resp BP BP Pulse Ox 02/26/19 07:46 36.6 C 77 18 137/67 100 02/26/19 04:46 37.1 C 62 18 110/58 L 97 Laboratory Results - last 24 hr 02/25/19 02/25/19 02/26/19 14:58 20:30 05:40 WBC 7.99 RBC 3.95 L Hgb 11.3 L Hct 35.7 L MCV 90.4 MCH 28.6 MCHC 31.7 L RDW Std Deviation 57.5 H RDW Coeff of Marco 17.3 H Plt Count 183 MPV 9.3 Sodium Potassium Chloride Carbon Dioxide Anion Gap BUN Creatinine Est Cr Clr Drug Dosing Est GFR ( Amer) Est GFR (Non-Af Amer) BUN/Creatinine Ratio Glucose Calcium Total Creatine Kinase Troponin I 0.097 H* 0.075 H* 02/26/19 05:40 WBC RBC Hgb Hct MCV MCH MCHC RDW Std Deviation RDW Coeff of Marco Plt Count MPV Sodium 145 Potassium 3.3 L Chloride 111 H Carbon Dioxide 29 Anion Gap 5.0 BUN 14 Creatinine 0.58 L Est Cr Clr Drug Dosing 64.4 Est GFR ( Amer) 98.1 Est GFR (Non-Af Amer) 84.6 BUN/Creatinine Ratio 23.6 H Glucose 83 Calcium 8.2 L Total Creatine Kinase 763 H Troponin I CTAP: IMPRESSION: 1. No evidence of acute posttraumatic solid organ injury or acute fracture. 2. Mild nonspecific wall thickening about the distal stomach and rectum. 3. Colonic diverticulosis without acute diverticulitis. 4. Extensive calcified plaque about the abdominal aorta with multifocal luminal narrowing redemonstrated. Complete occlusion of the right common iliac artery with reconstitution of flow within the right external iliac artery is again noted. 5. Additional findings as above.
--- NOTE | 2019-02-26 12:10 | Hospitalist Progress Note ---
Date of Service February 26, 2019 Assessment & Plan (1) Status post fall: 2/2 ambulatory dysfunction and tripping, no subsequent fracture seen on initial workup in ER. PT/OT to evaluate for safety to return home. (2) Rhabdomyolysis: Elevated CK 2/2 prolonged immobilization. Fluid given carefully with 1 L yesterday and subsequent improvement in CK to 730. Will give an additional 1 L now with cautious fluid bolusing in the setting of chronic diastolic heart failure. Cont good unrestricted PO intake and encouraged oral hydration. Continue to hold diuretics at this time. Trend CK. (3) Elevated troponin: Likely 2/2 elevated CK above. Trend was flat with no elevation highly suggestive of rhabdomyolysis as a cause. No echocardiogram is indicated at this time. Also of note, she continues to have no chest pain at this time and EKG reveals no evidence of active ischemia. (4) Ambulatory dysfunction: PT/OT to assess her safety to return home. Ambulates with a walker at baseline. (5) Epilepsy: chronic, stable, no seizure activity since age 47. Cont AEDs. (6) Chronic diastolic heart failure: euvolemic on exam. Holding diuretics as above. (7) Abnormal CT of the abdomen: Nonspecific gastric thickening and rectal wall changes. Per gastroenterology team, they would not work this up while the patient is hospitalized with rhabdomyolysis. Outpatient evaluation can be further considered when she is feeling better if her epigastric tenderness progresses or there is further concern regarding her diarrhea, which at this point is not impressive. (8) HTN (hypertension): slightly hypotensive. Hold Losartan. (9) Dementia: Mental status appears improved. Cont Namenda and Aricept. (10) Pulmonary nodule: Repeat CT scan in 3 months. (11) DVT prophylaxis: Lovenox Full Code confirmed on admission with daughter present for the conversation. Dispo-to floor Radha Cotto DO [facility] Hospitalist Subjective She is feeling much better today and is sitting up in her chair eating mentating at baseline. She denies any issues with muscle aches but does report one area in her back that is painful consistent with a golf ball size lump where she was laying on her prolonged period of time. Erythema is present in this area but no open wound and the area is tender to palpation. She otherwise denies any fevers, chills, chest pain, shortness of breath and is tolerating p.o. with ease. She is yet to see therapy today. Review of Systems Review of Systems: All systems reviewed & are unremarkable except as noted in HPI & below Physical Exam Physical Exam: CONSTITUTIONAL: WNWD, vitals as above, generally well- appearing, sitting in bedside chair and eating EYES: normal conjunctivae, no scleral icterus ENT: MMM RESPIRATORY: clear to auscultation bilaterally, no crackles, rales or wheezes, normal respiratory effort CARDIOVASCULAR: regular rate and rhythm, 2/6 CORNELL heard, no JVD, no peripheral edema GASTROINTESTINAL: normal bowel sounds, soft, nontender, nondistended MUSCULOSKELETAL: strength 5/5 throughout, head is normocephalic and atraumatic, small erythematous lump that is golf-ball sized over spinous process in upper thoracic area, no open wound present and this is TTP. SKIN: warm and dry and area on back as above. Small L heel wound NEUROLOGIC: conversational, oriented, no gross focal deficits. PSYCHIATRIC: alert cooperative Results & Data Vital Signs (Past 12 Hours) Vital Signs Temp Pulse Resp BP BP Pulse Ox 02/26/19 11:46 36.9 C 59 L 16 93/44 L 97 02/26/19 07:46 36.6 C 77 18 137/67 100 02/26/19 04:46 37.1 C 62 18 110/58 L 97 Laboratory Results Short CBC 02/26/19 Range/Units 05:40 WBC 7.99 (4.8-10.8) K/uL Hgb 11.3 L (12.0-16.0) g/dL Hct 35.7 L (37-47) % Plt Count 183 (130-400) K/uL BMP 02/26/19 05:40 Sodium 145 Potassium 3.3 L Chloride 111 H Carbon Dioxide 29 BUN 14 Creatinine 0.58 L Glucose 83 Calcium 8.2 L Cardiac Enzymes 02/25/19 02/26/19 Range/Units 20:30 05:40 Total Creatine Kinase 763 H (26-192) U/L Troponin I 0.075 H* (0-0.045) ng/ml Medications Administered Current Inpatient Medications Acetaminophen (Tylenol) 650 mg PO Q4H PRN PRN Reason: Pain or Fever Stop: 03/27/19 14:40 Last Admin: 02/26/19 09:08 Dose: 650 mg Documented by: Aspirin (Ecotrin Ectab) 81 mg PO HS [facility] Stop: 03/27/19 20:59 Last Admin: 02/25/19 20:53 Dose: 81 mg Documented by: Carbamazepine (Tegretol) 600 mg PO HS [facility] Stop: 03/27/19 20:59 Last Admin: 02/25/19 20:53 Dose: 600 mg Documented by: Carvedilol (Coreg) 12.5 mg PO BID [facility] Stop: 03/27/19 20:59 Last Admin: 02/26/19 09:10 Dose: 12.5 mg Documented by: Donepezil HCl (Aricept) 5 mg PO QAM [facility] Stop: 03/28/19 08:59 Last Admin: 02/26/19 09:07 Dose: 5 mg Documented by: Enoxaparin Sodium (Lovenox) 40 mg SQ QAM [facility] Stop: 03/28/19 08:59 Last Admin: 02/26/19 09:10 Dose: 40 mg Documented by: Fluticasone/Vilanterol (Breo Ellipta) 1 puffs [facility] Stop: 03/28/19 20:59 Gabapentin (Neurontin) 100 mg PO BID [facility] Stop: 03/27/19 20:59 Last Admin: 02/26/19 09:08 Dose: 100 mg Documented by: Sodium Chloride (Nss) 500 mls @ 125 mls/hr IV .Q4H [facility] Stop: 02/26/19 20:44 Last Admin: 02/26/19 13:05 Dose: 125 mls/hr Documented by: Ioversol (Optiray 320 100ml) 94 ml IV ONCE PRN PRN Reason: Interaction Checking Stop: 03/01/19 12:12 Last Admin: 02/25/19 12:14 Dose: 94 ml Documented by: Nitroglycerin (Nitrostat) 0.4 mg SL UD PRN PRN Reason: Chest Pain Stop: 03/27/19 14:32 Ondansetron HCl (Zofran) 4 mg IV Q6H PRN PRN Reason: Nausea Stop: 03/27/19 14:40 Polyethylene Glycol (Miralax Powder Packet) 17 gm PO DAILY PRN PRN Reason: Constipation Stop: 03/27/19 14:40 Sertraline HCl (Zoloft) 150 mg PO QAM [facility] Stop: 03/27/19 14:34 Last Admin: 02/26/19 09:09 Dose: 150 mg Documented by: Vitamin D (Vitamin D3) 1,000 units PO QPM [facility] Stop: 03/27/19 20:59 Last Admin: 02/25/19 20:54 Dose: 1,000 units Documented by: (1) Rhabdomyolysis Rhabdomyolysis type: non-traumatic Qualified Code(s): M62.82 - Rhabdomyolysis
[2019-02-26] MEDS: SODIUM CHLORIDE 0.9% 500 ML IV SCH ×2 (13:05→20:56)
[2019-02-26] MEDS: ASPIRIN 81 MG ECTAB PO SCH (20:57)
[2019-02-26] MEDS: carBAMazepine 200 MG TABLET PO SCH (20:57)
[2019-02-26] MEDS: CHOLECALCIFEROL 1,000 UNITS TAB PO SCH (20:57)
[2019-02-26] MEDS ORDERED: FLUTICASONE INH SCH (21:00)
[2019-02-26] MEDS ORDERED: VILANTEROL INH SCH (21:00)
[2019-02-27] MEDS: ACETAMINOPHEN 325 MG TAB PO PRN (00:11)
[2019-02-27 05:57] LABS: Hematocrit (blood only) 31.1 % (37-47); Hemoglobin 9.8 g/dL (12.0-16.0); Mean Corpuscular Hgb Conc 31.5 g/dL (32-36); Mean Corpuscular Volume 91.2 fL (80-100); Mean Platelet Volume 9.2 fL (7.4-10.4); Platelet Count 160 K/uL (130-400); RDW Standard Deviation 57.1 fL (36.4-46.3); Red Blood Count 3.41 M/uL (4.2-5.4); White Blood Count 5.64 K/uL (4.8-10.8)
[2019-02-27 06:38] LABS: BUN Creatinine Ratio 35.5 (10-20); Calcium 8.1 mg/dl (8.5-10.1); Est GFR (Non-African American) 88.9; Potassium 3.7 mmol/L (3.5-5.1)
[2019-02-27] MEDS: DONEPEZIL HCL 5 MG TAB PO SCH (08:15)
[2019-02-27] MEDS: SERTRALINE HCL 50 MG TABLET PO SCH (08:15)
[2019-02-27] MEDS: GABAPENTIN 100 MG CAP PO SCH (08:15)
[2019-02-27] MEDS: CARVEDILOL 12.5 MG TAB PO SCH (08:15)
[2019-02-27] MEDS: ENOXAPARIN INJ 40 MG/0.4 ML SYR SQ SCH (08:16)
--- NOTE | 2019-02-27 12:01 | Hospitalist Progress Note ---
Date of Service February 27, 2019 Assessment & Plan (1) Ambulatory dysfunction: (2) Status post fall: 2/2 ambulatory dysfunction and tripping Imaging showed no fracture seen Continue PT/OT Fall precaution (3) Rhabdomyolysis: Elevated CK 2/2 prolonged immobilization due to mechanical fall CK on admission 1028 Received IV Fluid, then CK improved to 373 Monitor BMP (4) Elevated troponin: Likely 2/2 elevated due to elevate CK EKG showed no ischemia changes Denies any chest pain (5) Epilepsy: chronic, stable, no seizure activity since age 47. Cont AEDs. (6) Chronic diastolic heart failure: euvolemic on exam. Will resume diuretic on discharge (7) Abnormal CT of the abdomen: Nonspecific gastric thickening and rectal wall changes. Per gastroenterology team, they would not work this up while the patient is hospitalized with rhabdomyolysis. Outpatient evaluation can be further considered when she is feeling better if her epigastric tenderness progresses or there is further concern regarding her diarrhea, which at this point is not impressive. (8) HTN (hypertension): BP stable Will resume Losartan. (9) Dementia: Mental status appears improved. Cont Namenda and Aricept. (10) Pulmonary nodule: CT chest showed 10 mm and 6 mm left upper lobe pulmonary nodules. Repeat CT scan in 3 months. (11) DVT prophylaxis: Lovenox CODE STATUS Full Code Disposition Discharge to rehab today Subjective Pt was seen and examined Lying in bed with no distress Pt said that she feels a little weak Denies any chest pain, palpitation, dizziness and SOB Physical Exam Physical Exam: General- No acute distress Head- atraumatic Eyes- PERRL, EOMI, ENT- oropharynx clear Neck- supple, no JVD Lungs- clear to auscultation Heart- regular rhythm, 2/6 CORNELL heard Abdomen- normal bowel sounds, soft, nontender Extremities- no calf tenderness Neuro- alert, oriented x 3; PERRL, EOMI; no facial palsy; no dysarthria Skin- warm & dry Results & Data Vital Signs (Past 12 Hours) Vital Signs Temp Pulse Pulse Resp BP BP Pulse Ox 02/27/19 11:37 37.0 C 60 20 150/66 H 97 02/27/19 07:39 36.9 C 58 L 20 105/49 L 98 02/27/19 04:00 36.5 C 59 L 20 115/65 97 02/27/19 01:19 64 02/27/19 01:06 Pulse Ox 02/27/19 11:37 02/27/19 07:39 02/27/19 04:00 02/27/19 01:19 02/27/19 01:06 98 (1) Rhabdomyolysis Rhabdomyolysis type: non-traumatic Qualified Code(s): M62.82 - Rhabdomyolysis
--- NOTE | 2019-02-27 12:44 | Discharge Summary ---
Date of Service February 27, 2019 Admission HPI Per Admitting Provider 83-year-old female with dementia who ambulates with a walker at baseline tripped and fell at home while doing laundry. She remembers the fall and denies hitting her head but was unable to get up and seek help via phone or other method. She subsequently laid on the floor for approximately 22 hours before being found by nurses aide. She reports no pain at this time, and daughter is at the bedside and states that she has a small red chantel on her back. This was evaluated and there was no tenderness to palpation or open sore. She denies any recent infection. She denies any chest pain, shortness of breath, abdominal pain. She reports increased frequency of urination with her diuretics, but denies any urinary tract infection symptoms such as dysuria, incomplete voiding, flank pain or other fevers or chills or other symptoms. Daughter is present at the bedside and confirms medications and the patient's story. Daughter separately told me she feels like her mother's mental status is somewhat off from her baseline as she has been asking why her late was not helping her get off the floor last night. Admission Exam Per Admitting Provider CONSTITUTIONAL: WNWD, vitals as above, generally well-appearing EYES: EOMI bilaterally, PERRL, normal conjunctivae, no scleral icterus ENT: MMM, lips are chapped RESPIRATORY: clear to auscultation bilaterally, no crackles, rales or wheezes, normal respiratory effort CARDIOVASCULAR: regular rate and rhythm, S1 and 2 heard without murmurs, gallops or rubs, no JVD, no peripheral edema, no carotid bruits, +abdominal bruit on L GASTROINTESTINAL: normal bowel sounds, soft, nontender, nondistended MUSCULOSKELETAL: strength 5/5 throughout, head is normocephalic and atraumatic SKIN: warm and dry NEUROLOGIC: No facial palsy, no dysarthria. CN 2-12 grossly intact, no sensory deficit, normal cognition, normal speech, no tremor, no gross focal deficits. PSYCHIATRIC: alert cooperative Principal Diagnosis Ambulatory dysfunction Status post fall Rhabdomyolysis Elevated troponin Epilepsy Lung Nodule Chronic diastolic heart failure Dementia Discharge Exam General- No acute distress Head- atraumatic Eyes- PERRL, EOMI, ENT- oropharynx clear Neck- supple, no JVD Lungs- clear to auscultation Heart- regular rhythm, 2/6 CORNELL heard Abdomen- normal bowel sounds, soft, nontender Extremities- no calf tenderness Neuro- alert, oriented x 3; PERRL, EOMI; no facial palsy; no dysarthria Skin- warm & dry Discharge Data Allergies Allergy/AdvReac Type Severity Reaction Status Date / Time hydromorphone Allergy Severe SHORTNESS Verified 02/16/19 10:27 OF BREATH Consultations 02/25/19 11:40 ED Decision to Admit Stat 02/25/19 14:41 Consult Case Management - Discharge Planning Routine 02/25/19 18:50 Consult Gastroenterology Routine Ordered Studies 02/25/19 09:16 CT abd pelvis IV con only Stat CT cervical spine wo con Stat CT chest w con Stat CT head/brain wo con Stat ABDOMEN AND PELVIS CT WITH IV CONTRAST HISTORY: Acute generalized abdominal pain status post fall pain fall,down 24hrs TECHNIQUE: Multiaxial CT images of the abdomen and pelvis were performed following the use of intravenous contrast. A dose lowering technique was utilized adhering to the principles of ALARA. COMPARISON STUDY: Chest CT of same day, CTA abdomen and pelvis 12/18/2018 FINDINGS: The lung bases are generally clear. No pneumatosis or pneumoperitoneum. Imaged inferior cardiac chambers are upper limits of normal in size. Trace pericardial effusion. Liver is unremarkable. Cholecystectomy. Indeterminate 4 mm hypodense lesion of the inferior spleen, too small to characterize. Mild generalized pancreatic atrophy. Enlargement of the bilateral adrenal glands suggestive of hyperplastic changes, left greater than right. There are a few subcentimeter hypodense foci a bout the bilateral kidneys suggestive of probable cysts. No renal or ureteral calculi or obstructive uropathy identified. Ureters and urinary bladder are unremarkable. Uterus appears surgically absent. No adnexal mass lesions. Extensive calcified plaque of the abdominal aorta and branch vessels with bilateral renal arterial stenosis. Complete occlusion of the right common iliac artery with reconstitution of flow about the right external iliac artery redemonstrated. Multifocal areas of stenoses again noted about the left common iliac artery. Multifocal stenoses about the right common femoral artery. There is no adenopathy identified. Small hiatal hernia. Mild nonspecific wall thickening about the distal stomach. 7 mm fatty attenuating focus of the gastric lumen compatible with lipoma. No b owel obstruction. Mild nonspecific wall thickening about the rectum. Colonic diverticulosis without acute diverticulitis. Terminal ileum is unremarkable. Postoperative changes about the anterior abdominal wall. Atrophy of the rectus musculature. Streak artifact from right hip total joint arthroplasty. Grade 1 anterolisthesis L4 on L5, likely degenerative. No acute fracture or subluxation identified. Lumbar levoscoliosis. IMPRESSION: 1. No evidence of acute posttraumatic solid organ injury or acute fracture. 2. Mild nonspecific wall thickening about the distal stomach and rectum. 3. Colonic diverticulosis without acute diverticulitis. 4. Extensive calcified plaque about the abdominal aorta with multifocal luminal narrowing redemonstrated. Complete occlusion of the right common iliac artery with reconstitution of flow within the right external iliac artery is again noted. 5. Additional findings as above. Electronically signed by: Carlos Lewis M.D. 02/25/2019 12:39 PM Dictated: 02/25/19 1229 Transcribed: 02/25/[address] DOSE: 362.78 mGycm HISTORY: Neck pain fall,down 24hrs TECHNIQUE: Multiaxial CT images of the cervical spine were performed and re formatted in the sagittal and coronal plane without the use of contrast. A dose lowering technique was utilized adhering to the principles of ALARA. COMPARISON: None. FINDINGS: No fractures. No subluxation. Prevertebral soft tissues and the C1-C2 interval are intact. No pneumothorax. A few small bilateral thyroid nodules. Posterior fusion defect at C1. Moderate disc space narrowing at C5-C6. Severe disc space narrowing at C3-C4 and C4-C5 with endplate osteophytes. Moderate facet degenerative changes throughout the cervical spine. There is straightening of the cervical spine. IMPRESSION: No fractures within the cervical spine. Electronically signed by: Esvin Cardenas M.D. 02/25/2019 12:35 PM Dictated: 02/25/19 1230 Transcribed: 02/25/[address] OF THE CHEST WITH IV CONTRAST CLINICAL HISTORY: Chest pain status post trauma COMPARISON STUDY: No previous studies for comparison. TECHNIQUE: Following the IV administration of 94 mL of Optiray-320, CT of the thorax was performed from the thoracic inlet to the lung bases. Images are reviewed in the axial, sagittal, and coronal planes. IV contrast was administered without complication. A dose lowering technique was utilized adhering to the principles of ALARA. CT DOSE: 1015.59 mGycm FINDINGS: Thyroid: There is an 8 mm left lobe thyroid nodule. Thoracic aorta: There are no findings to indicate acute thoracic aortic injury descending thoracic aorta measures 35 mm. Pulmonary vasculature: The pulmonary trunk is normal in caliber. There are no central filling defects identified to suggest pulmonary embolus. Note that this examination was not protocoled for the evaluation of pulmonary emboli. HEART: The heart is borderline enlarged. There are mild coronary artery calcifications. Lungs and pleural spaces: There is no pneumothorax. There are no pleural effusions. There are mild dependent atelectatic changes. There is no focal pulmonary consolidation. There is an irregular marginated 6 mm left upper lobe pulmonary nodule (image #[id number]). There is a solid 10 mm left upper lobe pulmonary nodule (image #[id number]). Mediastinum: There is no mediastinal lymphadenopathy. Leelee: There is no evidence of pathologic hilar adenopathy Axilla: There is no evidence pathologic axillary lymphadenopathy Upper abdomen: There is bilateral low density adrenal thickening likely secondary to adrenal hyperplasia. Skeletal structures: No acute fractures are visualized. There are multilevel degenerative changes present within the spine. There is bridging calcification of the anterior longitudinal ligament. There are advanced arthritic changes present within the shoulders. IMPRESSION: 1. No evidence of acute intrathoracic injury 2. 10 mm and 6 mm left upper lobe pulmonary nodules. A 3 month follow-up CT s can is recommended. Please refer to below summary of Fleischner criteria recommendations for follow- up of incidental CT nodules (Laura Ardon, Guidelines for management of small pulmonary nodules detected on CT scans: A statement from the Fleischner Society, Radiology 237: [phone].) SOLID NODULES Solitary nodule size: <6 mm * low risk patients: no follow-up needed * high risk patients: optional CT at 12 months Solitary nodule size: 6-8 mm * low risk patients: follow-up at 6-12 months, then consider further follow-up at 18-24 months * high risk patients: initial follow-up CT at 6-12 months and then at 18-24 months if no change Solitary nodule size: >8 mm * either low or high risk patients - consider follow-up CT at 3 months, and/or CT-PET, and/or biopsy Multiple nodules size: <6 mm * low risk patients: no routine follow-up * high risk patients: optional CT at 12 months Multiple nodules size: 6-8 mm * low risk patients: follow-up at 3-6 months, then consider further follow-up at 18-24 months * high risk patients: follow-up at 3-6 months, then at 18-24 months if no change Multiple nodules size: >8 mm * low risk patients: follow-up at 3-6 months, then consider further follow-up at 18-24 months * high risk patients: follow-up at 3-6 months, then at 18-24 months if no change Note: newly detected indeterminate nodule in persons 35 years of age or older. * low risk patients: minimal or absent history of smoking and/or other known risk factors * high risk patients: history of smoking or of other known risk factors (e.g. first degree relative with lung cancer, or exposure to asbestos, radon, uranium) * if a nodule up to 8 mm is partly solid or is ground glass further follow-up is required after 24 months to exclude possible slow growing adenocarcinoma (VARGAS) SUBSOLID NODULES Solitary pure ground-glass nodule * nodule size <6 mm - no CT follow-up required * nodule size >=6 mm - follow-up CT at 6-12 months, then every 2 years until 5 years Solitary part-solid nodule * nodule size <6 mm - no CT follow-up required * nodule size >=6 mm - follow-up CT at 3-6 months. If unchanged, and solid component remains <6 mm, then annual follow-up for 5 years Multiple subsolid nodules * nodule size <6 mm - follow-up CT at 3-6 months, consider further follow-up at 2 and 4 years if stable * nodule size >=6 mm - follow-up CT at 3-6 months, subsequent management based on the most suspicious nodule(s) Electronically signed by: Gilles Walters M.D. 02/25/2019 12:35 PM Dictated: 02/25/19 1226 Transcribed: 02/25/[address] head/brain wo con CLINICAL HISTORY: 83 years-old Female with pain fall,down 24hrs. Acute head injury status post fall TECHNIQUE: Multiple axial CT images of the head were obtained without contrast. A dose lowering technique was utilized adhering to the principles of ALARA. CT DOSE: 638.56 mGycm COMPARISON: CT cervical spine of same day FINDINGS: No acute intracranial hemorrhage, midline shift, intracranial mass, hydrocephalus, territorial ischemia or abnormal extra-axial collection. Mild age-related involutional changes. Patchy white matter hypodensities are suggestive of chronic microvascular ischemic disease. Cerebral vascular calcifications are also noted. The calvarium is intact. The paranasal sinuses, mastoid air cells, and middle ear cavities are clear. IMPRESSION: No acute intracranial abnormality or calvarial fracture. The above report was generated using voice recognition software. It may contain grammatical, syntax or spelling errors. Electronically signed by: Carlos Lewis M.D. 02/25/2019 12:20 PM Dictated: 02/25/19 1218 Transcribed: 02/25/19 1218 XR chest 1V portable CLINICAL HISTORY: Atypical chest pain COMPARISON STUDY: 01/26/2019 FINDINGS: The cardiac and mediastinal contours are normal. There is no evidence of focal pulmonary consolidation. There is no evidence of failure. No pleural effusions are visualized.[Advanced arthritic changes are present within the shoulders with evidence of bilateral rotator cuff tear. IMPRESSION: No active disease in the chest. Electronically signed by: Gilles Walters M.D. 02/25/2019 10:02 AM Dictated: 02/25/19 1002 Transcribed: 02/25/19 1002 XR knee LT 3V, XR tibia fibula LT 2V HISTORY: 83 years-old Female pain fall,down 24hrs acute left lower extremity pain status post fall COMPARISON: None available TECHNIQUE: 3 views of the left knee and 2 views of the left tibia and fibula FINDINGS: KNEE: Demineralized appearance of the bones. Total joint arthroplasty and patellar resurfacing. No acute fracture, dislocation or evidence of hardware complication. Patellar bernadine. TIBIA/FIBULA: Soft tissue prominence of the mid to lower leg and ankle. Degenerative changes of the tibiotalar joint without acute fracture, dislocation or opaque foreign body identified. Peripheral arterial calcifications are noted. Ill-defined sclerosis about the calcaneal body. IMPRESSION: Soft tissue swelling without acute fracture or dislocation identified. The above report was generated using voice recognition software. It may contain grammatical, syntax or spelling errors. Electronically signed by: Carlos Lewis M.D. 02/25/2019 10:04 AM Dictated: 02/25/19 1001 Transcribed: 02/25/19 1001 XR knee LT 3V, XR tibia fibula LT 2V HISTORY: 83 years-old Female pain fall,down 24hrs acute left lower extremity pain status post fall COMPARISON: None available TECHNIQUE: 3 views of the left knee and 2 views of the left tibia and fibula FINDINGS: KNEE: Demineralized appearance of the bones. Total joint arthroplasty and patellar resurfacing. No acute fracture, dislocation or evidence of hardware complication. Patellar bernadine. TIBIA/FIBULA: Soft tissue prominence of the mid to lower leg and ankle. Degenerative changes of the tibiotalar joint without acute fracture, dislocation or opaque foreign body identified. Peripheral arterial calcifications are noted. Ill-defined s clerosis about the calcaneal body. IMPRESSION: Soft tissue swelling without acute fracture or dislocation identified. The above report was generated using voice recognition software. It may contain grammatical, syntax or spelling errors. Electronically signed by: Carlos Lewis M.D. 02/25/2019 10:04 AM Dictated: 02/25/19 1001 Transcribed: 02/25/19 1001 Hospital Course (1) Ambulatory dysfunction: PT/OT to assess her safety to return home. Ambulates with a walker at baseline. (2) Status post fall: 2/2 ambulatory dysfunction and tripping Imaging showed no fracture seen Continue PT/OT Fall precaution (3) Rhabdomyolysis: Elevated CK 2/2 prolonged immobilization due to mechanical fall CK on admission 1028 Received IV Fluid, then CK improved to 373 Monitor BMP (4) Elevated troponin: Likely 2/2 elevated due to elevate CK EKG showed no ischemia changes Denies any chest pain (5) Epilepsy: chronic, stable, no seizure activity since age 47. Cont AEDs. (6) Chronic diastolic heart failure: euvolemic on exam. Will resume diuretic on discharge (7) Abnormal CT of the abdomen: Nonspecific gastric thickening and rectal wall changes. Per gastroenterology team, they would not work this up while the patient is hospitalized with rhabdomyolysis. Outpatient evaluation can be further considered when she is feeling better if her epigastric tenderness progresses or there is further concern regarding her diarrhea, which at this point is not impressive. (8) HTN (hypertension): BP stable Will resume Losartan. (9) Dementia: Mental status appears improved. Cont Namenda and Aricept. (10) Pulmonary nodule: CT chest showed 10 mm and 6 mm left upper lobe pulmonary nodules. Repeat CT scan in 3 months. (11) DVT prophylaxis: Lovenox CODE STATUS Full Code Disposition Discharge to rehab today Total Time Total Time Spent Total Time Spent (In Minutes): 35 minutes Total Time Includes: Examination of the Patient, Discharge Planning, Medication Reconciliation, Communication With Other Providers and Other Discharge Plan Discharge Items Patient Disposition: Transfer Inpatient Rehab Fac Reason For Visit: FALL Discharge Diagnosis: Ambulatory dysfunction Status post fall Rhabdomyolysis Elevated troponin Epilepsy Lung Nodule Chronic diastolic heart failure Dementia Discharge Goals: Decrease discomfort, Improve disease control, Improve function and Increase independence Activity: Resume your previous activity Activity Comment: As tolerated Non-emergency contact: Primary Care Provider Call non-emergency contact if: you have any medication questions Follow-up/Referrals: Bettie Wyman DO [Primary Care Provider] - Diet: Heart Healthy Addtl Provider Instructions: Follow up with your primary care provider once discharge from rehab Continue physical and occupational therapy Fall precaution (Use walker to ambulate) Your physician will monitor your lung nodule that was seen on CAT scan Continue oxygen supplement Prescriptions: Continued carvedilol 12.5 mg tablet 12.5 mg PO BID RF: 0 lorazepam 0.5 mg tablet 0.5 mg PO HS PRN (Reason: Anxiety) RF: 0 aspirin [Aspir-81] 81 mg Tablet,Delayed Release (Dr/Ec) 81 mg PO HS RF: 0 carbamazepine [Tegretol] 200 mg Tablet 600 mg PO HS RF: 0 nitroglycerin [Nitrostat] 0.4 mg Tablet, Sublingual 0.4 mg Sublingual DIRECTED PRN (Reason: Chest Pain) RF: 0 cyanocobalamin (vitamin B-12) [Vitamin B-12] 2,000 mcg Tablet Extended Release 2,000 mcg PO QAM RF: 0 losartan 100 mg Tablet 100 mg PO QAM RF: 0 cholecalciferol (vitamin D3) [Vitamin D3] 1,000 unit Capsule 1,000 unit PO PM RF: 0 rosuvastatin [Crestor] 5 mg Tablet 5 mg PO QPM RF: 0 biotin 1 mg Tablet 1 mg PO PM RF: 0 Ocuvite with Lutein 1,000 unit-200 mg-60 unit-2 mg Tablet 1 tab PO QAM RF: 0 Centrum 18-400 mg-mcg Tablet 1 tab PO QAM RF: 0 coQ10 (ubiquinol) 200 mg Capsule 200 mg PO QAM RF: 0 gabapentin 100 mg Capsule 100 mg PO BID RF: 0 Breo Ellipta 100-25 mcg/dose Blister With Device 1 inh INHALATION HS RF: 0 acetaminophen [Tylenol] 325 mg Tablet 650 mg PO HS RF: 0 donepezil 5 mg tablet 5 mg PO QAM RF: 0 sertraline 100 mg tablet 150 mg PO QAM RF: 0 furosemide 80 mg tablet 80 mg PO BID RF: 0 Stand-Alone Forms: [facility] Discharge Orders: Discharge Order (Routine); Ordered 02/27/19 Ordered By: Uriel Henry Skilled Items Patient informed of condition?: Yes DNR: No Discharge Level of Care: Acute rehab Communicable Disease: No Discharge Prognosis: Stable Admission Data Admit Date/Time: 02/25/19 13:19 Attending Provider: Uriel Henry Admit Provider: Radha Cotto Primary Care Provider: Bettie Wyman Other Providers: Radha Cotto ; Pao Escalante ; Home,Nursing Agency Service: Telemetry Medical
== END 2019-02-27 14:18 | DRG 558 ==
LOC: ED 08:49 → 2N 13:19 → SUATTDRO 13:19 → 2N 13:52

== ENCOUNTER 2020-08-24 21:48 | Inpatient (IN) ==
[2020-08-24] MEDS ORDERED: ALBUT/IPRATROP 3MG/0.5MG NEB 3 ML VIAL INH STA (22:04)
--- NOTE | 2020-08-24 22:10 | Emergency Department Note ---
History of Present Illness General Chief complaint: Shortness of Breath/Dyspnea Stated complaint: SOB Time Seen by Provider: 08/24/20 21:57 Source: patient and EMS Mode of arrival: EMS History of Present Illness Provider complaint: Shortness of breath Onset (ago): week(s) 1 Location: chest Pain Consistency: + intermittent Maximum Pain Intensity: 2 Quality: + other (Shortness of breath with tightness in chest) Relieved By: + none Associated symptoms: + chest pain, + cough (Mild nonproductive) and + shortness of breath; no fever/chills and no nausea/vomiting This is an 84-year-old female presents with shortness of breath and chest tightness. The patient has a history of COPD and CHF. She states over the past week she has felt increasingly short of breath. She also complains of tightness in her chest which is normal for her to get when she gets short of breath. She is normally on 2 L of oxygen at all times. She states that she has been taking her Lasix as prescribed and has not noticed any gain in her weight or swelling to her legs. She does state that she is on prednisone but does not know what dose. She has not used a nebulizer today. She denies any known exposure to COVID-19 but does state that she has a mild nonproductive cough. She denies any fever, loss of taste or smell, abdominal pain, vomiting or diarrhea. She denies any history of heart attack. Home Medications Medication Instructions Recorded Confirmed Type Breo Ellipta 1 inh INHALATION HS 09/22/18 08/24/20 History Centrum 1 tab PO QAM 09/22/18 08/24/20 History Ocuvite with Lutein 1 tab PO QAM 09/22/18 08/24/20 History carbamazepine [Tegretol] 600 mg PO HS 09/22/18 08/24/20 History cholecalciferol (vitamin D3) 1,000 unit PO QAM 09/22/18 08/24/20 History [Vitamin D3] coQ10 (ubiquinol) 400 mg PO QAM 09/22/18 08/24/20 History gabapentin 100 mg PO BID 09/22/18 08/24/20 History losartan 100 mg PO QAM 09/22/18 08/24/20 History nitroglycerin [Nitrostat] 0.4 mg SUBLINGUAL DIRECTED PRN 09/22/18 08/24/20 History sertraline 150 mg PO QAM 01/26/19 08/24/20 History atorvastatin 10 mg PO DAILY 01/15/20 08/24/20 History biotin 2,500 mcg PO DAILY 01/15/20 08/24/20 History carvedilol 6.25 mg PO BID 01/15/20 08/24/20 History cyanocobalamin (vitamin B-12) 1,000 mcg PO DAILY 01/15/20 08/24/20 History diclofenac sodium 2 g TOPICAL BID PRN 01/15/20 08/24/20 History docusate sodium [Colace] 100 mg PO BID #60 cap 03/04/20 08/24/20 Rx sennosides [Senokot] 8.6 mg PO HS #30 tab 03/04/20 Rx alendronate 70 mg PO UD 08/24/20 08/24/20 History aspirin [Aspirin Low Dose] 81 mg PO HS 08/24/20 08/24/20 History furosemide 40 mg PO DAILY 08/24/20 08/24/20 History Allergies Allergy/AdvReac Type Severity Reaction Status Date / Time hydromorphone Allergy Severe SHORTNESS Verified 03/04/20 10:11 OF BREATH Past Med/Surg History Medical History (Updated 08/24/20 @ 23:26 by Manuel Livingston MD) A-V fistula Arthritis Chronic diastolic heart failure Chronic pulmonary hypertension COPD (chronic obstructive pulmonary disease) COPD (chronic obstructive pulmonary disease) Dementia Depression Depression Epilepsy HTN (hypertension) Macular degeneration Obstructive sleep apnea PAD (peripheral artery disease) Rheumatoid arthritis Surgical History H/O: hysterectomy History of S/P hip replacement Status post Achilles tendon repair Status post appendectomy Status post cholecystectomy Status post hysterectomy Status post right knee replacement Family History Father Hypertension Mother Breast cancer Other Family history non-contributory Social History Smoking Status: Unknown if ever smoked Cigarettes Per Day: 40; Second Hand Exposure: No; Hx Alcohol Use: Yes Alcohol type: wine Hx Substance Use: No Preferred Language: Greenlandic Communication Ability: Effective Mandrel [employer] Hand Required: No Beliefs That Will Affect Care: None marital status: Current Living Situation: Alone current occupational status: retired Feels Safe at Home: Yes Assistive Devices: Oxygen - Continuous and Walker Review of Systems See HPI for pertinent positives & negatives. and A total of 10 systems reviewed and were otherwise negative Physical Exam Vital Signs Vital Signs - 24 hr 08/24/20 21:45 08/24/20 21:57 08/24/20 22:04 Temperature 37 C Temperature Source Oral Pulse Rate 61 Pulse Rate [Right Finger] Respiratory Rate 18 Respiratory Effort / Characteristics Non-Labored Non-Labored Respiratory Depth Normal Normal Respiratory Pattern Regular Regular Blood Pressure 172/137 H Blood Pressure Mean 148 Blood Pressure Position Lying Pulse Oximetry 99 Oxygen Delivery Method Nasal Cannula Nasal Cannula Nasal Cannula Oxygen Flow Rate 2 2 2 Sepsis Recent Fever Within 48 Hours No Sepsis New/Unexplained Change in Mental Status No Sepsis Action Taken by Nursing No Action Required 08/24/20 22:22 Temperature Temperature Source Pulse Rate Pulse Rate [Right Finger] 59 L Respiratory Rate 16 Respiratory Effort / Characteristics Non-Labored Spontaneous Respiratory Depth Respiratory Pattern Blood Pressure Blood Pressure Mean Blood Pressure Position Pulse Oximetry 99 Oxygen Delivery Method Nasal Cannula Oxygen Flow Rate 2 Sepsis Recent Fever Within 48 Hours Sepsis New/Unexplained Change in Mental Status Sepsis Action Taken by Nursing Constitutional: Vital signs reviewed. Eyes: Pupils are equal round reactive to light. Conjunctiva are noninjected. ENT: Pharynx is clear without erythema or exudate. Mucous membranes are moist. Neck supple without meningeal signs. Respiratory: Clear to auscultation bilaterally. Breath sounds are equal bilaterally although air entry seems slightly limited which may be secondary to patient effort. Cardiovascular: Regular rate and rhythm. No rubs or gallops. GI: Soft, nondistended and nontender. Bowel sounds are present. Musculoskeletal: No peripheral edema. No lower extremity tenderness. Integumentary: No cyanosis. or jaundice. Neurological: The patient is awake and alert. No focal deficits. Psychiatric: Normal affect. Not anxious appearing. Course Administered Medications Discontinued Medications Albuterol (Albut/Ipratrop 3mg/0.5mg Neb 3 Ml Vial) 3 ml INH NOW STA Stop: 08/24/20 22:05 Last Admin: 08/24/20 22:18 Dose: 3 ml Documented by: [id number] Medical Decision Making Differential Diagnosis COPD exacerbation, CHF exacerbation, pulmonary edema, pneumonia, COVID-19, anemia Medical Records Attestation: I reviewed the patient's medical records. I did perform a limited focused review of portions of the patient's old chart on the electronic medical record. The patient has had no recent pertinent visits to this hospital. Home Medications Current Medication List: was personally reviewed by me Laboratory Data Attestation: I reviewed the patient's lab results. Result diagrams: 08/24/20 22:28 08/24/20 22:28 Lab Results 08/24/20 08/24/20 08/24/20 Range/Units 22:05 22:05 22:28 WBC (4.8-10.8) K/uL RBC (4.2-5.4) M/uL Hgb (12.0-16.0) g/dL Hct (37-47) % MCV (80-100) fL MCH (25-34) pg MCHC (32-36) g/dL RDW Std Deviation (36.4-46.3) fL RDW Coeff of Marco (11.5-14.5) % Plt Count (130-400) K/uL MPV (7.4-10.4) fL Immature Gran % (Auto) % Neut % (Auto) % Lymph % (Auto) % [place] % (Auto) % Eos % (Auto) % Baso % (Auto) % Neut # (Auto) (1.4-6.5) K/uL Lymph # (Auto) (1.2-3.4) K/uL [place] # (Auto) (0.11-0.59) K/uL Eos # (Auto) (0-0.5) K/uL Baso # (Auto) (0-0.2) K/uL Immature Gran # (Auto) (0.00-0.02) K/uL PT (9.0-12.0) Seconds INR (0.9-1.1) APTT (21.0-31.0) Seconds PTT Ratio Sodium 144 (136-145) mmol/L Potassium 3.7 (3.5-5.1) mmol/L Chloride 110 H (98-107) mmol/L Carbon Dioxide 27 (21-32) mmol/L Anion Gap 7.0 (3-11) BUN 22 H (7-18) mg/dl Creatinine 0.61 (0.6-1.2) mg/dl Est Cr Clr Drug Dosing 63.6 ml/min Est GFR ( Amer) 95.8 Est GFR (Non-Af Amer) 82.7 BUN/Creatinine Ratio 35.9 H (10-20) Glucose 82 (70-99) mg/dl Calcium 9.4 (8.5-10.1) mg/dl Total Bilirubin 0.3 (0.2-1) mg/dl AST 22 (15-37) U/L ALT 21 (12-78) U/L Alkaline Phosphatase 131 H (45-117) U/L Troponin I < 0.015 (0-0.045) ng/ml NT-Pro-B Natriuret Pep 688 (0-1800) pg/ml Total Protein 7.6 (6.4-8.2) gm/dl Albumin 3.4 (3.4-5.0) gm/dl Globulin 4.2 H (2.5-4.0) gm/dl Albumin/Globulin Ratio 0.8 L (0.9-2) Specimen Hemolysis COVID-19 Eval Order CovFluRsv at [facility] SARS-CoV-2 (PCR) NEGATIVE (Negative) Influenza Type A (PCR) Negative (Neg) Influenza Type B (PCR) Negative (Neg) RSV (RT-PCR) Negative (Neg) 08/24/20 08/24/20 Range/Units 22:28 22:28 WBC 6.36 (4.8-10.8) K/uL RBC 3.99 L (4.2-5.4) M/uL Hgb 13.0 (12.0-16.0) g/dL Hct 38.2 (37-47) % MCV 95.7 (80-100) fL MCH 32.6 (25-34) pg MCHC 34.0 (32-36) g/dL RDW Std Deviation 45.3 (36.4-46.3) fL RDW Coeff of Marco 12.9 (11.5-14.5) % Plt Count 196 (130-400) K/uL MPV 9.4 (7.4-10.4) fL Immature Gran % (Auto) 0.2 % Neut % (Auto) 46.0 % Lymph % (Auto) 43.6 % [place] % (Auto) 8.6 % Eos % (Auto) 1.3 % Baso % (Auto) 0.3 % Neut # (Auto) 2.93 (1.4-6.5) K/uL Lymph # (Auto) 2.77 (1.2-3.4) K/uL [place] # (Auto) 0.55 (0.11-0.59) K/uL Eos # (Auto) 0.08 (0-0.5) K/uL Baso # (Auto) 0.02 (0-0.2) K/uL Immature Gran # (Auto) 0.01 (0.00-0.02) K/uL PT 11.2 (9.0-12.0) Seconds INR 1.1 (0.9-1.1) APTT 27.8 (21.0-31.0) Seconds PTT Ratio 1.0 Sodium (136-145) mmol/L Potassium (3.5-5.1) mmol/L Chloride (98-107) mmol/L Carbon Dioxide (21-32) mmol/L Anion Gap (3-11) BUN (7-18) mg/dl Creatinine (0.6-1.2) mg/dl Est Cr Clr Drug Dosing ml/min Est GFR ( Amer) Est GFR (Non-Af Amer) BUN/Creatinine Ratio (10-20) Glucose (70-99) mg/dl Calcium (8.5-10.1) mg/dl Total Bilirubin (0.2-1) mg/dl AST (15-37) U/L ALT (12-78) U/L Alkaline Phosphatase (45-117) U/L Troponin I (0-0.045) ng/ml NT-Pro-B Natriuret Pep (0-1800) pg/ml Total Protein (6.4-8.2) gm/dl Albumin (3.4-5.0) gm/dl Globulin (2.5-4.0) gm/dl Albumin/Globulin Ratio (0.9-2) Specimen Hemolysis COVID-19 Eval Order SARS-CoV-2 (PCR) (Negative) Influenza Type A (PCR) (Neg) Influenza Type B (PCR) (Neg) RSV (RT-PCR) (Neg) Imaging Data Attestation: I personally reviewed and interpreted this imaging study as follows: My Impression: Chest x-ray per my interpretation shows no acute cardiopulmonary process. ECG Data Attestation: I personally reviewed and interpreted this ECG as follows: Indication: + SOB/dyspnea Rate (beats per minute): 59 Rhythm: + sinus bradycardia ECG Intervals/blocks: + Normal QRS ECG ST segments: no ST elevation ECG Findings: no PVCs MDM Narrative I did evaluate the patient as noted above. The patient is presenting with shortness of breath for the past week. She has also complained of chest tightness but states she normally gets this when she feels short of breath. She does have a history of CHF. She states that she came in today because her daughter insisted. She denies any worsening of her symptoms today. I did treat her with a DuoNeb. IV access was established. I did place an order for continuous cardiac monitoring. The monitor showed normal sinus rhythm at a rate of 60 bpm. I did order and personally review the patient's 12-lead EKG as described above. I did order and personally reviewed the images of the wai baptiste's chest x-ray as described above. I see no evidence of consolidation or significant pulmonary vascular congestion. I did order and review the patient's blood work as noted in the electronic medical record. CBC is unremarkable without leukocytosis or anemia. Electrolytes are unremarkable. Troponin is negative. BNP is not elevated. COVID-19 and influenza testing are both negative. I did reassess the patient. I did discuss the test results with the patient. She states she feels better but does not feel she should be going home. She will be hospitalized for further care and evaluation and repeat cardiac biomarkers. I did discuss the case with the hospitalist and case packer and sealer. Impression & Plan Acute exacerbation of chronic obstructive pulmonary disease, Chest pain Discharge Plan Visit Data Chief Complaint: Shortness of Breath/Dyspnea Stated Complaint: SOB ED Provider: Manuel Livingston Discharge Problem: Acute exacerbation of chronic obstructive pulmonary disease, Chest pain Patient Disposition: Being Evaluated by Hospitalist Forms Stand Alone Forms: My [employer] Prescriptions Prescriptions: No Action carbamazepine [Tegretol] 200 mg Tablet 600 mg PO HS RF: 0 nitroglycerin [Nitrostat] 0.4 mg Tablet, Sublingual 0.4 mg Sublingual DIRECTED PRN (Reason: Chest Pain) RF: 0 losartan 100 mg Tablet 100 mg PO QAM RF: 0 cholecalciferol (vitamin D3) [Vitamin D3] 1,000 unit Capsule 1,000 unit PO QAM RF: 0 rosuvastatin [Crestor] 5 mg Tablet 5 mg PO HS RF: 0 Ocuvite with Lutein 1,000 unit-200 mg-60 unit-2 mg Tablet 1 tab PO QAM RF: 0 Centrum 18-400 mg-mcg Tablet 1 tab PO QAM RF: 0 coQ10 (ubiquinol) 200 mg Capsule 400 mg PO QAM RF: 0 gabapentin 100 mg Capsule 100 mg PO BID RF: 0 Breo Ellipta 100-25 mcg/dose Blister With Device 1 inh INHALATION HS RF: 0 sertraline 100 mg tablet 150 mg PO QAM RF: 0 atorvastatin 10 mg tablet 10 mg PO DAILY RF: 0 carvedilol 6.25 mg tablet 6.25 mg PO BID RF: 0 cyanocobalamin (vitamin B-12) 1,000 mcg Tablet 1,000 mcg PO DAILY RF: 0 diclofenac sodium 1 % Gel 2 g TOPICAL BID PRN (Reason: Pain) RF: 0 biotin 2,500 mcg Capsule 2,500 mcg PO DAILY RF: 0 oxycodone 5 mg tablet 5 mg PO Q6H PRN (Reason: pain) Qty: 14 RF: 0 sennosides [Senokot] 8.6 mg tablet 8.6 mg PO HS Qty: 30 RF: 0 docusate sodium [Colace] 100 mg capsule 100 mg PO BID Qty: 60 RF: 0 alendronate 70 mg tablet 70 mg PO UD RF: 0 aspirin [Aspirin Low Dose] 81 mg Tablet,Delayed Release (Dr/Ec) 81 mg PO HS RF: 0 furosemide 40 mg tablet 40 mg PO DAILY RF: 0 Referrals Referrals: Bettie Wyman DO [Primary Care Provider] -
[2020-08-24 22:42] LABS: Basophils # (auto) 0.02 K/uL (0-0.2); Basophils % (auto) 0.3 %; Eosinophils # (auto) 0.08 K/uL (0-0.5); Eosinophils % (auto) 1.3 %; Hematocrit (blood only) 38.2 % (37-47); Immature Granulocytes # (auto) 0.01 K/uL (0.00-0.02); Immature Granulocytes % (auto) 0.2 %; Lymphocytes # (auto) 2.77 K/uL (1.2-3.4); Lymphocytes % (auto) 43.6 %; Mean Corpuscular Hemoglobin 32.6 pg (25-34); Mean Corpuscular Volume 95.7 fL (80-100); Mean Platelet Volume 9.4 fL (7.4-10.4); Monocytes # (auto) 0.55 K/uL (0.11-0.59); Monocytes % (auto) 8.6 %; Neutrophils # (auto) 2.93 K/uL (1.4-6.5); Platelet Count 196 K/uL (130-400); RDW Coefficient of Variation 12.9 % (11.5-14.5); RDW Standard Deviation 45.3 fL (36.4-46.3); Red Blood Count 3.99 M/uL (4.2-5.4); White Blood Count 6.36 K/uL (4.8-10.8)
[2020-08-24 22:54] LABS: INR 1.1 (0.9-1.1); Partial Thromboplastin Time 27.8 Seconds (21.0-31.0); Prothrombin Time 11.2 Seconds (9.0-12.0)
[2020-08-24 23:10] LABS: Influenza A virus by PCR Negative (Neg); Influenza B virus by PCR Negative (Neg); RSV by PCR Negative (Neg); SARS CoV2 RNA(COVID-19) InHosp NEGATIVE (Negative)
[2020-08-24 23:14] LABS: Alanine Aminotransferase 21 U/L (12-78); Albumin Globulin Ratio 0.8 (0.9-2); Albumin Level 3.4 gm/dl (3.4-5.0); Alkaline Phosphatase 131 U/L (45-117); Aspartate Aminotransferase 22 U/L (15-37); BUN Creatinine Ratio 35.9 (10-20); Bilirubin,Total 0.3 mg/dl (0.2-1); Blood Urea Nitrogen 22 mg/dl (7-18); Calcium 9.4 mg/dl (8.5-10.1); Carbon Dioxide 27 mmol/L (21-32); Chloride 110 mmol/L (98-107); Creatinine Clr Calc Pharmacy 63.6 ml/min; Est GFR (African American) 95.8; Est GFR (Non-African American) 82.7; Globulin 4.2 gm/dl (2.5-4.0); Glucose 82 mg/dl (70-99); NT Pro B Type Natriuretic Pept 688 pg/ml (0-1800); Potassium 3.7 mmol/L (3.5-5.1); Sodium 144 mmol/L (136-145); Total Protein 7.6 gm/dl (6.4-8.2); Troponin I < 0.015 ng/ml (0-0.045)
[2020-08-24] MEDS ORDERED: LOSARTAN POTASSIUM 50 MG TAB PO STA (23:52)
--- NOTE | 2020-08-25 00:11 | History & Physical Report ---
Date of Service August 25, 2020 Assessment & Plan (1) SOB (shortness of breath): Possible viral RTI Rule out PE given abnormal D-dimer chronic diastolic heart failure (EF 60-64 %, TTE 2019), patient euvolemic hx COPD/MARION on BIPAP/pulmonary hypertension as per records PAD as per records hypertension, elevated secondary to anxiety and missed nighttime medications seizure disorder, stable bladder cancer as per records heumatoid arthritis, stable past tobacco abuse OBS Medical telemetry Supportive management for viral RTI CT chest PE study Further management pending CT results Analgesia, facilitate home BP meds DVT prophylaxis. Lovenox subcu DNR Text document was generated using Debte[employer] voice recognition software. It may contain grammatical or spelling errors. Kindly contact undersigned for clarification of any documentation item in question. History of Present Illness Clinic Chief Complaint: Chest pain, shortness of breath Primary Care Provider: Bettie Wyman, History obtained from patient and records. Medical history significant for chronic diastolic heart failure (EF 60-64 %, TTE 2019), COPD/MARION on BIPAP/pulmonary hypertension as per records, PAD as per records, hypertension, seizure disorder, bladder cancer as per records, rheumatoid arthritis, dementia, past tobacco abuse. Last confinement February 2019 for ambulatory dysfunction, rhabdomyolysis. 1 week history of dry cough symptoms, substernal chest tightness, shortness of breath. No fever, no chills. Building occupants with COVID-19 as per patient. Patient denies direct exposure as she has not left her apartment. No unusual fluid retention. At the ER, some improvement of symptoms after breathing treatment. 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 Allergies Allergy/AdvReac Type Severity Reaction Status Date / Time hydromorphone Allergy Severe SHORTNESS Verified 08/24/20 23:42 OF BREATH Home Medications Medication Instructions Recorded Confirmed Type Breo Ellipta 1 inh INHALATION HS 09/22/18 08/24/20 History Centrum 1 tab PO QAM 09/22/18 08/24/20 History Ocuvite with Lutein 1 tab PO QAM 09/22/18 08/24/20 History carbamazepine [Tegretol] 600 mg PO HS 09/22/18 08/24/20 History cholecalciferol (vitamin D3) 1,000 unit PO QAM 09/22/18 08/24/20 History [Vitamin D3] coQ10 (ubiquinol) 400 mg PO QAM 09/22/18 08/24/20 History gabapentin 100 mg PO BID 09/22/18 08/24/20 History losartan 100 mg PO QAM 09/22/18 08/24/20 History nitroglycerin [Nitrostat] 0.4 mg SUBLINGUAL DIRECTED PRN 09/22/18 08/24/20 History sertraline 150 mg PO QAM 01/26/19 08/24/20 History atorvastatin 10 mg PO DAILY 01/15/20 08/24/20 History biotin 2,500 mcg PO HS 01/15/20 08/24/20 History carvedilol 6.25 mg PO BID 01/15/20 08/24/20 History cyanocobalamin (vitamin B-12) 1,000 mcg PO DAILY 01/15/20 08/24/20 History diclofenac sodium 2 g TOPICAL BID PRN 01/15/20 08/24/20 History aspirin [Aspirin Low Dose] 81 mg PO HS 08/24/20 08/24/20 History furosemide 40 mg PO DAILY 08/24/20 08/24/20 History Past Med/Surg History Medical History (Updated 08/25/20 @ 04:00 by Al Camilo MD) A-V fistula Arthritis Chronic diastolic heart failure Chronic pulmonary hypertension COPD (chronic obstructive pulmonary disease) COPD (chronic obstructive pulmonary disease) Dementia Depression Depression Epilepsy HTN (hypertension) Macular degeneration Obstructive sleep apnea PAD (peripheral artery disease) Rheumatoid arthritis Surgical History H/O: hysterectomy History of S/P hip replacement Status post Achilles tendon repair Status post appendectomy Status post cholecystectomy Status post hysterectomy Status post right knee replacement Family History Father Hypertension Mother Breast cancer Other Family history non-contributory Social History Smoking Status: Former smoker Cigarettes Per Day: 40; Second Hand Exposure: No; Hx Alcohol Use: No Hx Substance Use: No Preferred Language: Fijian Communication Ability: Effective [employer] Inspector Required: No Beliefs That Will Affect Care: None marital status: Current Living Situation: Alone current occupational status: retired Feels Safe at Home: Yes Assistive Devices: Denture - Upper, Glasses and Walker Review of Systems Review of Systems: As per HPI, all 10 systems reviewed, all other ROS negative Physical Exam Physical Exam: GENERAL: Comfortable, obese, slightly anxious, looks younger than stated age, no respiratory distress SKIN: Normal color, warm HEENT: Bespectacled, pink palpebral conjunctivae, no ptosis, dry buccal mucosa NECK : Supple, no tenderness CHEST : Decreased breath sounds, no tenderness HEART : Bradycardic, no obvious murmurs ABDOMEN: Some distention, nontender EXTREMITIES : RLE swelling, no LE tenderness, no other conspicuous deformities noted NEUROLOGIC : Coherent, no facial asymmetry, no other gross focality Results & Data Results & Data ([facility]) Vital Signs (Past 12 Hours) Vital Signs Temp Pulse Pulse Resp BP Pulse Ox 08/24/20 22:22 59 L 16 99 08/24/20 21:45 37 C 61 18 172/137 H 99 Laboratory Results Laboratory Results WBC 6.36 K/uL (4.8-10.8) 08/24/20 22: RBC 3.99 M/uL (4.2-5.4) L 08/24/20 22:28 Hgb 13.0 g/dL (12.0-16.0) 08/24/20 22:28 Hct 38.2 % (37-47) 08/24/20 22: MCV 95.7 fL (80-100) 08/24/20 22:28 MCH 32.6 pg (25-34) 08/24/20 22:28 MCHC 34.0 g/dL (32-36) 08/24/20 22:28 RDW Std Deviation 45.3 fL (36.4-46.3) 08/24/20 22:28 RDW Coeff of Marco 12.9 % (11.5-14.5) 08/24/20 22: Plt Count 196 K/uL (130-400) 08/24/20 22:28 MPV 9.4 fL (7.4-10.4) 08/24/20 22:28 Immature Gran % (Auto) 0.2 % 08/24/20 22:28 Neut % (Auto) 46.0 % 08/24/20 22: Lymph % (Auto) 43.6 % 08/24/20 22: [facility] % (Auto) 8.6 % 08/24/20 22: Eos % (Auto) 1.3 % 08/24/20 22: Baso % (Auto) 0.3 % 08/24/20 22: Neut # (Auto) 2.93 K/uL (1.4-6.5) 08/24/20 22: Lymph # (Auto) 2.77 K/uL (1.2-3.4) 08/24/20 22: [facility] # (Auto) 0.55 K/uL (0.11-0.59) 08/24/20 22: Eos # (Auto) 0.08 K/uL (0-0.5) 08/24/20 22: Baso # (Auto) 0.02 K/uL (0-0.2) 08/24/20: Immature Gran # (Auto) 0.01 K/uL (0.00-0.02) 08/24/20 22: PT 11.2 Seconds (9.0-12.0) 08/24/20 22: INR 1.1 (0.9-1.1) 08/24/20 22: APTT 27.8 Seconds (21.0-31.0) 08/24/20 22: PTT Ratio 1.0 08/24/20 22: Sodium 144 mmol/L (136-145) 08/24/20 22: Potassium 3.7 mmol/L (3.5-5.1) 08/24/20 22: Chloride 110 mmol/L (98-107) H 08/24/20 22: Carbon Dioxide 27 mmol/L (21-32) 08/24/20 22: Anion Gap 7.0 (3-11) 08/24/20 22: BUN 22 mg/dl (7-18) H 08/24/20 22: Creatinine 0.61 mg/dl (0.6-1.2) 08/24/20 22: Est Cr Clr Drug Dosing 63.6 ml/min 08/24/20 22:28 Est GFR ( Amer) 95.8 08/24/20 22:28 Est GFR (Non-Af Amer) 82.7 08/24/20 22:28 BUN/Creatinine Ratio 35.9 (10-20) H 08/24/20 22:28 Glucose 82 mg/dl (70-99) 08/24/20 22:28 Calcium 9.4 mg/dl (8.5-10.1) 08/24/20 22:28 Total Bilirubin 0.3 mg/dl (0.2-1) 08/24/20 22:28 AST 22 U/L (15-37) 08/24/20 22:28 ALT 21 U/L (12-78) 08/24/20 22:28 Alkaline Phosphatase 131 U/L (45-117) H 08/24/20 22:28 Troponin I < 0.015 ng/ml (0-0.045) 08/24/20 22:28 NT-Pro-B Natriuret Pep 688 pg/ml (0-1800) 08/24/20 22:28 Total Protein 7.6 gm/dl (6.4-8.2) 08/24/20 22:28 Albumin 3.4 gm/dl (3.4-5.0) 08/24/20 22:28 Globulin 4.2 gm/dl (2.5-4.0) H 08/24/20 22:28 Albumin/Globulin Ratio 0.8 (0.9-2) L 08/24/20 22:28 Specimen Hemolysis 08/24/20 22:28 COVID-19 Eval Order [facility]FluRsv at [facility] 08/24/20 22:05 SARS-CoV-2 (PCR) NEGATIVE (Negative) 08/24/20 22:05 Influenza Type A (PCR) Negative (Neg) 08/24/20 22:05 Influenza Type B (PCR) Negative (Neg) 08/24/20 22:05 RSV (RT-PCR) Negative (Neg) 08/24/20 22:05 Diagnostic Findings Chest x-ray as per my interpretation atelectasis EKG as per my interpretation : Rate 55, sinus bradycardia, normal axis, no ischemia
[2020-08-25 00:16] LABS: D Dimer 1030 ug/L FEU (0-500)
[2020-08-25 00:36] LABS: Magnesium 2.1 mg/dl (1.8-2.4)
[2020-08-25] MEDS ORDERED: ACETAMINOPHEN 325 MG TAB PO PRN (01:29)
[2020-08-25] MEDS ORDERED: ALBUT/IPRATROP 3MG/0.5MG NEB 3 ML VIAL NEB PRN (01:29)
[2020-08-25] MEDS ORDERED: oxyCODONE HCL IR 5 MG TAB (IMMEDIATE RELEASE) PO PRN (01:29)
[2020-08-25] MEDS ORDERED: DICLOFENAC SOD 1% GEL 100 GM TUBE EXT PRN (01:29)
[2020-08-25] MEDS ORDERED: OPTIRAY 320 125ml IV ONE (01:31)
[2020-08-25] MEDS ORDERED: carBAMazepine 200 MG TABLET PO ONE (01:36)
[2020-08-25] MEDS ORDERED: PNEUMOCOCCAL ADMINISTRATION CHARGE ONE (02:00)
[2020-08-25] MEDS ORDERED: PNEUMOCOCCAL POLYSACCHARIDES 25 MCG/0.5 ML VIAL/SYR IM ONE (02:00)
[2020-08-25] MEDS: guaiFENesin 600 MG TABCR PO SCH ×3 (02:26→20:28)
[2020-08-25] MEDS: GABAPENTIN 100 MG CAP PO SCH ×3 (02:26→20:29)
[2020-08-25] MEDS ORDERED: SODIUM CHLORIDE 0.9% 500 ML IV ONE (03:35)
[2020-08-25] MEDS: carvediloL 6.25 MG TAB PO SCH ×3 (04:47→20:28)
[2020-08-25 07:12] LABS: Mean Corpuscular Hgb Conc 32.9 g/dL (32-36); Mean Platelet Volume 9.3 fL (7.4-10.4); Platelet Count 161 K/uL (130-400)
[2020-08-25 07:37] LABS: Basophils # (auto) 0.03 K/uL (0-0.2); Basophils % (auto) 0.5 %; Eosinophils % (auto) 1.7 %; Hemoglobin 11.5 g/dL (12.0-16.0); Immature Granulocytes # (auto) 0.01 K/uL (0.00-0.02); Immature Granulocytes % (auto) 0.2 %; Lymphocytes # (auto) 2.47 K/uL (1.2-3.4); Lymphocytes % (auto) 42.5 %; Mean Corpuscular Hemoglobin 31.6 pg (25-34); Mean Corpuscular Volume 96.2 fL (80-100); Monocytes # (auto) 0.44 K/uL (0.11-0.59); Monocytes % (auto) 7.6 %; Neutrophils # (auto) 2.76 K/uL (1.4-6.5); Neutrophils % (auto) 47.5 %; Ovalocytes 1+; RDW Coefficient of Variation 13.1 % (11.5-14.5); RDW Standard Deviation 45.9 fL (36.4-46.3); Red Blood Count 3.64 M/uL (4.2-5.4); White Blood Count 5.81 K/uL (4.8-10.8)
[2020-08-25 07:39] LABS: BUN Creatinine Ratio 39.2 (10-20); Calcium 8.8 mg/dl (8.5-10.1); Creatinine Clr Calc Pharmacy 76.5 ml/min; Est GFR (Non-African American) 88.8; Potassium 3.4 mmol/L (3.5-5.1)
[2020-08-25 07:43] LABS: C Reactive Protein < 0.29 mg/dl (0-0.29); Troponin I < 0.015 ng/ml (0-0.045)
--- NOTE | 2020-08-25 07:58 | XRay Report ---
XR chest 1V portable HISTORY: Dyspnea COMPARISON: Chest 11/10/2019. FINDINGS: The cardiac silhouette remains mildly enlarged. No pneumothorax. No pleural effusions. Adva nced degenerative changes noted within the shoulders. Mildly tortuous and calcified thoracic aorta. T he patient's known left upper lobe nodule is not well visualized on this study. No focal lung consoli dations to suggest pneumonia. Mild interstitial thickening. This is likely chronic. IMPRESSION: 1. No acute process within the chest. 2. The patient's known left upper lobe nodule is better appreciated on the recent chest CT. ACT 112: Negative or not required by law. Electronically signed by: Esvin Cardenas M.D. 08/25/2020 7:57 AM
--- NOTE | 2020-08-25 08:21 | CT Scan Report ---
CT ANGIOGRAPHY OF THE CHEST, PULMONARY EMBOLUS PROTOCOL CLINICAL HISTORY: Shortness of breath. COMPARISON STUDY: Chest CT February 25, 2019. Chest radiograph August 24, 2020. TECHNIQUE: Following IV administration of 103 mL of Optiray-320, helical axial images of the chest we re obtained utilizing the pulmonary embolus protocol. Maximal intensity projections and sagittal and coronal reformats were viewed on an independent 3D workstation. IV contrast was administered withou t complication. Automated exposure control was utilized for the study. A dose lowering technique wa s utilized adhering to the principles of ALARA. CT DOSE: 410.31 mGy.cm FINDINGS: No pulmonary emboli are identified. Moderate cardiomegaly is noted. There is no pericardia l effusion. There is moderate coronary artery calcification. No pneumothorax or pleural effusion is n oted. There is no consolidation to suggest pneumonia. Central airways are patent. Moderate emphysema is present. A 1.2 cm solid left upper lobe nodule on image 154 of 286 has increased in size since CT of February 25, 2019 when it measured 1 cm. This nodule is lobulated. An irregular 8 mm left upper lobe n odule on image 192 is also mildly increased in size. There is no thoracic lymphadenopathy. There is a possible 1.2 cm medial left breast nodule on image 104. Upper abdomen is unremarkable. Gallbladder i s surgically absent. Hypodense enlargement of the adrenal gland is unchanged. This is benign. IMPRESSION: 1. No pulmonary emboli identified. 2. No acute process within the chest. 3. Increase in size of 1.2 cm and 0.8 cm left upper lobe nodules since chest CT of February 25, 2019. The se are highly suggestive of primary lung neoplasms and may reflect synchronous tumors. Pulmonary cons ultation is recommended. These findings will be called/faxed to the ordering provider at time of dict ation. 4. Possible 1.2 cm medial left breast nodule. Nonemergent mammogram and ultrasound are recommended. 5. Emphysema. ACT 112: Positive. There are findings on this exam that require communication between the performing entity and the patient following Patient Test Result Information Act ([place] Act 112) guidelines. Electronically signed by: Ezequiel Kevin M.D. 08/25/2020 8:20 AM
--- NOTE | 2020-08-25 08:45 | Ultrasound Report ---
RIGHT LOWER EXTREMITY VENOUS DOPPLER HISTORY: Right leg swelling. COMPARISON STUDY: None. FINDINGS: There is normal compressibility, flow, and augmentation within the right lower extremity de ep venous system. IMPRESSION: No DVT within the right lower extremity ACT 112: Negative or not required by law. Electronically signed by: Esvin Cardenas M.D. 08/25/2020 8:43 AM
[2020-08-25] MEDS: SERTRALINE HCL 50 MG TABLET PO SCH (09:00)
[2020-08-25] MEDS ORDERED: carvediloL 6.25 MG TAB PO SCH (09:00)
[2020-08-25] MEDS: ATORVASTATIN 10 MG TAB PO SCH (09:00)
[2020-08-25] MEDS ORDERED: NON-FORMULARY MEDICATION (Vit A,C And E-Lutein-Minerals [Ocuvite With Lutein] 1,000 unit-2 PO SCH (09:00)
[2020-08-25] MEDS: CYANOCOBALAMIN 500 MCG TABLET (VITAMIN B-12) PO SCH (09:01)
[2020-08-25] MEDS: ENOXAPARIN INJ 30 MG/0.3 ML SYR SQ SCH (09:01)
[2020-08-25] MEDS: CEROVITE ADV FORMULA TAB PO SCH (09:01)
--- NOTE | 2020-08-25 10:15 | Electrocardiogram Report ---
Test Reason : Blood Pressure : / mmHG Vent. Rate : 059 BPM Atrial Rate : 059 BPM P-R Int : 174 ms QRS Dur : 086 ms QT Int : 450 ms P-R-T Axes : 064 -01 059 degrees QTc Int : 445 ms Sinus bradycardia Otherwise normal ECG When compared with ECG of 27-FEB-2019 06:16, No significant change was found Confirmed by Jason Liu ([id number]) on 08/25/2020 10:15:24 AM Referred By: REFERRED SELF Confirmed By:Gonzales Liu
[2020-08-25] MEDS ORDERED: AZITHROMYCIN 250 MG TAB PO ONE (13:15)
[2020-08-25] MEDS ORDERED: predniSONE 20 MG TAB PO ONE (13:15)
[2020-08-25] MEDS ORDERED: ASPIRIN 81 MG ECTAB PO SCH (21:00)
[2020-08-25] MEDS ORDERED: carBAMazepine 200 MG TABLET PO SCH (21:00)
[2020-08-25] MEDS ORDERED: FLUTICASONE/VILANTEROL 100/25MCG 14 PUFFS/INHALER INH SCH (21:00)
[2020-08-26] MEDS ORDERED: LOSARTAN POTASSIUM 50 MG TAB PO SCH (09:00)
[2020-08-26] MEDS: GABAPENTIN 100 MG CAP PO SCH (09:05)
[2020-08-26] MEDS: guaiFENesin 600 MG TABCR PO SCH (09:05)
[2020-08-26] MEDS: SERTRALINE HCL 50 MG TABLET PO SCH (09:06)
[2020-08-26] MEDS: CYANOCOBALAMIN 500 MCG TABLET (VITAMIN B-12) PO SCH (09:06)
[2020-08-26] MEDS: ATORVASTATIN 10 MG TAB PO SCH (09:07)
[2020-08-26] MEDS: carvediloL 6.25 MG TAB PO SCH (09:08)
[2020-08-26] MEDS: ENOXAPARIN INJ 30 MG/0.3 ML SYR SQ SCH (09:08)
[2020-08-26] MEDS: CEROVITE ADV FORMULA TAB PO SCH (09:09)
[2020-08-26 09:35] LABS: Basophils # (auto) 0.01 K/uL (0-0.2); Basophils % (auto) 0.2 %; Eosinophils # (auto) 0.05 K/uL (0-0.5); Eosinophils % (auto) 0.9 %; Hematocrit (blood only) 35.8 % (37-47); Mean Corpuscular Hemoglobin 32.3 pg (25-34); Mean Corpuscular Hgb Conc 33.5 g/dL (32-36); Mean Corpuscular Volume 96.2 fL (80-100); Mean Platelet Volume 8.9 fL (7.4-10.4); Monocytes % (auto) 9.2 %; Neutrophils # (auto) 2.38 K/uL (1.4-6.5); Neutrophils % (auto) 43.7 %; Platelet Count 166 K/uL (130-400); RDW Standard Deviation 45.6 fL (36.4-46.3); Red Blood Count 3.72 M/uL (4.2-5.4); White Blood Count 5.44 K/uL (4.8-10.8)
[2020-08-26 10:00] LABS: Albumin Level 3.1 gm/dl (3.4-5.0); BUN Creatinine Ratio 29.8 (10-20); Creatinine Clr Calc Pharmacy 64.7 ml/min; Est GFR (African American) 96.9; Est GFR (Non-African American) 83.6; Potassium 3.5 mmol/L (3.5-5.1)
[2020-08-26] MEDS ORDERED: AZITHROMYCIN 250 MG TAB PO SCH (10:00)
[2020-08-26 10:03] LABS: Albumin Globulin Ratio 0.8 (0.9-2); Bilirubin,Total 0.3 mg/dl (0.2-1); Globulin 3.8 gm/dl (2.5-4.0); Total Protein 6.9 gm/dl (6.4-8.2)
[2020-08-26] MEDS ORDERED: predniSONE 20 MG TAB PO ONE (15:30)
--- NOTE | 2020-08-26 15:30 | Discharge Summary ---
Date of Service August 26, 2020 Admission HPI Per Admitting Provider History obtained from patient and records. Medical history significant for chronic diastolic heart failure (EF 60-64 %, TTE 2018), COPD/MARION on BIPAP/pulmonary hypertension as per records, PAD as per records, hypertension, seizure disorder, bladder cancer as per records, rheumatoid arthritis, dementia, past tobacco abuse. Last confinement February 2019 for ambulatory dysfunction, rhabdomyolysis. 1 week history of dry cough symptoms, substernal chest tightness, shortness of breath. No fever, no chills. Building occupants with COVID-19 as per patient. Patient denies direct exposure as she has not left her apartment. No unusual fluid retention. At the ER, some improvement of symptoms after breathing treatment. 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 Admission Exam Per Admitting Provider GENERAL: Comfortable, obese, slightly anxious, looks younger than stated age, no respiratory distress SKIN: Normal color, warm HEENT: Bespectacled, pink palpebral conjunctivae, no ptosis, dry buccal mucosa NECK : Supple, no tenderness CHEST : Decreased breath sounds, no tenderness HEART : Bradycardic, no obvious murmurs ABDOMEN: Some distention, nontender EXTREMITIES : RLE swelling, no LE tenderness, no other conspicuous deformities noted NEUROLOGIC : Coherent, no facial asymmetry, no other gross focality Principal Diagnosis COPD exacerbation Discharge Exam General: A&Ox1 HENT: NCAT, MMM, EOMI Eyes: PERRLA Neck: Supple, normal range of motion CVS: normal rate and rhythm Resp: b/l coarse breath sound Abdomen: Soft, nondistended and nontender Extremities: Absence of any edema Neuro: No gross focal deficits identified Skin: warm and dry, no rashes/lesions/errythema MSK: normal ROM, no joint swelling/erythema Discharge Data Allergies Allergy/AdvReac Type Severity Reaction Status Date / Time hydromorphone Allergy Severe SHORTNESS Verified 08/24/20 23:42 OF BREATH Consultations 08/24/20 23:21 ED Decision to Admit Stat Ordered Studies 08/25/20 00:20 CT angio chest PE protocol Urgent 08/25/20 07:35 US venous doppler LE RT Urgent Hospital Course (1) SOB (shortness of breath): Patient is a 84-year-old female who was admitted with shortness of breath. Patient usually uses 2 L of oxygen at home. She was requiring oxygen during the daytime initially in the course of the hospital. Patient was likely found to be in COPD exacerbation. X-ray without any concerns. Procalcitonin was negative. White count was within normal limit. Patient was afebrile. BMP was not concerning. She was weaned down to room air. She was started on a course of Zithromax and prednisone. On the day of discharge patient was doing okay. Hemodynamically she was doing fine. However patient does have early onset dementia. Patient was not able to tell me that she is in the hospital but was able to tell me the name of the president but not the year. I spoke with the daughter stated that she is starting to have dementia. Recommended her going to facility however patient and the daughter adamantly refused. He wanted to proceed with home with home health services and assistance services at home. On the day of discharge patient was stable. She was discharged in stable condition. Also had transthoracic echo which did not reveal any concerning fi ndings. Extremity Doppler was obtained which was negative for any concerning findings. Troponins were not concerning. Follow-up incidental pulmonary nodule findings in the left breast nodule for ma mmogram. Chest CTA 1. No pulmonary emboli identified. 2. No acute process within the chest. 3. Increase in size of 1.2 cm and 0.8 cm left upper lobe nodules since chest CT of February 25, 2019. These are highly suggestive of primary lung neoplasms and may reflect synchronous tumors. Pulmonary consultation is recommended. These findings will be called/faxed to the ordering provider at time of dictation. 4. Possible 1.2 cm medial left breast nodule. Nonemergent mammogram and ultrasound are recommended. 5. Emphysema. Total Time Total Time Spent Total Time Spent (In Minutes): 35 Discharge Plan Discharge Items Patient Disposition: Home - Home Health Services Reason For Visit: SOB Discharge Diagnosis: COPD exacerbation Activity: Resume your previous activity Non-emergency contact: Primary Care Provider Call non-emergency contact if: your symptoms worsen Follow-up/Referrals: Bettie Wyman DO [Primary Care Provider] - (Date & Time 08/31/2020 11:00 AMProvider Bettie M [place], [facility] ) Diet: Heart Healthy Addtl Attending Provider Instructions: Follow-up with your primary care physician within 1 week. An appointment will be requested. Take prednisone and Zithromax for the next 3 days and daily. Pending Studies at Discharge: No Stand-Alone Forms: My [facility], Smoking Cessation Medications and DC Order Prescriptions: New azithromycin [Zithromax] 250 mg tablet 250 mg PO DAILY 6 Days Qty: 3 RF: 0 prednisone 20 mg tablet 20 mg PO DAILY 3 Days Qty: 3 RF: 0 Continued carbamazepine [Tegretol] 200 mg Tablet 600 mg PO HS RF: 0 nitroglycerin [Nitrostat] 0.4 mg Tablet, Sublingual 0.4 mg Sublingual DIRECTED PRN (Reason: Chest Pain) RF: 0 losartan 100 mg Tablet 100 mg PO QAM RF: 0 cholecalciferol (vitamin D3) [Vitamin D3] 1,000 unit Capsule 1,000 unit PO QAM RF: 0 Ocuvite with Lutein 1,000 unit-200 mg-60 unit-2 mg Tablet 1 tab PO QAM RF: 0 Centrum 18-400 mg-mcg Tablet 1 tab PO QAM RF: 0 coQ10 (ubiquinol) 200 mg Capsule 400 mg PO QAM RF: 0 gabapentin 100 mg Capsule 100 mg PO BID RF: 0 Breo Ellipta 100-25 mcg/dose Blister With Device 1 inh INHALATION HS RF: 0 sertraline 100 mg tablet 150 mg PO QAM RF: 0 atorvastatin 10 mg tablet 10 mg PO DAILY RF: 0 carvedilol 6.25 mg tablet 6.25 mg PO BID RF: 0 cyanocobalamin (vitamin B-12) 1,000 mcg Tablet 1,000 mcg PO DAILY RF: 0 diclofenac sodium 1 % Gel 2 g TOPICAL BID PRN (Reason: Pain) RF: 0 biotin 2,500 mcg Capsule 2,500 mcg PO HS RF: 0 aspirin [Aspirin Low Dose] 81 mg Tablet,Delayed Release (Dr/Ec) 81 mg PO HS RF: 0 furosemide 40 mg tablet 40 mg PO DAILY RF: 0 Discharge Orders: Discharge Order (Routine); Ordered 08/26/20 Ordered By: Cabrera Quijano Admission Data Admit Date/Time: 08/25/20 16:40 Attending Provider: Cabrera Quijano Admit Provider: Al Camilo Primary Care Provider: Bettie Wyman Other Providers: Al Camilo
== END 2020-08-26 17:38 | disposition home health service (06) | DRG 191 ==
LOC: 2W 21:48 → ED 21:48 → 2W 08-25 00:59

== ENCOUNTER 2021-07-31 06:09 | Inpatient (IN) ==
--- NOTE | 2021-07-31 06:35 | Emergency Department Note ---
Impression & Plan ICH (intracerebral hemorrhage), Status post fall, Dementia, Acute dehydration, Acute hypokalemia, Left leg pain ED Provider Note NAME: HARRISON MCFARLANE AGE: 85 SEX: F : 1935 ARRIVES VIA: Ambulance INFORMANT: Patient, ED PROVIDER(S): [place] Darnell MD Chief Complaint: Fall, head and hip pain HPI: Patient does present status post fall. The patient states that she was resting but had fallen out of the left side of her bed striking the left side of her head. The patient does have some pain to the left hip and had difficulty with ambulation. The patient did not take nothing prior to arrival. The patient is a resident of the [facility]. Patient states that she has no chest back bilateral upper extremity or right lower extremity pain. The patient denies any fevers chills. The patient does not take any blood thinners. ROS: See HPI for pertinent positives and negatives. A total of 10 systems were reviewed and otherwise negative. Past medical history: See below Surgical history: See below Social history: See below Physical Exam: GENERAL: NAD, c-collar in place,non-toxic. EYE EXAM: Normal conjunctiva. PERRL, no anisocoria and EOM's grossly intact w/o pain. Head: Mild pain to the left cheondoism area with associated ecchymosis. No obvious deformity. OROPHARYNX: Moist mucus membranes. Edentulous. NECK: Supple, no nuchal rigidity, no adenopathy, mild left-sided paraspinal TTP without step-offs. Trachea midline. Not stridulous. LUNGS: Clear to auscultation. Normal chest wall mechanics. HEART: NSR, no MRG. ABDOMEN: Abdomen soft, non-tender, normo-active bowel sounds, no masses, no rebound or guarding. BACK: No CVA TTP. SKIN: No rashes and no bruising. UPPER EXTREMITIES: Upper extremities are grossly normal. No pain to palpation or obvious deformity. LOWER EXTREMITIES: Pain to palpation of her left hip and left tibia. Compartments are soft and without crepitus. No lacerations. No pain to palpation of right lower extremity. NEURO EXAM: A&O x3, cranial nerves II-XII grossly intact, normal speech, moves all 4 extremities but decreased range of motion left lower extremity secondary to pain. Differential diagnoses: Fracture, dislocation, contusion, intra-abdominal, pneumothorax, intrathoracic, intracranial, neurologic, compartment syndrome, rhabdomyolysis, as well as other pathologies. Course: Patient was seen and evaluated the bedside. Full history physical exam was performed. EKG interpreted by me Normal sinus rhythm, rate of 73, normal intervals, normal axis, nonspecific ST changes but no significant change from comparison 06/03/2021. Imaging Studies: See Below Cardiac monitoring: An order was placed for continuous cardiac monitoring. The monitor shows a rate of 72 with sinus rhythm. MDM: Patient did present from a assisted and does have a history of dementia with re cent fall. Patient did have CT of the head and cervical spine completed along with x-rays of the left hip and tibia. Blood work shows normal white count with mild anemia 10.7. Platelet count is unremarkable. Kidney function with prerenal azotemia and hypokalemia. Covid negative. I did receive a call from the reading radiologist Dr. Colvin who stated the patient did have an area of ICH. I did speak with the patient's daughter Ms. Diaz who is the power of mergers and acquisitions attorney. After discussion she does not want the patient transferred as the patient would not want brain surgery. I did speak with on-call neurology at [facility] in [place] for any additional recommendations. Dr. Mcgrath of [facility] neurology recommended blood pressure control with a goal less than 160 systolic, head of the bed elevated, no seizure prophylaxis and to check coags. I did speak with the on-call hospitalist BERTO Cardoza. Patient was to be admitted by Dr. Cotto. Plain films negative Critical Care: I have personally spent 37 minutes of critical care time in direct management of this patient. This includes bedside care, interpretation of diagnostic studies, and testing, discussion with consultants, patient, and family members, and other require inpatient management activities. This 37 minutes is in excess of all separately billable procedures. Past Med/Surg History Medical History Arthritis Chronic diastolic heart failure Chronic pulmonary hypertension COPD (chronic obstructive pulmonary disease) Dementia Depression Epilepsy HTN (hypertension) Macular degeneration Obstructive sleep apnea PAD (peripheral artery disease) Pulmonary nodule Rheumatoid arthritis Surgical History H/O: hysterectomy History of S/P hip replacement Status post Achilles tendon repair Status post appendectomy Status post cholecystectomy Status post hysterectomy Status post right knee replacement Family History Father Hypertension Mother Breast cancer Other Family history non-contributory Social History Smoking Status: Former smoker Tobacco Type: Cigarettes Cigarettes Per Day: 40; Second Hand Exposure: No; Hx Alcohol Use: No Hx Substance Use: No Preferred Language: Mongolian Communication Ability: Effective 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: No Beliefs That Will Affect Care: None marital status: Current Living Situation: Alone current occupational status: retired Feels Safe at Home: Yes Assistive Devices: Glasses and Walker Allergies Allergies Allergy/AdvReac Type Severity Reaction Status Date / Time hydromorphone Allergy Severe SHORTNESS Verified 07/31/21 07:22 OF BREATH Home Meds Home Medications Medication Instructions Recorded Confirmed carbamazepine 200 mg tablet 600 mg PO HS 09/22/18 07/31/21 (Tegretol) coQ10 (ubiquinol) 200 mg capsule 400 mg PO QAM 09/22/18 07/31/21 fluticasone furoate 100 1 inh INHALATION HS 09/22/18 07/31/21 mcg-vilanterol 25 mcg/dose inhalation powder (Breo Ellipta) gabapentin 100 mg capsule 100 mg PO BID 09/22/18 07/31/21 (Neurontin) losartan 100 mg tablet (Cozaar) 100 mg PO QAM 09/22/18 07/31/21 nitroglycerin 0.4 mg sublingual 0.4 mg SUBLINGUAL DIRECTED PRN 09/22/18 07/31/21 tablet (Nitrostat) sertraline 100 mg tablet (Zoloft) 150 mg PO QAM 01/26/19 07/31/21 atorvastatin 10 mg tablet (Lipitor) 10 mg PO DAILY@1700 01/15/20 07/31/21 carvedilol 6.25 mg tablet (Coreg) 6.25 mg PO BID 01/15/20 07/31/21 cyanocobalamin (vitamin B-12) 1,000 mcg PO QAM 01/15/20 07/31/21 1,000 mcg tablet (Vitamin B-12) diclofenac sodium 1 % topical gel 2 g TOPICAL BID PRN 01/15/20 07/31/21 (Voltaren Arthritis Pain) aspirin 81 mg tablet,delayed 81 mg PO HS 08/24/20 07/31/21 release (Aspirin Low Dose) furosemide 40 mg tablet (Lasix) 40 mg PO QAM 08/24/20 07/31/21 acetaminophen 500 mg tablet 1,000 mg PO Q6H PRN 06/03/21 07/31/21 (Acetaminophen Extra Strength) albuterol sulfate 90 mcg/actuation 2 puff INHALATION Q4H PRN 06/03/21 07/31/21 aerosol inhaler (ProAir HFA) alendronate 70 mg tablet (Fosamax) 70 mg PO WK 06/03/21 07/31/21 cholecalciferol (vitamin D3) 50 50 mcg PO DAILY@1700 06/03/21 07/31/21 mcg (2,000 unit) capsule (Vitamin D3) hydrochlorothiazide 12.5 mg capsule 12.5 mg PO QAM 06/03/21 07/31/21 lorazepam 0.5 mg tablet (Ativan) 0.5 mg SUBLINGUAL HS PRN 06/03/21 07/31/21 umeclidinium 62.5 mcg/actuation 1 inh INHALATION HS 06/03/21 07/31/21 blister powder for inhalation (Incruse Ellipta) vrqydemr-sch-lfrpq acid 300 1 tab PO DAILY 07/31/21 07/31/21 mcg-lycopene 600 mcg-lutein 300 mcg tablet (Centrum Silver Men) potassium chloride 20 mEq 20 meq PO DAILY 07/31/21 07/31/21 tablet,extended release Results & Data (ED) Vital Signs Vital Signs - 24 hr 07/31/21 06:16 07/31/21 07:00 07/31/21 07:18 Temperature 36.5 C Temperature Source Oral Pulse Rate 69 67 Pulse Rate from SpO2 Sensor 68 Respiratory Rate 18 13 Respiratory Effort / Characteristics Non-Labored Spontaneous Respiratory Depth Normal Blood Pressure 110/64 Blood Pressure Mean 79 Pulse Oximetry 100 90 Oxygen Delivery Method Nasal Cannula Room Air Oxygen Flow Rate 2 Sepsis Recent Fever Within 48 Hours No Sepsis New/Unexplained Change in Mental Status Yes Sepsis Action Taken by Nursing No Action Required 07/31/21 08:03 Temperature Temperature Source Pulse Rate 69 Pulse Rate from SpO2 Sensor Respiratory Rate 16 Respiratory Effort / Characteristics Respiratory Depth Blood Pressure 137/52 L Blood Pressure Mean 80 Pulse Oximetry 94 Oxygen Delivery Method Room Air Oxygen Flow Rate Sepsis Recent Fever Within 48 Hours Sepsis New/Unexplained Change in Mental Status Sepsis Action Taken by Longterm Medications Current Medication List: was personally reviewed by me Laboratory Data Attestation: I reviewed the patient's lab results. Result diagrams: 07/31/21 06:20 07/31/21 06:20 Lab Results 07/31/21 07/31/21 07/31/21 Range/Units 06:20 06:20 06:20 WBC 6.68 (4.8-10.8) K/uL RBC 3.48 L (4.2-5.4) M/uL Hgb 10.7 L (12.0-16.0) g/dL Hct 33.7 L (37-47) % MCV 96.8 (80-100) fL MCH 30.7 (25-34) pg MCHC 31.8 L (32-36) g/dL RDW Std Deviation 53.1 H (36.4-46.3) fL RDW Coeff of Marco 15.0 H (11.5-14.5) % Plt Count 268 (130-400) K/uL MPV 8.9 (7.4-10.4) fL Immature Gran % (Auto) 0.1 % Neut % (Auto) 47.4 % Lymph % (Auto) 40.0 % Barry % (Auto) 10.5 % Eos % (Auto) 1.6 % Baso % (Auto) 0.4 % Neut # (Auto) 3.16 (1.4-6.5) K/uL Lymph # (Auto) 2.67 (1.2-3.4) K/uL Barry # (Auto) 0.70 H (0.11-0.59) K/uL Eos # (Auto) 0.11 (0-0.5) K/uL Baso # (Auto) 0.03 (0-0.2) K/uL Immature Gran # (Auto) 0.01 (0.00-0.02) K/uL PT 10.6 (9.0-12.0) Seconds INR 1.0 (0.9-1.1) APTT 27.1 (21.0-31.0) Seconds PTT Ratio 1.0 Sodium 141 (136-145) mmol/L Potassium 3.1 L (3.5-5.1) mmol/L Chloride 108 H (98-107) mmol/L Carbon Dioxide 27 (21-32) mmol/L Anion Gap 6.0 (3-11) BUN 27 H (7-18) mg/dl Creatinine 0.62 (0.6-1.2) mg/dl Est Cr Clr Drug Dosing 61.5 ml/min Est GFR ( Amer) 94.6 ml/min Est GFR (Non-Af Amer) 81.6 ml/min BUN/Creatinine Ratio 43.9 H (10-20) Glucose 99 (70-99) mg/dl Calcium 9.2 (8.5-10.1) mg/dl Total Bilirubin 0.2 (0.2-1) mg/dl AST 20 (15-37) U/L ALT 19 (12-78) Alkaline Phosphatase 111 (45-117) U/L Total Protein 7.2 (6.4-8.2) gm/dl Albumin 3.0 L (3.4-5.0) gm/dl Globulin 4.2 H (2.5-4.0) gm/dl Albumin/Globulin Ratio 0.7 L (0.9-2) SARS-CoV-2, RNA, NAAT (NEGATIVE) 07/31/21 Range/Units 08:10 WBC (4.8-10.8) K/uL RBC (4.2-5.4) M/uL Hgb (12.0-16.0) g/dL Hct (37-47) % MCV (80-100) fL MCH (25-34) pg MCHC (32-36) g/dL RDW Std Deviation (36.4-46.3) fL RDW Coeff of Marco (11.5-14.5) % Plt Count (130-400) K/uL MPV (7.4-10.4) fL Immature Gran % (Auto) % Neut % (Auto) % Lymph % (Auto) % Barry % (Auto) % Eos % (Auto) % Baso % (Auto) % Neut # (Auto) (1.4-6.5) K/uL Lymph # (Auto) (1.2-3.4) K/uL Barry # (Auto) (0.11-0.59) K/uL Eos # (Auto) (0-0.5) K/uL Baso # (Auto) (0-0.2) K/uL Immature Gran # (Auto) (0.00-0.02) K/uL PT (9.0-12.0) Seconds INR (0.9-1.1) APTT (21.0-31.0) Seconds PTT Ratio Sodium (136-145) mmol/L Potassium (3.5-5.1) mmol/L Chloride (98-107) mmol/L Carbon Dioxide (21-32) mmol/L Anion Gap (3-11) BUN (7-18) mg/dl Creatinine (0.6-1.2) mg/dl Est Cr Clr Drug Dosing ml/min Est GFR ( Amer) ml/min Est GFR (Non-Af Amer) ml/min BUN/Creatinine Ratio (10-20) Glucose (70-99) mg/dl Calcium (8.5-10.1) mg/dl Total Bilirubin (0.2-1) mg/dl AST (15-37) U/L ALT (12-78) Alkaline Phosphatase (45-117) U/L Total Protein (6.4-8.2) gm/dl Albumin (3.4-5.0) gm/dl Globulin (2.5-4.0) gm/dl Albumin/Globulin Ratio (0.9-2) SARS-CoV-2, RNA, NAAT NEGATIVE (NEGATIVE) Administered Medications Discontinued Medications Sodium Chloride (Nss) 500 mls @ 100 mls/hr IV .Q5H MIKE Stop: 08/30/21 07:59 Last Infusion: 07/31/21 10:18 Dose: 0 mls/hr Documented by: [id number] Admin: 07/31/21 08:12 Dose: 100 mls/hr Documented by: [id number] Imaging Data Radiologist's Impression: Hip/Pelvis X-Ray 07/31/21 06:50 SINGLE VIEW PELVIS; 2 VIEWS LEFT HIP CLINICAL HISTORY: Fall with left hip injury. FINDINGS: An AP view of the pelvis with AP and crosstable lateral views of the left hip are compared to study dated 07/12/2021. The skeletal structures are osteopenic. There is no radiographic evidence of acute fracture involving the hips or bony pelvis. A bipolar right hip arthroplasty is in near-anatomic alignment. No periprosthetic lucency is identified. Arthritis is seen in the left hip with advanced degenerative joint space narrowing. Sclerotic change is noted in the sacroiliac joints. The overlying soft tissues are within normal limits. Numerous phleboliths are seen in the pelvis. IMPRESSION: No acute bony abnormality is identified. Electronically signed by: Leo Trujillo M.D. 07/31/2021 8:28 AM Knee X-Ray 07/31/21 06:50 LEFT KNEE 2 VIEWS; LEFT TIBIA AND FIBULA 2 VIEWS CLINICAL HISTORY: Fall with left knee and leg pain. FINDINGS: AP and crosstable lateral views of the left knee with AP and crosstable lateral views of the left tibia and fibula are obtained. No prior studies are available for comparison at the time of dictation. The skeletal structures are osteopenic. No fracture is seen at the knee joint. There is no radiographic evidence of left tibial or fibular fracture. A left knee arthroplasty is in near-anatomic alignment. There has been undersurface remodeling of the patella. There is no evidence of knee joint effusion. The ankle mortise is maintained noting degenerative change. There are small dorsal and plantar calcaneal enthesophytes. Soft tissue edema is seen throughout the visualized left lower extremity. IMPRESSION: 1. There is no radiographic evidence of fracture at the left knee joint. 2. There is no radiographic evidence of left tibial or fibular fracture. 3. Diffuse soft tissue swelling. 4. A left knee arthroplasty is in near-anatomic alignment. Electronically signed by: Leo Trujillo M.D. 07/31/2021 8:26 AM Tibia/Fibula X-Ray 07/31/21 06:50 LEFT KNEE 2 VIEWS; LEFT TIBIA AND FIBULA 2 VIEWS CLINICAL HISTORY: Fall with left knee and leg pain. FINDINGS: AP and crosstable lateral views of the left knee with AP and crosstable lateral views of the left tibia and fibula are obtained. No prior studies are available for comparison at the time of dictation. The skeletal structures are osteopenic. No fracture is seen at the knee joint. There is no radiographic evidence of left tibial or fibular fracture. A left knee arthroplasty is in near-anatomic alignment. There has been undersurface remodeling of the patella. There is no evidence of knee joint effusion. The ankl e mortise is maintained noting degenerative change. There are small dorsal and plantar calcaneal enthesophytes. Soft tissue edema is seen throughout the visualized left lower extremity. IMPRESSION: 1. There is no radiographic evidence of fracture at the left knee joint. 2. There is no radiographic evidence of left tibial or fibular fracture. 3. Diffuse soft tissue swelling. 4. A left knee arthroplasty is in near-anatomic alignment. Electronically signed by: Loe Trujillo M.D. 07/31/2021 8:[address] 07/31/21 06:51 CT cervical spine wo con CT DOSE: 935.43 mGy.cm CLINICAL HISTORY: 85 years-old Female with Trauma. Acute head and neck injury status post fall COMPARISON: Head CT of same day, CT cervical spine 07/12/2021 TECHNIQUE: Multiple axial CT images of the cervical spine were obtained without contrast. A dose lowering technique was utilized adhering to the principles of ALARA. FINDINGS: Demineralized appearance of the bones. Unchanged grade 1 anterolisthesis C2 on C3 which is likely degenerative. Multilevel intervertebral disc space narrowing, moderate to severe at C3-C4 and moderate at C4-C5 and C5- C6. Moderate to severe multilevel facet arthrosis. Developmental incomplete bony fusion involves the posterior arch of C1. There is mild mid cervical dextroscoliosis. No acute cervical spine fracture or subluxation identified. There is multilevel central canal or neural foraminal stenosis. There is no pneumothorax. Unremarkable soft tissues. Severe atherosclerotic plaque of the carotid arteries. IMPRESSION: No acute cervical spine fracture or subluxation. ACT 112: Negative or not required by law. The above report was generated using voice recognition software. It may contain grammatical, syntax or spelling errors. Electronically signed by: Thierry Lewis M.D. 07/31/2021 7:[address] 07/31/21 06:51 CT head/brain wo con CLINICAL HISTORY: 85 years-old Female with Trauma. Acute head and neck injury status post trauma TECHNIQUE: Multiple axial CT images of the head were obtained without contrast. A dose lowering technique was utilized adhering to the principles of ALARA. COMPARISON: CT cervical spine of same day, head CT 07/14/2021 FINDINGS: There is a thin acute 10 x 7 x 9 mm hemorrhagic focus on image 71 of series 301 the region of the posterior medial left parieto-occipital distribution (superior aspect of the left occipital lobe). There is no midline shift, intracranial mass, hydrocephalus, or acute territorial infarct. Age-related involutional changes. White matter hypodensities suggest chronic microvascular ischemic disease. Cerebral vascular calcifications. The calvarium is intact. Prior bilateral lens repair. 7 mm left frontal sinus osteoma. The paranasal sinuses, mastoid air cells, and middle ear cavities are clear. Developmental incomplete bony fusion involves the posterior arch of C1. IMPRESSION: 10 mm acute hemorrhagic focus within the region of the left parietal occipital lobe is new from 07/14/2021. This may or represent a small cortical contusion versus subdural hematoma. Findings were discussed with Dr. Darnell on 06/30/2022 at 7:43 AM. ACT 112: Negative or not required by law. The above report was generated using voice recognition software. It may contain grammatical, syntax or spelling errors. Electronically signed by: Thierry Lewis M.D. 07/31/2021 7:45 AM Discharge Plan Visit Data Chief Complaint: Fall Stated Complaint: Fall ED Provider: [place] Darnell Discharge Problem: ICH (intracerebral hemorrhage), Status post fall, Dementia, Acute dehydration, Acute hypokalemia, Left leg pain Patient Disposition: Admitted As Inpatient Discharge Instructions Interventions: ED Discharge Assessment Last Done: 07/31/21 09:51
[2021-07-31 06:59] LABS: Basophils # (auto) 0.03 K/uL (0-0.2); Basophils % (auto) 0.4 %; Eosinophils # (auto) 0.11 K/uL (0-0.5); Eosinophils % (auto) 1.6 %; Hematocrit (blood only) 33.7 % (37-47); Hemoglobin 10.7 g/dL (12.0-16.0); Immature Granulocytes # (auto) 0.01 K/uL (0.00-0.02); Immature Granulocytes % (auto) 0.1 %; Lymphocytes # (auto) 2.67 K/uL (1.2-3.4); Mean Corpuscular Hemoglobin 30.7 pg (25-34); Mean Corpuscular Hgb Conc 31.8 g/dL (32-36); Mean Corpuscular Volume 96.8 fL (80-100); Mean Platelet Volume 8.9 fL (7.4-10.4); Monocytes % (auto) 10.5 %; Neutrophils # (auto) 3.16 K/uL (1.4-6.5); Neutrophils % (auto) 47.4 %; Platelet Count 268 K/uL (130-400); RDW Standard Deviation 53.1 fL (36.4-46.3); Red Blood Count 3.48 M/uL (4.2-5.4); White Blood Count 6.68 K/uL (4.8-10.8)
[2021-07-31 07:07] LABS: BUN Creatinine Ratio 43.9 (10-20); Calcium 9.2 mg/dl (8.5-10.1); Creatinine Clr Calc Pharmacy 61.5 ml/min; Est GFR (African American) 94.6 ml/min; Est GFR (Non-African American) 81.6 ml/min; Potassium 3.1 mmol/L (3.5-5.1)
[2021-07-31 07:10] LABS: Albumin Globulin Ratio 0.7 (0.9-2); Bilirubin,Total 0.2 mg/dl (0.2-1); Globulin 4.2 gm/dl (2.5-4.0); Total Protein 7.2 gm/dl (6.4-8.2)
--- NOTE | 2021-07-31 07:46 | CT Scan Report ---
CT head/brain wo con CLINICAL HISTORY: 85 years-old Female with Trauma. Acute head and neck injury status post trauma TECHNIQUE: Multiple axial CT images of the head were obtained without contrast. A dose lowering tech nique was utilized adhering to the principles of ALARA. COMPARISON: CT cervical spine of same day, head CT 07/14/2021 FINDINGS: There is a thin acute 10 x 7 x 9 mm hemorrhagic focus on image 71 of series 301 the region of the pos terior medial left parieto-occipital distribution (superior aspect of the left occipital lobe). There is no midline shift, intracranial mass, hydrocephalus, or acute territorial infarct. Age-related inv olutional changes. White matter hypodensities suggest chronic microvascular ischemic disease. Cerebra l vascular calcifications. The calvarium is intact. Prior bilateral lens repair. 7 mm left frontal si nus osteoma. The paranasal sinuses, mastoid air cells, and middle ear cavities are clear. Development al incomplete bony fusion involves the posterior arch of C1. IMPRESSION: 10 mm acute hemorrhagic focus within the region of the left parietal occipital lobe is ne w from 07/14/2021. This may or represent a small cortical contusion versus subdural hematoma. Findings were discussed with Dr. Darnell on 06/30/2022 at 7:43 AM. ACT 112: Negative or not required by law. The above report was generated using voice recognition software. It may contain grammatical, syntax o r spelling errors. Electronically signed by: Thierry Lewis M.D. 07/31/2021 7:45 AM
--- NOTE | 2021-07-31 07:50 | CT Scan Report ---
CT cervical spine wo con CT DOSE: 935.43 mGy.cm CLINICAL HISTORY: 85 years-old Female with Trauma. Acute head and neck injury status post fall COMPARISON: Head CT of same day, CT cervical spine 07/12/2021 TECHNIQUE: Multiple axial CT images of the cervical spine were obtained without contrast. A dose low ering technique was utilized adhering to the principles of ALARA. FINDINGS: Demineralized appearance of the bones. Unchanged grade 1 anterolisthesis C2 on C3 which is likely degenerative. Multilevel intervertebral disc space narrowing, moderate to severe at C3-C4 and moderate at C4-C5 and C5-C6. Moderate to severe multilevel facet arthrosis. Developmental incomplete bony fusion involves the posterior arch of C1. There is mild mid cervical dextroscoliosis. No acute c ervical spine fracture or subluxation identified. There is multilevel central canal or neural foramin al stenosis. There is no pneumothorax. Unremarkable soft tissues. Severe atherosclerotic plaque of the carotid art eries. IMPRESSION: No acute cervical spine fracture or subluxation. ACT 112: Negative or not required by law. The above report was generated using voice recognition software. It may contain grammatical, syntax o r spelling errors. Electronically signed by: Thierry Lewis M.D. 07/31/2021 7:49 AM
[2021-07-31] MEDS ORDERED: SODIUM CHLORIDE 0.9% 500 ML IV SCH (08:00)
--- NOTE | 2021-07-31 08:27 | XRay Report ---
LEFT KNEE 2 VIEWS; LEFT TIBIA AND FIBULA 2 VIEWS CLINICAL HISTORY: Fall with left knee and leg pain. FINDINGS: AP and crosstable lateral views of the left knee with AP and crosstable lateral views of th e left tibia and fibula are obtained. No prior studies are available for comparison at the time of di ctation. The skeletal structures are osteopenic. No fracture is seen at the knee joint. There is no r adiographic evidence of left tibial or fibular fracture. A left knee arthroplasty is in near-anatomic alignment. There has been undersurface remodeling of the patella. There is no evidence of knee joint effusion. The ankle mortise is maintained noting degenerative change. There are small dorsal and melita ntar calcaneal enthesophytes. Soft tissue edema is seen throughout the visualized left lower extremit y. IMPRESSION: 1. There is no radiographic evidence of fracture at the left knee joint. 2. There is no radiographic evidence of left tibial or fibular fracture. 3. Diffuse soft tissue swelling. 4. A left knee arthroplasty is in near-anatomic alignment. Electronically signed by: Leo Trujillo M.D. 07/31/2021 8:26 AM
--- NOTE | 2021-07-31 08:29 | XRay Report ---
SINGLE VIEW PELVIS; 2 VIEWS LEFT HIP CLINICAL HISTORY: Fall with left hip injury. FINDINGS: An AP view of the pelvis with AP and crosstable lateral views of the left hip are compared to study dated 07/12/2021. The skeletal structures are osteopenic. There is no radiographic evidence of acute fracture involving the hips or bony pelvis. A bipolar right hip arthroplasty is in near-darrell omic alignment. No periprosthetic lucency is identified. Arthritis is seen in the left hip with advan meron degenerative joint space narrowing. Sclerotic change is noted in the sacroiliac joints. The overl vahe soft tissues are within normal limits. Numerous phleboliths are seen in the pelvis. IMPRESSION: No acute bony abnormality is identified. Electronically signed by: Leo Trujillo M.D. 07/31/2021 8:28 AM
[2021-07-31 08:52] LABS: Partial Thromboplastin Time 27.1 Seconds (21.0-31.0); Prothrombin Time 10.6 Seconds (9.0-12.0)
--- NOTE | 2021-07-31 09:08 | History & Physical Report ---
Date of Service July 31, 2021 Assessment & Plan (1) ICH (intracerebral hemorrhage): (2) Status post fall: Plan: -Admit to telemetry -Patient presenting from the [facility] after she fell out of bed this morning and struck the left side of her head. -In the ED, CT head shows 10 mm acute hemorrhagic focus within the region of the left parietal occipital lobe -Patient is currently hemodynamically stable without focal neurological deficit. -Findings were discussed with patient's daughter, Louann. She states that she would not want her mother to undergo any aggressive intervention for the intracranial hemorrhage. She is aware and willing to accept that the bleed may get worse. -ED physician spoke with Dr. Mcgrath, [facility] neurosurgery, for recommendations -keep HOB elevated at 45 degrees at all times, maintain SBP <160 -Repeat CT head in 6 hours -Neurochecks every 2 hours -Seizure precautions (3) Chronic diastolic heart failure: Plan: -Currently appears euvolemic -Continue home furosemide (4) HTN (hypertension): Plan: -BP currently controlled, continue carvedilol, HCTZ, losartan, furosemide (5) Epilepsy: Plan: -Continue Tegretol (6) PAD (peripheral artery disease): Plan: -Holding ASA due to ICH -Continue statin (7) DVT prophylaxis: Plan: -SCDs due to ICH History of Present Illness Chief Complaint: Fall Primary Care Provider: VANDANA 85-year-old female with PMH COPD, chronic diastolic CHF, pulmonary hypertension, HTN, PAD, osteoporosis, history of seizure disorder, and other problems listed below who presents the ED for evaluation after falling out of bed this morning. Patient has some mild underlying confusion. Reports that whenever she rolled over in bed this morning, she rolled too far and onto the ground. She struck the left side of her head. EMS was called and patient was brought to the ED for further evaluation. Patient denies any loss of consciousness. No headache or blurred vision. Patient reports she has been falling a lot recently however cannot remember the last time she fell. Patient was recently treated for a UTI on 07/18, she was placed on Keflex for a pansensitive Proteus. Patient has chronic lower extremity edema which is unchanged from baseline. She denies chest pain or shortness of breath. No abdominal pain, nausea, vomiting, diarrhea. Denies urinary symptoms. In the ED, head CT shows a 10 mm acute hemorrhagic focus within the region of the left parietal occipital lobe. Findings were discussed with patient's daughter who states that she does not wish for her mother to undergo any aggressive interventions or procedures. Patient is currently hemodynamically stable. Labs are unremarkable. Allergies Allergy/AdvReac Type Severity Reaction Status Date / Time hydromorphone Allergy Severe SHORTNESS Verified 07/31/21 07:22 OF BREATH Home Medications Medication Instructions Recorded Confirmed Type carbamazepine 200 mg tablet 600 mg PO HS 09/22/18 07/31/21 History (Tegretol) coQ10 (ubiquinol) 200 mg capsule 400 mg PO QAM 09/22/18 07/31/21 History fluticasone furoate 100 1 inh INHALATION HS 09/22/18 07/31/21 History mcg-vilanterol 25 mcg/dose inhalation powder (Breo Ellipta) gabapentin 100 mg capsule 100 mg PO BID 09/22/18 07/31/21 History (Neurontin) losartan 100 mg tablet (Cozaar) 100 mg PO QAM 09/22/18 07/31/21 History nitroglycerin 0.4 mg sublingual 0.4 mg SUBLINGUAL DIRECTED PRN 09/22/18 07/31/21 History tablet (Nitrostat) sertraline 100 mg tablet (Zoloft) 150 mg PO QAM 01/26/19 07/31/21 History atorvastatin 10 mg tablet (Lipitor) 10 mg PO DAILY@1700 01/15/20 07/31/21 History carvedilol 6.25 mg tablet (Coreg) 6.25 mg PO BID 01/15/20 07/31/21 History cyanocobalamin (vitamin B-12) 1,000 mcg PO QAM 01/15/20 07/31/21 History 1,000 mcg tablet (Vitamin B-12) diclofenac sodium 1 % topical gel 2 g TOPICAL BID PRN 01/15/20 07/31/21 History (Voltaren Arthritis Pain) aspirin 81 mg tablet,delayed 81 mg PO HS 08/24/20 07/31/21 History release (Aspirin Low Dose) furosemide 40 mg tablet (Lasix) 40 mg PO QAM 08/24/20 07/31/21 History acetaminophen 500 mg tablet 1,000 mg PO Q6H PRN 06/03/21 07/31/21 History (Acetaminophen Extra Strength) albuterol sulfate 90 mcg/actuation 2 puff INHALATION Q4H PRN 06/03/21 07/31/21 History aerosol inhaler (ProAir HFA) alendronate 70 mg tablet (Fosamax) 70 mg PO WK 06/03/21 07/31/21 History cholecalciferol (vitamin D3) 50 50 mcg PO DAILY@1700 06/03/21 07/31/21 History mcg (2,000 unit) capsule (Vitamin D3) hydrochlorothiazide 12.5 mg capsule 12.5 mg PO QAM 06/03/21 07/31/21 History lorazepam 0.5 mg tablet (Ativan) 0.5 mg SUBLINGUAL HS PRN 06/03/21 07/31/21 History umeclidinium 62.5 mcg/actuation 1 inh INHALATION HS 06/03/21 07/31/21 History blister powder for inhalation (Incruse Ellipta) [id number]-[id number]-[id number] acid 300 1 tab PO DAILY 07/31/21 07/31/21 History mcg-lycopene 600 mcg-lutein 300 mcg tablet (Centrum Silver Men) potassium chloride 20 mEq 20 meq PO DAILY 07/31/21 07/31/21 History tablet,extended release Past Med/Surg History Medical History Arthritis Chronic diastolic heart failure Chronic pulmonary hypertension COPD (chronic obstructive pulmonary disease) Dementia Depression Epilepsy HTN (hypertension) Macular degeneration Obstructive sleep apnea PAD (peripheral artery disease) Pulmonary nodule Rheumatoid arthritis Surgical History H/O: hysterectomy History of S/P hip replacement Status post Achilles tendon repair Status post appendectomy Status post cholecystectomy Status post hysterectomy Status post right knee replacement Family History Father Hypertension Mother Breast cancer Other Family history non-contributory Social History Smoking Status: Former smoker Tobacco Type: Cigarettes Cigarettes Per Day: 40; Second Hand Exposure: No; Hx Alcohol Use: No Hx Substance Use: No Preferred Language: Senegalese Communication Ability: Effective Self Rising Flour Mixer Required: No Beliefs That Will Affect Care: None marital status: Current Living Situation: Alone current occupational status: retired Feels Safe at Home: Yes Assistive Devices: Glasses and Walker Review of Systems Review of Systems: ROS per HPI, all other systems reviewed and negative Physical Exam Constitutional: WD/WN, vitals as above Eyes: PERRL, conjunctivae normal, anicteric sclerae ENMT: external ear and nose normal, oropharynx normal Respiratory: normal respiratory effort, lungs clear to auscultation Cardiovascular: Rate/Rhythm: regular rate and regular rhythm Vessels: normal peripheral pulses Extremities: + edema (+2 edema BLE) Gastrointestinal (Abdomen): normal bowel sounds, soft, nontender, no hepatosplenomegaly Musculoskeletal: no cyanosis or clubbing, extremities motor strength 5/5 Skin: no rashes, warm and dry Contusion noted over left temporal area Neurologic: PERRL, EOMI, accommodation nl, no face palsy, no dysarthria moves all extremities and awake; no focal motor deficits Motor/Sensory: no pronator drift Cranial Nerves: able to elevate shoulders bilaterally Coordination: normal [id number]-[id number] test Psychiatric: Orientation: alert, oriented to person and oriented to place (States that she is at "[facility]); + not oriented to time Cognition: + recent memory not intact Insight: + limited insight Results & Data Results & Data ([facility]) Vital Signs (Past 12 Hours) Vital Signs Temp Pulse Resp BP Pulse Ox 07/31/21 08:03 69 16 137/52 L 94 07/31/21 07:00 67 13 90 07/31/21 06:16 36.5 C 69 18 110/64 100 Laboratory Results Short CBC 07/31/21 Range/Units 06:20 WBC 6.68 (4.8-10.8) K/uL Hgb 10.7 L (12.0-16.0) g/dL Hct 33.7 L (37-47) % Plt Count 268 (130-400) K/uL BMP 07/31/21 06:20 Sodium 141 Potassium 3.1 L Chloride 108 H Carbon Dioxide 27 BUN 27 H Creatinine 0.62 Glucose 99 Calcium 9.2 Liver Function 07/31/21 Range/Units 06:20 Total Bilirubin 0.2 (0.2-1) mg/dl AST 20 (15-37) U/L ALT 19 (12-78) Alkaline Phosphatase 111 (45-117) U/L Albumin 3.0 L (3.4-5.0) gm/dl Diagnostic Findings Hip/Pelvis X-Ray 07/31/21 06:50 SINGLE VIEW PELVIS; 2 VIEWS LEFT HIP CLINICAL HISTORY: Fall with left hip injury. FINDINGS: An AP view of the pelvis with AP and crosstable lateral views of the left hip are compared to study dated 07/12/2021. The skeletal structures are osteopenic. There is no radiographic evidence of acute fracture involving the hips or bony pelvis. A bipolar right hip arthroplasty is in near-anatomic alignment. No periprosthetic lucency is identified. Arthritis is seen in the left hip with advanced degenerative joint space narrowing. Sclerotic change is noted in the sacroiliac joints. The overlying soft tissues are within normal limits. Numerous phleboliths are seen in the pelvis. IMPRESSION: No acute bony abnormality is identified. Electronically signed by: Leo Trujillo M.D. 07/31/2021 8:28 AM Knee X-Ray 07/31/21 06:50 LEFT KNEE 2 VIEWS; LEFT TIBIA AND FIBULA 2 VIEWS CLINICAL HISTORY: Fall with left knee and leg pain. FINDINGS: AP and crosstable lateral views of the left knee with AP and crosstable lateral views of the left tibia and fibula are obtained. No prior studies are available for comparison at the time of dictation. The skeletal structures are osteopenic. No fracture is seen at the knee joint. There is no radiographic evidence of left tibial or fibular fracture. A left knee arthroplasty is in near-anatomic alignment. There has been undersurface remodeling of the patella. There is no evidence of knee joint effusion. The ankle mortise is maintained noting degenerative change. There are small dorsal and plantar calcaneal enthesophytes. Soft tissue edema is seen throughout the visualized left lower extremity. IMPRESSION: 1. There is no radiographic evidence of fracture at the left knee joint. 2. There is no radiographic evidence of left tibial or fibular fracture. 3. Diffuse soft tissue swelling. 4. A left knee arthroplasty is in near-anatomic alignment. Electronically signed by: Leo Trujillo M.D. 07/31/2021 8:26 AM Tibia/Fibula X-Ray 07/31/21 06:50 LEFT KNEE 2 VIEWS; LEFT TIBIA AND FIBULA 2 VIEWS CLINICAL HISTORY: Fall with left knee and leg pain. FINDINGS: AP and crosstable lateral views of the left knee with AP and crosstable lateral views of the left tibia and fibula are obtained. No prior studies are available for comparison at the time of dictation. The skeletal structures are osteopenic. No fracture is seen at the knee joint. There is no radiographic evidence of left tibial or fibular fracture. A left knee arthroplasty is in near-anatomic alignment. There has been undersurface remodeling of the patella. There is no evidence of knee joint effusion. The ankle mortise is maintained noting degenerative change. There are small dorsal and plantar calcaneal enthesophytes. Soft tissue edema is seen throughout the visualized left lower extremity. IMPRESSION: 1. There is no radiographic evidence of fracture at the left knee joint. 2. There is no radiographic evidence of left tibial or fibular fracture. 3. Diffuse soft tissue swelling. 4. A left knee arthroplasty is in near-anatomic alignment. Electronically signed by: Leo Trujillo M.D. 07/31/2021 8:[address] 07/31/21 06:51 CT cervical spine wo con CT DOSE: 935.43 mGy.cm CLINICAL HISTORY: 85 years-old Female with Trauma. Acute head and neck injury status post fall COMPARISON: Head CT of same day, CT cervical spine 07/12/2021 TECHNIQUE: Multiple axial CT images of the cervical spine were obtained without contrast. A dose lowering technique was utilized adhering to the principles of ALARA. FINDINGS: Demineralized appearance of the bones. Unchanged grade 1 anterolisthesis C2 on C3 which is likely degenerative. Multilevel intervertebral disc space narrowing, moderate to severe at C3-C4 and moderate at C4-C5 and C5- C6. Moderate to severe multilevel facet arthrosis. Developmental incomplete bony fusion involves the posterior arch of C1. There is mild mid cervical dextroscoliosis. No acute cervical spine fracture or subluxation identified. There is multilevel central canal or neural foraminal stenosis. There is no pneumothorax. Unremarkable soft tissues. Severe atherosclerotic plaque of the carotid arteries. IMPRESSION: No acute cervical spine fracture or subluxation. ACT 112: Negative or not required by law. The above report was generated using voice recognition software. It may contain grammatical, syntax or spelling errors. Electronically signed by: Thierry Lewis M.D. 07/31/2021 7:[address] 01/03/22 06:51 CT head/brain wo con CLINICAL HISTORY: 85 years-old Female with Trauma. Acute head and neck injury status post trauma TECHNIQUE: Multiple axial CT images of the head were obtained without contrast. A dose lowering technique was utilized adhering to the principles of ALARA. COMPARISON: CT cervical spine of same day, head CT 07/14/2021 FINDINGS: There is a thin acute 10 x 7 x 9 mm hemorrhagic focus on image 71 of series 301 the region of the posterior medial left parieto-occipital distribution (superior aspect of the left occipital lobe). There is no midline shift, intracranial mass, hydrocephalus, or acute territorial infarct. Age-related involutional changes. White matter hypodensities suggest chronic microvascular ischemic disease. Cerebral vascular calcifications. The calvarium is intact. Prior bilateral lens repair. 7 mm left frontal sinus osteoma. The paranasal sinuses, mastoid air cells, and middle ear cavities are clear. Developmental incomplete bony fusion involves the posterior arch of C1. IMPRESSION: 10 mm acute hemorrhagic focus within the region of the left parietal occipital lobe is new from 07/14/2021. This may or represent a small cortical contusion versus subdural hematoma. Findings were discussed with Dr. Darnell on 06/30/2022 at 7:43 AM. ACT 112: Negative or not required by law. The above report was generated using voice recognition software. It may contain grammatical, syntax or spelling errors. Electronically signed by: Thierry Lewis M.D. 07/31/2021 7:45 AM Code Status & VTE Plan Code Status Patient is a DNR as per my discussion with her daughter, Louann. VTE Prophylaxis Plan VTE Prophylaxis will be ordered: Yes Supervising Physician Co-Signing Physician Notes I have seen and examined the patient and have discussed the case with the provider above. I agree with the assessment and plan as stated with the following exceptions. The patients is an 85 yo F with a h/o dementia who suffered two mechanical falls at [facility] per her report. She cannot give details about this but does remember the falls and reports no LOC. Workup reveals a SDH that is 10mm without midline shift. Daughter is POA and understanding that we have no neurosurgical services available at this facility. Patient is oriented to person only. Patient denies any headache, leg pain, urinary symptoms, infectious symptoms such as cough or SOB. She reports ambulating with a "wheelchair for safety" and goes on to describe the [facility] facility. She is moving all extremities equally. Normal fundoscopic exam bilaterally with limitations as pupils are not dilated. EOMI, PERRL, CN 2-12 intact, sensation intact throughout. No other gross focal deficit. She has an evolving area of ecchymosis over her left temporal area without laceration and some minimal erythema on her forehead in the brow line. She is mentating clearly and is able to follow instructions. Could not elicit DTRs as patient is tensing with exam. Greenberg catheter in place draining light yellow urine. Lungs are CTA throughout and 3/6 CORNELL is heard along the LSB. Patient states this is known. Trace edema with slightly pinkish tint and skin is mildly warm to touch. Overall this is an 85 yo dementia patient s/p mechanical fall on aspirin who has a traumatic SDH. Per POA will not pursue transfer to tertiary care center and will manage this conservatively. Cont serial neuro exams, seizure precautions. Avoid all anticoagulant or antiplatelet therapy at this time. Keep HOB>45 degrees and SBP <180. Repeat CT head in 6 hours and again if any mental status changes or new neurologic deficits come about. Otherwise cont plan as above. Notably on both HCTZ and Lasix chronically. Monitor daily BMP. Once she demonstrates stability, may consider moving her around but for now would keep he r mostly bedrest with SCDs in place. Radha Cotto DO [facility] Hospitalist
[2021-07-31] MEDS ORDERED: LORazepam 1 MG/2 ML VIAL IV PRN (09:52)
[2021-07-31] MEDS ORDERED: ACETAMINOPHEN 325 MG TAB PO PRN (09:52)
--- NOTE | 2021-07-31 13:04 | CT Scan Report ---
HEAD CT NONCONTRAST CT DOSE: 537.48 mGy.cm HISTORY: f/u intracranial hemorrhage TECHNIQUE: Multiaxial CT images of the head were performed without the use of intravenous contrast. A utomated exposure control was utilized for this study. A dose lowering technique was utilized adheri ng to the principles of ALARA. Comparison: Head CT 07/31/2021. Findings: The paranasal sinuses and mastoid air cells are clear. The calvarium and skull base are int act. There is no mass, midline shift, acute infarct. White matter hypodensity is nonspecific but sugg estive of microvascular ischemic change. The ventricles and sulci demonstrate mild age-related involu tional changes. Redemonstration of a 10 mm focus of intracranial hemorrhage within the left posterior parietal lobe. Impression: Redemonstration of the left posterior parietal lobe intraparenchymal hematoma. This is stable to slig htly increased in size compared to the prior study. Continued [address] follow-up recommended. ACT 112: Negative or not required by law. Electronically signed by: Esvin Cardenas M.D. 07/31/2021 1:03 PM
--- NOTE | 2021-07-31 14:12 | Electrocardiogram Report ---
Test Reason : Blood Pressure : / mmHG Vent. Rate : 073 BPM Atrial Rate : 073 BPM P-R Int : 162 ms QRS Dur : 066 ms QT Int : 424 ms P-R-T Axes : 059 015 068 degrees QTc Int : 467 ms Poor data quality, interpretation may be adversely affected Normal sinus rhythm Nonspecific ST and T wave abnormality Abnormal ECG When compared with ECG of 03-JUN-2021 08:34, No significant change was found Confirmed by Mervin Souza ([id number]) on 07/31/2021 2:11:53 PM Referred By: VANDANA Confirmed By:Mervin Souza
[2021-07-31] MEDS ORDERED: POTASSIUM CHLORIDE CRTAB 20 MEQ TABCR PO ONE (15:03)
[2021-07-31] MEDS: GABAPENTIN 100 MG CAP PO SCH ×2 (15:08→20:55)
[2021-07-31] MEDS: carvediloL 6.25 MG TAB PO SCH ×2 (15:08→20:55)
[2021-07-31] MEDS: LOSARTAN POTASSIUM 50 MG TAB PO SCH (15:08)
[2021-07-31] MEDS: SERTRALINE HCL 50 MG TABLET PO SCH (15:08)
[2021-07-31] MEDS: hydroCHLOROthiazide 25 MG TAB PO SCH (15:09)
[2021-07-31] MEDS: POTASSIUM CHLORIDE CRTAB 20 MEQ TABCR PO SCH (15:09)
[2021-07-31] MEDS: FUROSEMIDE 40 MG TAB PO SCH (15:10)
[2021-07-31] MEDS: ATORVASTATIN 10 MG TAB PO SCH (19:57)
[2021-07-31] MEDS: FLUTICASONE/VILANTEROL 100/25MCG 14 PUFFS/INHALER INH SCH (20:54)
[2021-07-31] MEDS: UMECLIDINIUM BROMIDE 62.5MCG/BLISTER 7 PUFFS/INHALER INH SCH (20:55)
[2021-07-31] MEDS: carBAMazepine 200 MG TABLET PO SCH (20:55)
[2021-08-01 05:44] LABS: Hematocrit (blood only) 30.6 % (37-47); Hemoglobin 9.7 g/dL (12.0-16.0); Mean Corpuscular Hemoglobin 30.7 pg (25-34); Mean Corpuscular Hgb Conc 31.7 g/dL (32-36); Mean Corpuscular Volume 96.8 fL (80-100); Mean Platelet Volume 8.7 fL (7.4-10.4); Platelet Count 219 K/uL (130-400); RDW Coefficient of Variation 15.2 % (11.5-14.5); RDW Standard Deviation 53.9 fL (36.4-46.3); Red Blood Count 3.16 M/uL (4.2-5.4)
[2021-08-01 06:23] LABS: BUN Creatinine Ratio 32.5 (10-20); Calcium 8.3 mg/dl (8.5-10.1); Creatinine Clr Calc Pharmacy 59.5 ml/min; Est GFR (African American) 93.6 ml/min; Est GFR (Non-African American) 80.8 ml/min; Potassium 3.1 mmol/L (3.5-5.1)
--- NOTE | 2021-08-01 08:15 | CT Scan Report ---
HEAD CT NONCONTRAST CT DOSE: 537.48 mGy.cm HISTORY: Follow-up intracranial hemorrhage. f/u head CT TECHNIQUE: Multiaxial CT images of the head were performed without the use of intravenous contrast. A utomated exposure control was utilized for this study. A dose lowering technique was utilized adheri ng to the principles of ALARA. Comparison: Head CT 07/31/2021. Findings: The paranasal sinuses and mastoid air cells are clear. Stable 1 cm focus of intraparenchyma l hemorrhage within the left posterior parietal lobe on image 17. No additional areas of intracranial hemorrhage identified. Mild atrophy and microvascular ischemic changes are again noted. There is no mass, midline shift, acute infarct. Impression: Stable 1 cm focus of intraparenchymal hemorrhage within the left posterior parietal lobe. Continued 2 [address] follow-up recommended. ACT 112: Negative or not required by law. Electronically signed by: Esvin Cardenas M.D. 08/01/2021 8:14 AM
[2021-08-01] MEDS: GABAPENTIN 100 MG CAP PO SCH ×2 (09:53→21:33)
[2021-08-01] MEDS: SERTRALINE HCL 50 MG TABLET PO SCH (09:53)
[2021-08-01] MEDS: POTASSIUM CHLORIDE CRTAB 20 MEQ TABCR PO SCH ×3 (09:54→16:48)
[2021-08-01] MEDS: hydroCHLOROthiazide 25 MG TAB PO SCH (09:55)
[2021-08-01] MEDS: carvediloL 6.25 MG TAB PO SCH ×2 (09:56→21:34)
[2021-08-01] MEDS: FUROSEMIDE 40 MG TAB PO SCH (09:57)
[2021-08-01] MEDS: LOSARTAN POTASSIUM 50 MG TAB PO SCH (09:57)
[2021-08-01] MEDS: ATORVASTATIN 10 MG TAB PO SCH (16:45)
--- NOTE | 2021-08-01 20:17 | Hospitalist Progress Note ---
Date of Service August 01, 2021 Assessment & Plan (1) ICH (intracerebral hemorrhage): Plan: stable SDH on repeat head imaging this am. She remains neurologically stable. Spoke with neurosurgery at [facility] who reports that typically the most amount of brain edema happens around 5 days. I discussed this with her daughter. It is most reasonable that we have PT/OT see her and send her back to the [facility] at this point. Cont keeping HOB >45 degrees. Cont to maintain SBP <160. Cont neuro checks and seizure precautions. She takes Tegretol for epilepsy. Bleed may make a seizure more likely so cont precuations. (2) Status post fall: Plan: Plan as above and await PT and OT recommendations. Fall risk preventions reviewed with her daughter by phone. Avoid sedating medications such as Ativan if possible, etc. (3) Chronic diastolic heart failure: Plan: -Currently appears euvolemic -Continue home furosemide (4) HTN (hypertension): Plan: -BP currently controlled, continue carvedilol, HCTZ, losartan, furosemide. (5) Epilepsy: Plan: -Continue Tegretol (6) PAD (peripheral artery disease): Plan: -Holding ASA due to ICH -Continue statin -she has an outpatient follow-up with her Neurologist in Jul. Would discuss the adding of aspirin back to her regimen at that time. (7) DVT prophylaxis: Plan: -SCDs due to ICH DNR/DNI Dispo-the [facility] pending PT/OT recs. Will plan to repeat head CT upon discharge. Radha Cotto DO [facility]ist Admission and Anticipated Discharge Date Admission Date: July 31, 2021 Subjective 85 yo F s/p fall fron standing height with subsequent traumatic ICH. Aspirin on hold CT head this am demonstrates stability Neurologically she is at baseline and denies any headaches Denies visual changes Denies leg pain Denies CP or SOB Reports she is upset with nursing because they cannot "locate her daughter" Review of Systems Review of Systems: All systems were reviewed and negative except as indicated in subjective above. Physical Exam Physical Exam: CONSTITUTIONAL: WNWD, vitals as above, generally well- appearing, NAD EYES: EOMI bilaterally, pupils are round and equal bilaterally, normal conju nctivae, no scleral icterus ENT: external ear and nose normal, MMM NECK: trachea midline RESPIRATORY: clear to auscultation bilaterally, no crackles, rales or wheezes, normal respiratory effort CARDIOVASCULAR: regular rate and rhythm, S1 and 2 heard without murmurs, gallops or rubs, no JVD, no peripheral edema GASTROINTESTINAL: soft, nontender, ND, no guarding MUSCULOSKELETAL: strength 5/5 throughout, head is normocephalic and atraumatic, SKIN: warm and dry NEUROLOGIC: No facial palsy, no dysarthria. CN 2-12 grossly intact, no sensory deficit, normal cognition, normal speech, no tremor, no gross focal deicit. PSYCHIATRIC: alert cooperative and oriented to person, place and time. Results & Data Results & Data ([facility]) Vital Signs (Past 12 Hours) Vital Signs Temp Pulse Pulse Pulse Resp BP Pulse Ox 08/01/21 19:14 37.4 C 69 18 126/66 94 08/01/21 18:00 75 08/01/21 15:33 37.1 C 67 14 112/59 L 96 08/01/21 14:09 37.2 C 70 18 113/59 L 95 08/01/21 12:00 37.2 C 66 20 96/58 L 94 Laboratory Results Short CBC 08/01/21 Range/Units 05:06 WBC 6.40 (4.8-10.8) K/uL Hgb 9.7 L (12.0-16.0) g/dL Hct 30.6 L (37-47) % Plt Count 219 (130-400) K/uL BMP 08/01/21 05:06 Sodium 141 Potassium 3.1 L Chloride 108 H Carbon Dioxide 26 BUN 21 H Creatinine 0.64 Glucose 88 Calcium 8.3 L Diagnostic Findings Head CT 08/01/21 08:[address] DOSE: 537.48 mGy.cm HISTORY: Follow-up intracranial hemorrhage. f/u head CT TECHNIQUE: Multiaxial CT images of the head were performed without the use of intravenous contrast. Automated exposure control was utilized for this study. A dose lowering technique was utilized adhering to the principles of ALARA. Comparison: Head CT 07/31/2021. Findings: The paranasal sinuses and mastoid air cells are clear. Stable 1 cm focus of intraparenchymal hemorrhage within the left posterior parietal lobe on image 17. No additional areas of intracranial hemorrhage identified. Mild atrophy and microvascular ischemic changes are again noted. There is no mass, midline shift, acute infarct. Impression: Stable 1 cm focus of intraparenchymal hemorrhage within the left posterior parietal lobe. Continued [address] follow-up recommended. ACT 112: Negative or not required by law. Electronically signed by: Esvin Cardenas M.D. 08/01/2021 8:14 AM Medications Administered Current Inpatient Medications Acetaminophen (Acetaminophen 325 Mg Tab) 650 mg PO Q4H PRN PRN Reason: Pain or Fever Stop: 08/30/21 09:51 Atorvastatin Calcium (Atorvastatin 10 Mg Tab) 10 mg PO DAILY@1700 [facility] Stop: 08/30/21 16:59 Last Admin: 08/01/21 16:45 Dose: 10 mg Documented by: Carbamazepine (Carbamazepine 200 Mg Tablet) 600 mg PO [facility] Stop: 08/30/21 20:59 Last Admin: 07/31/21 20:55 Dose: 600 mg Documented by: Carvedilol (Carvedilol 6.25 Mg Tab) 6.25 mg PO BID [facility] Stop: 08/30/21 10:29 Last Admin: 08/01/21 09:56 Dose: Not Given Documented by: Fluticasone/Vilanterol (Fluticasone/Vilanterol 100/25mcg 14 Puffs/Inhaler) 1 puffs INH [facility] Stop: 08/30/21 20:59 Last Admin: 07/31/21 20:54 Dose: 1 puffs Documented by: Furosemide (Furosemide 40 Mg Tab) [facility] Stop: 08/30/21 10:29 Last Admin: 08/01/21 09:57 Dose: 40 mg Documented by: Gabapentin (Gabapentin 100 Mg Cap) 100 mg PO BID [facility] Stop: 08/30/21 10:29 Last Admin: 08/01/21 09:53 Dose: 100 mg Documented by: Hydrochlorothiazide (Hydrochlorothiazide 25 Mg Tab) [facility] Stop: 08/30/21 10:29 Last Admin: 08/01/21 09:55 Dose: 12.5 mg Documented by: Lorazepam (Ativan) 1 mg in 2 mls @ 2 mls/min IV Q4H PRN PRN Reason: seizure Stop: 08/30/21 09:51 Losartan Potassium (Losartan Potassium 50 Mg Tab) 100 mg PO QAM [facility] Stop: 08/30/21 10:29 Last Admin: 08/01/21 09:57 Dose: 100 mg Documented by: Potassium Chloride (Potassium Chloride Crtab 20 Meq Tabcr) 20 meq PO DAILY [facility] Stop: 08/30/21 10:29 Last Admin: 08/01/21 09:54 Dose: 20 meq Documented by: Sertraline HCl (Sertraline Hcl 50 Mg Tablet) 150 mg PO QAM [facility] Stop: 08/30/21 10:29 Last Admin: 08/01/21 09:53 Dose: 150 mg Documented by: Umeclidinium [place] (Umeclidinium [place] 62.5mcg/Blister 7 Puffs/Inhaler) 1 puffs INH HS [facility] Stop: 08/30/21 20:59 Last Admin: 07/31/21 20:55 Dose: 1 puffs Documented by: (1) ICH (intracerebral hemorrhage) Encounter type: initial encounter Intracerebral hemorrhage etiology: traumatic Laterality: left
[2021-08-01] MEDS: FLUTICASONE/VILANTEROL 100/25MCG 14 PUFFS/INHALER INH SCH (21:31)
[2021-08-01] MEDS: UMECLIDINIUM BROMIDE 62.5MCG/BLISTER 7 PUFFS/INHALER INH SCH (21:32)
[2021-08-01] MEDS: carBAMazepine 200 MG TABLET PO SCH (21:34)
--- NOTE | 2021-08-02 07:56 | CT Scan Report ---
HEAD CT NONCONTRAST CT DOSE: 1074.96 mGy.cm HISTORY: Follow-up intracranial hematoma. TECHNIQUE: Multiaxial CT images of the head were performed without the use of intravenous contrast. A utomated exposure control was utilized for this study. A dose lowering technique was utilized adheri ng to the principles of ALARA. Comparison: Head CT 08/01/2021. Findings: Mild motion artifact. The paranasal sinuses and mastoid air cells are clear. Stable 1 cm hy perdense focus within the left posterior parietal lobe. This favors a small intraparenchymal hematoma . No additional areas of hemorrhage identified within the brain. Mild atrophy and microvascular ische brown changes are again noted. Impression: Stable 1 cm hypodense focus within the left posterior parietal lobe. This favors a small intraparench ymal hematoma. [address] follow-up recommended to ensure stability. ACT 112: Negative or not required by law. Electronically signed by: Esvin Cardenas M.D. 08/02/2021 7:54 AM
[2021-08-02] MEDS: carvediloL 6.25 MG TAB PO SCH (07:59)
[2021-08-02] MEDS: GABAPENTIN 100 MG CAP PO SCH (07:59)
[2021-08-02] MEDS: FUROSEMIDE 40 MG TAB PO SCH (07:59)
[2021-08-02] MEDS: hydroCHLOROthiazide 25 MG TAB PO SCH (07:59)
[2021-08-02] MEDS: POTASSIUM CHLORIDE CRTAB 20 MEQ TABCR PO SCH (08:00)
[2021-08-02] MEDS: SERTRALINE HCL 50 MG TABLET PO SCH (08:00)
[2021-08-02] MEDS: LOSARTAN POTASSIUM 50 MG TAB PO SCH (08:00)
[2021-08-02 10:25] LABS: BUN Creatinine Ratio 31.1 (10-20); Calcium 8.4 mg/dl (8.5-10.1); Creatinine Clr Calc Pharmacy 61.4 ml/min; Est GFR (African American) 94.6 ml/min; Est GFR (Non-African American) 81.6 ml/min; Potassium 3.9 mmol/L (3.5-5.1)
--- NOTE | 2021-08-02 13:36 | Discharge Summary ---
Date of Service August 02, 2021 Admission HPI Per Admitting Provider 85-year-old female with PMH COPD, chronic diastolic CHF, pulmonary hypertension, HTN, PAD, osteoporosis, history of seizure disorder, and other problems listed below who presents the ED for evaluation after falling out of bed this morning. Patient has some mild underlying confusion. Reports that whenever she rolled over in bed this morning, she rolled too far and onto the ground. She struck the left side of her head. EMS was called and patient was brought to the ED for further evaluation. Patient denies any loss of consciousness. No headache or blurred vision. Patient reports she has been falling a lot recently however cannot remember the last time she fell. Patient was recently treated for a UTI on 07/18, she was placed on Keflex for a pansensitive Proteus. Patient has chronic lower extremity edema which is unchanged from baseline. She denies chest pain or shortness of breath. No abdominal pain, nausea, vomiting, diarrhea. Denies urinary symptoms. In the ED, head CT shows a 10 mm acute hem orrhagic focus within the region of the left parietal occipital lobe. Findings were discussed with patient's daughter who states that she does not wish for her mother to undergo any aggressive interventions or procedures. Patient is currently hemodynamically stable. Labs are unremarkable. Admission Exam Per Admitting Provider Constitutional: WD/WN, vitals as above Eyes: PERRL, conjunctivae normal, anicteric sclerae ENMT: external ear and nose normal, oropharynx normal Respiratory: normal respiratory effort, lungs clear to auscultation Cardiovascular: Rate/Rhythm: regular rate and regular rhythm Vessels: normal peripheral pulses Extremities: + edema (+2 edema BLE) Gastrointestinal (Abdomen): normal bowel sounds, soft, nontender, no hepatosplenomegaly Musculoskeletal: no cyanosis or clubbing, extremities motor strength 5/5 Skin: no rashes, warm and dry Contusion noted over left temporal area Neurologic: PERRL, EOMI, accommodation nl, no face palsy, no dysarthria moves all extremities and awake; no focal motor deficits Motor/Sensory: no pronator drift Cranial Nerves: able to elevate shoulders bilaterally Coordination: normal lvnjic-dx-saeh test Psychiatric: Orientation: alert, oriented to person and oriented to place (States that she is at "[facility]); + not oriented to time Cognition: + recent memory not intact Insight: + limited insight Principal Diagnosis Traumatic intracranial hemorrhage Discharge Exam CONSTITUTIONAL: WNWD, vitals as above, generally well-appearing, NAD EYES: EOMI bilaterally, pupils are round and equal bilaterally, normal conjunctivae, no scleral icterus ENT: external ear and nose normal, MMM NECK: trachea midline RESPIRATORY: clear to auscultation bilaterally, no crackles, rales or wheezes, normal respiratory effort CARDIOVASCULAR: regular rate and rhythm, S1 and 2 heard without murmurs, gallops or rubs, no JVD, no peripheral edema GASTROINTESTINAL: soft, nontender, ND, no guarding MUSCULOSKELETAL: strength 5/5 throughout, head is normocephalic and atraumatic, SKIN: warm and dry NEUROLOGIC: No facial palsy, no dysarthria. CN 2-12 grossly intact, no sensory deficit, normal cognition, normal speech, no tremor, no gross focal deicit. PSYCHIATRIC: alert cooperative and oriented to person, place and time. Discharge Data Allergies Allergy/AdvReac Type Severity Reaction Status Date / Time hydromorphone Allergy Severe SHORTNESS Verified 07/31/21 07:22 OF BREATH Consultations 07/31/21 08:13 ED Decision to Admit Stat Ordered Studies Laboratory Results WBC 6.40 K/uL (4.8-10.8) 08/01/21 05:06 RBC 3.16 M/uL (4.2-5.4) L 08/01/21 05:06 Hgb 9.7 g/dL (12.0-16.0) L 08/01/21 05:06 Hct 30.6 % (37-47) L 08/01/21 05:06 MCV 96.8 fL (80-100) 08/01/21 05:06 MCH 30.7 pg (25-34) 08/01/21 05:06 MCHC 31.7 g/dL (32-36) L 08/01/21 05:06 RDW Std Deviation 53.9 fL (36.4-46.3) H 08/01/21 05:06 RDW Coeff of Marco 15.2 % (11.5-14.5) H 08/01/21 05:06 Plt Count 219 K/uL (130-400) 08/01/21 05:06 MPV 8.7 fL (7.4-10.4) 08/01/21 05:06 Immature Gran % (Auto) 0.1 % 07/31/21 06:20 Neut % (Auto) 47.4 % 07/31/21 06:20 Lymph % (Auto) 40.0 % 07/31/21 06:20 Greene % (Auto) 10.5 % 07/31/21 06:20 Eos % (Auto) 1.6 % 07/31/21 06:20 Baso % (Auto) 0.4 % 07/31/21 06:20 Neut # (Auto) 3.16 K/uL (1.4-6.5) 07/31/21 06:20 Lymph # (Auto) 2.67 K/uL (1.2-3.4) 07/31/21 06:20 Greene # (Auto) 0.70 K/uL (0.11-0.59) H 07/31/21 06:20 Eos # (Auto) 0.11 K/uL (0-0.5) 07/31/21 06:20 Baso # (Auto) 0.03 K/uL (0-0.2) 07/31/21 06:20 Immature Gran # (Auto) 0.01 K/uL (0.00-0.02) 07/31/21 06:20 PT 10.6 Seconds (9.0-12.0) 07/31/21 06:20 INR 1.0 (0.9-1.1) 07/31/21 06:20 APTT 27.1 Seconds (21.0-31.0) 07/31/21 06:20 PTT Ratio 1.0 07/31/21 06:20 Sodium 142 mmol/L (136-145) 08/02/21 09:35 Potassium 3.9 mmol/L (3.5-5.1) D 08/02/21 09:35 Chloride 110 mmol/L (98-107) H 08/02/21 09:35 Carbon Dioxide 28 mmol/L (21-32) 08/02/21 09:35 Anion Gap 4.0 (3-11) 08/02/21 09:35 BUN 19 mg/dl (7-18) H 08/02/21 09:35 Creatinine 0.62 mg/dl (0.6-1.2) 08/02/21 09:35 Est Cr Clr Drug Dosing 61.4 ml/min 08/02/21 09:35 Est GFR ( Amer) 94.6 ml/min 08/02/21 09:35 Est GFR (Non-Af Amer) 81.6 ml/min 08/02/21 09:35 BUN/Creatinine Ratio 31.1 (10-20) H 08/02/21 09:35 Glucose 81 mg/dl (70-99) 08/02/21 09:35 Calcium 8.4 mg/dl (8.5-10.1) L 08/02/21 09:35 Total Bilirubin 0.2 mg/dl (0.2-1) 07/31/21 06:20 AST 20 U/L (15-37) 07/31/21 06:20 ALT 19 (12-78) 07/31/21 06:20 Alkaline Phosphatase 111 U/L (45-117) 07/31/21 06:20 Total Protein 7.2 gm/dl (6.4-8.2) 07/31/21 06:20 Albumin 3.0 gm/dl (3.4-5.0) L 07/31/21 06:20 Globulin 4.2 gm/dl (2.5-4.0) H 07/31/21 06:20 Albumin/Globulin Ratio 0.7 (0.9-2) L 07/31/21 06:20 SARS-CoV-2, RNA, NAAT NEGATIVE (NEGATIVE) 07/31/21 08:10 Impressions Hip/Pelvis X-Ray 07/31/21 06:50 SINGLE VIEW PELVIS; 2 VIEWS LEFT HIP CLINICAL HISTORY: Fall with left hip injury. FINDINGS: An AP view of the pelvis with AP and crosstable lateral views of the left hip are compared to study dated 07/12/2021. The skeletal structures are osteopenic. There is no radiographic evidence of acute fracture involving the hips or bony pelvis. A bipolar right hip arthroplasty is in near-anatomic alignment. No periprosthetic lucency is identified. Arthritis is seen in the left hip with advanced degenerative joint space narrowing. Sclerotic change is noted in the sacroiliac joints. The overlying soft tissues are within normal limits. Numerous phleboliths are seen in the pelvis. IMPRESSION: No acute bony abnormality is identified. Electronically signed by: Leo Trujillo M.D. 07/31/2021 8:28 AM Knee X-Ray 07/31/21 06:50 LEFT KNEE 2 VIEWS; LEFT TIBIA AND FIBULA 2 VIEWS CLINICAL HISTORY: Fall with left knee and leg pain. FINDINGS: AP and crosstable lateral views of the left knee with AP and crosstable lateral views of the left tibia and fibula are obtained. No prior studies are available for comparison at the time of dictation. The skeletal structures are osteopenic. No fracture is seen at the knee joint. There is no radiographic evidence of left tibial or fibular fracture. A left knee arthroplasty is in near-anatomic alignment. There has been undersurface remodeling of the patella. There is no evidence of knee joint effusion. The ankle mortise is maintained noting degenerative change. There are small dorsal and plantar calcaneal enthesophytes. Soft tissue edema is seen throughout the visualized left lower extremity. IMPRESSION: 1. There is no radiographic evidence of fracture at the left knee joint. 2. There is no radiographic evidence of left tibial or fibular fracture. 3. Diffuse soft tissue swelling. 4. A left knee arthroplasty is in near-anatomic alignment. Electronically signed by: Leo Trujillo M.D. 07/31/2021 8:26 AM Tibia/Fibula X-Ray 07/31/21 06:50 LEFT KNEE 2 VIEWS; LEFT TIBIA AND FIBULA 2 VIEWS CLINICAL HISTORY: Fall with left knee and leg pain. FINDINGS: AP and crosstable lateral views of the left knee with AP and cr osstable lateral views of the left tibia and fibula are obtained. No prior studies are available for comparison at the time of dictation. The skeletal structures are osteopenic. No fracture is seen at the knee joint. There is no radiographic evidence of left tibial or fibular fracture. A left knee arthroplasty is in near-anatomic alignment. There has been undersurface remodeling of the patella. There is no evidence of knee joint effusion. The ankle mortise is maintained noting degenerative change. There are small dorsal and plantar calcaneal enthesophytes. Soft tissue edema is seen throughout the visualized left lower extremity. IMPRESSION: 1. There is no radiographic evidence of fracture at the left knee joint. 2. There is no radiographic evidence of left tibial or fibular fracture. 3. Diffuse soft tissue swelling. 4. A left knee arthroplasty is in near-anatomic alignment. Electronically signed by: Leo Trujillo M.D. 07/31/2021 8:[address] 07/31/21 06:51 CT cervical spine wo con CT DOSE: 935.43 mGy.cm CLINICAL HISTORY: 85 years-old Female with Trauma. Acute head and neck injury status post fall COMPARISON: Head CT of same day, CT cervical spine 07/12/2021 TECHNIQUE: Multiple axial CT images of the cervical spine were obtained without contrast. A dose lowering technique was utilized adhering to the principles of ALARA. FINDINGS: Demineralized appearance of the bones. Unchanged grade 1 anterolisthesis C2 on C3 which is likely degenerative. Multilevel intervertebral disc space narrowing, moderate to severe at C3-C4 and moderate at C4-C5 and C5- C6. Moderate to severe multilevel facet arthrosis. Developmental incomplete bony fusion involves the posterior arch of C1. There is mild mid cervical dextrosco liosis. No acute cervical spine fracture or subluxation identified. There is multilevel central canal or neural foraminal stenosis. There is no pneumothorax. Unremarkable soft tissues. Severe atherosclerotic plaque of the carotid arteries. IMPRESSION: No acute cervical spine fracture or subluxation. ACT 112: Negative or not required by law. The above report was generated using voice recognition software. It may contain grammatical, syntax or spelling errors. Electronically signed by: Thierry Lewis M.D. 07/31/2021 7:[address] 08/02/21 07:[address] DOSE: 1074.96 mGy.cm HISTORY: Follow-up intracranial hematoma. TECHNIQUE: Multiaxial CT images of the head were performed without the use of intravenous contrast. Automated exposure control was utilized for this study. A dose lowering technique was utilized adhering to the principles of ALARA. Comparison: Head CT 08/01/2021. Findings: Mild motion artifact. The paranasal sinuses and mastoid air cells are clear. Stable 1 cm hyperdense focus within the left posterior parietal lobe. This favors a small intraparenchymal hematoma. No additional areas of hemorrhage identified within the brain. Mild atrophy and microvascular ischemic changes are again noted. Impression: Stable 1 cm hypodense focus within the left posterior parietal lobe. This favors a small intraparenchymal hematoma. [address] follow-up recommended to ensure stability. ACT 112: Negative or not required by law. Electronically signed by: Esvin Cardenas M.D. 08/02/2021 7:54 AM Hospital Course (1) ICH (intracerebral hemorrhage): stable SDH on repeat head imaging this am. She remains neurologically stable. Spoke with neurosurgery at [facility] who reports that typically the most amount of brain edema happens around 5 days. I discussed this with her daughter. It is most reasonable that we have PT/OT see her and send her back to the [facility] at this point. Cont keeping HOB >45 degrees. Cont to maintain SBP <160. Cont neuro checks and seizure precautions. She takes Tegretol for epilepsy. Bleed may make a seizure more likely so precautions were continued. She had no events this hospital stay. Her CT was repeated [id number] and remained stable. It is recommended to stay off aspirin or other blood thinners until follow-up with neurology later in July. (2) Status post fall: Plan as above and await PT and OT recommendations. Fall risk preventions reviewed with her daughter by phone. Avoid sedating medications such as Ativan if possible, etc. (3) Chronic diastolic heart failure: -Currently appears euvolemic -Continue home furosemide (4) HTN (hypertension): -BP currently controlled, continue carvedilol, HCTZ, losartan, furosemide. (5) Epilepsy: -Continue Tegretol (6) PAD (peripheral artery disease): -Holding ASA due to ICH -Continue statin -she has an outpatient follow-up with her Neurologist in Jul. Would discuss the adding of aspirin back to her regimen at that time. (7) DVT prophylaxis: -SCDs due to ICH DNR/DNI Dispo-the [facility] after clearance by PT and OT. Therapy has recommended she have continued PT and OT at home. I also recommended to her daughter to avoid sedating medication such as lorazepam and gabapentin which are on her regimen and to monitor for dehydration or other things that may cause additional fall risks such as her current diuretic regimen of Lasix and HCTZ. She verbalized understanding with intent to comply. Follow-up with primary care doctor to discuss these changes and fall risk precautions within 1 week. DO Guru Bacaduke [facility] Hospitalist Total Time Total Time Spent Total Time Spent (In Minutes): 60 Discharge Plan Discharge Items Patient Disposition: Personal Half-Way Reason For Visit: FALL,ICH Discharge Diagnosis: Traumatic intracranial hemorrhage Condition on Discharge: Good Activity: Resume your previous activity Non-emergency contact: Primary Care Provider Call non-emergency contact if: you have any medication questions, your symptoms worsen and your pain is not controlled Follow-up/Referrals: [facility] [Provider Group] - 08/08/21 11:30 am (BERTO Samano) Nabor Rocha MD [Physician] - 08/24/21 2:40 am VANDANA, [Primary Care Provider] - Diet: Heart Healthy Addtl Attending Provider Instructions: Please take all medications as instructed on discharge as below. Is recommended that you follow-up with your primary care doctor within 1 week of discharge from the hospital to ensure you are still doing well. You have suffered a traumatic intracranial bleed which appears to be stable however, the most concerning time for bleeding or swelling after trauma in the head is the first 5 days. For any change in mental status and acute CT of the head is recommended and immediate medical attention. Please continue to avoid any aspirin or other blood thinners at this time until you have followed up with your neurologist. It is recommended that you continue with physical and Occupational Therapy efforts after returning back to the personal assisted It was a pleasure taking care of you! Please call if you have any questions or problems. You can reach a [facility] hospitalist on duty at [facility] 24 hours a day by calling [phone]. Take care of yourself. Radha Cotto, [facility] Center[facility] Pending Studies at Discharge: No Stand-Alone Forms: My [facility] Skilled Items Patient informed of condition?: Yes DNR: Yes Discharge Level of Care: Other Communicable Disease: No Discharge Prognosis: Stable Lines: None Urinary Catheter: No Medications and DC Order Prescriptions: Continued carbamazepine [Tegretol] 200 mg Tablet 600 mg PO HS RF: 0 nitroglycerin [Nitrostat] 0.4 mg Tablet, Sublingual 0.4 mg Sublingual DIRECTED PRN (Reason: Chest Pain) RF: 0 losartan [Cozaar] 100 mg Tablet 100 mg PO QAM RF: 0 coQ10 (ubiquinol) 200 mg Capsule 400 mg PO QAM RF: 0 gabapentin [Neurontin] 100 mg Capsule 100 mg PO BID RF: 0 Breo Ellipta 100-25 mcg/dose Blister With Device 1 inh INHALATION HS RF: 0 sertraline [Zoloft] 100 mg tablet 150 mg PO QAM RF: 0 atorvastatin [Lipitor] 10 mg tablet 10 mg PO DAILY@1700 RF: 0 carvedilol [Coreg] 6.25 mg tablet 6.25 mg PO BID RF: 0 cyanocobalamin (vitamin B-12) [Vitamin B-12] 1,000 mcg Tablet 1,000 mcg PO QAM RF: 0 furosemide [Lasix] 40 mg tablet 40 mg PO QAM RF: 0 alendronate [Fosamax] 70 mg tablet 70 mg PO WK RF: 0 acetaminophen [Acetaminophen Extra Strength] 500 mg Tablet 1,000 mg PO Q6H PRN (Reason: Pain) RF: 0 lorazepam [Ativan] 0.5 mg tablet 0.5 mg sublingual HS PRN (Reason: Anxiety) RF: 0 hydrochlorothiazide 12.5 mg capsule 12.5 mg PO QAM RF: 0 albuterol sulfate [ProAir HFA] 90 mcg/actuation HFA aerosol inhaler 2 puff INHALATION Q4H PRN (Reason: cough,shortness of breath, or wheezing) RF: 0 cholecalciferol (vitamin D3) [Vitamin D3] 50 mcg (2,000 unit) Capsule 50 mcg PO DAILY@1700 RF: 0 Incruse Ellipta 62.5 mcg/actuation blister with device 1 inh INHALATION HS RF: 0 Centrum Silver Men 300-600-300 mcg Tablet 1 tab PO DAILY RF: 0 potassium chloride 20 mEq Tablet Extended Release 20 meq PO DAILY RF: 0 Discontinued diclofenac sodium [Voltaren Arthritis Pain] 1 % Gel 2 g TOPICAL BID PRN (Reason: Pain) RF: 0 aspirin [Aspirin Low Dose] 81 mg Tablet,Delayed Release (Dr/Ec) 81 mg PO HS RF: 0 Discharge Orders: Discharge Order (Routine); Ordered 08/02/21 Ordered By: Radha Cotto Admission Data Admit Date/Time: 07/31/21 08:48 Attending Provider: Radha Cotto Admit Provider: Radha Cotto Primary Care Provider: Deborah ROSS Providers: Radha Cotto
== END 2021-08-02 16:36 | disposition home or self-care (01) | DRG 86 ==
LOC: ED 06:09 → EDINP 08:48 → 2S 08-01 15:32